=== PATIENT | female | born 1980 | race Caucasian/White ===

== ENCOUNTER 2023-06-10 08:11 | Outpatient (OUT) | payer BC, OTHER, SELFPAY ==
--- NOTE | 2023-06-10 08:36 | ECG_ITS ---
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
[2023-06-10 09:46] LABS: Partial Thromboplastin Time 28.8 sec (22.3-36.2); Prothrombin Time 9.8 sec (9.0-11.6)
[2023-06-10 10:11] LABS: INR <0.93
[2023-06-10 10:14] LABS: Basophils Absolute Auto 0.1 10^3/uL (0.0-0.1); Basophils Percent Auto 1.5 % (0.2-2.0); Eosinophils Absolute Auto 0.4 10^3/uL (0.0-0.7); Eosinophils Percent Auto 8.2 % (0.9-7.0); Hemoglobin 14.5 g/dL (12.0-16.0); Immature Granulocytes Abs Auto 0.01 10^3/uL (0.00-0.03); Immature Granulocytes Pct Auto 0.2 % (0.0-0.5); Lymphocytes Absolute Auto 1.3 10^3/uL (1.2-3.8); Mean Corpuscular Hemoglobin 29.9 pg (26.7-34.0); Mean Corpuscular Volume 90.7 fL (81.0-99.0); Monocytes Absolute Auto 0.3 10^3/uL (0.3-0.8); Monocytes Percent Auto 5.6 % (1.7-12.0); Neutrophils Absolute Auto 2.7 10^3/uL (1.4-6.5); Neutrophils Percent Auto 56.5 % (43.0-75.0); Platelet Count 289 10^3/uL (150-450); Red Blood Count 4.85 10^6/uL (4.20-5.40); Red Cell Distribution Width 12.9 % (11.0-15.0); White Blood Count 4.8 10^3/uL (4.0-11.0)
[2023-06-10 13:10] LABS: Alanine Aminotransferase 22 U/L (14-59); Albumin Level 3.8 g/dL (3.4-5.0); Alkaline Phosphatase 100 U/L (46-116); Anion Gap 9.3; Aspartate Amino Transferase 11 U/L (15-37); BUN Creatinine Ratio 14.4; Bilirubin Direct 0.1 mg/dL (0.0-0.2); Bilirubin Total 0.3 mg/dL (0.2-1.0); Calcium 10.4 mg/dL (8.5-10.1); Carbon Dioxide 30.5 mmol/L (21.0-32.0); Chloride 103 mmol/L (98-107); Estimated GFR (African America >60 (>=60); Estimated GFR (Non-African Ame >60 (>=60); Globulin 3.9 g/dL; Glucose 79 mg/dL (74-106); Potassium 3.8 mmol/L (3.5-5.1); Sodium 139 mmol/L (136-145); Total Protein 7.7 g/dL (6.4-8.2)
== END 2023-06-10 08:12 | disposition home or self-care (01) ==
LOC: PST 08:15
PROVIDERS: Visit Provider Obstetrics & Gynecology
DX: Z01.810 Encounter for preprocedural cardiovascular examination (principal); Z01.812 Encounter for preprocedural laboratory examination; N92.0 Excessive and frequent menstruation with regular cycle; R10.2 Pelvic and perineal pain; N94.10 Unspecified dyspareunia
CPT/HCPCS: 80048; 80076; 85025; 85610; 85730; 86850; 86900; 86901; 93005

== ENCOUNTER 2023-06-19 11:00 | Day surgery (SDC) | payer BC, OTHER, SELFPAY ==
[2023-06-10 08:43] VITALS: BP 137/89; PULSE 89; RESP 18; TEMP 36.4; O2SAT 98; BMI 37.5
[2023-06-19] VITALS (14 sets, daily range): BP systolic 92–147; BP diastolic 61–97; PULSE 78–120; RESP 10–18; TEMP 36.2–37.1; O2SAT 88–98; BMI 37.5; BMI 39.5
[2023-06-19] MEDS: LACTATED RINGER'S SOLUTION 1,000 ML 50 ML IV ×2 (11:41→13:49)
[2023-06-19] MEDS: CIPROFLOXACIN IN 5 % DEXTROSE 400 MG/200 ML PIGGYBACK 200 MG IV (11:41)
[2023-06-19 12:02] LABS: Basophils Absolute Auto 0.1 10^3/uL (0.0-0.1); Eosinophils Absolute Auto 0.4 10^3/uL (0.0-0.7); Eosinophils Percent Auto 5.4 % (0.9-7.0); Hematocrit 41.1 % (36.0-48.0); Hemoglobin 13.6 g/dL (12.0-16.0); Immature Granulocytes Abs Auto 0.01 10^3/uL (0.00-0.03); Immature Granulocytes Pct Auto 0.1 % (0.0-0.5); Lymphocytes Absolute Auto 1.7 10^3/uL (1.2-3.8); Lymphocytes Percent Auto 23.9 % (20.5-60.0); Mean Corpuscular HGB Conc 33.1 g/dL (29.9-35.2); Mean Corpuscular Hemoglobin 29.9 pg (26.7-34.0); Mean Corpuscular Volume 90.3 fL (81.0-99.0); Mean Platelet Volume 10.3 fL (9.5-13.5); Monocytes Absolute Auto 0.4 10^3/uL (0.3-0.8); Monocytes Percent Auto 5.8 % (1.7-12.0); Neutrophils Absolute Auto 4.5 10^3/uL (1.4-6.5); Neutrophils Percent Auto 63.8 % (43.0-75.0); Platelet Count 261 10^3/uL (150-450); Red Blood Count 4.55 10^6/uL (4.20-5.40); Red Cell Distribution Width 12.8 % (11.0-15.0); White Blood Count 7.1 10^3/uL (4.0-11.0)
[2023-06-19 12:05] LABS: HCG Quantitative <1 mIU/mL
[2023-06-19] MEDS: SCOPOLAMINE 1 MG/3 DAYS TRANSDERM PATCH 1 PATCH TD (12:44)
[2023-06-19] MEDS: METRONIDAZOLE/SODIUM CHLORIDE 500 MG/100 ML PREMIX 100 MG IV ×3 (13:00→23:09)
[2023-06-19] MEDS: 0.9 % SODIUM CHLORIDE 10 ML 30 ML INJ (13:24)
[2023-06-19] MEDS: LIDOCAINE HCL 1%-EPINEPHRINE 1:100,000 20 ML MDV INJ (13:25)
--- NOTE | 2023-06-19 16:01 | P.ON_ITS ---
Brief Operative Note Date of procedure: 06/19/23 Pre-op diagnosis: pelvic pain, dyspareunia, menorrhagia, dysmenorrhea Post-op diagnosis: same as pre-op Procedure: NAME OF PROCEDURE: ? vNOTES hysterectomy with bilateral salpingectomy with cystoscopy. removal of essure coils and lt ovarian cystotomy using a needle. PROCEDURE:? Patient was brought back to the operating room where she was given general anesthesia.? She was placed in the dorsolithotomy position, after being prepped and draped in a sterile fashion.? A Wright catheter was placed.? A weighted speculum was placed posterior in the vagina.? The cervix was grasped anteriorly and posteriorly with two single tooth tenaculums and placed on traction.? A solution of Marcaine, lidocaine and epinephrine and saline was liberally infiltrated into the cervical vaginal junction.? The knife was then used to circumscribe the cervical vaginal junction and the posterior cul-de-sac was sharply entered without difficulty.? A long weighted duck tail speculum was placed and the peritoneum was tacked to the vaginal epithelium.? We then turned our attention to the uterosacral ligaments which were bilaterally cross clamped, transected and suture ligated and then were held with hemostats.? Attention was then turned to the anterior compartment, where the cervical vaginal junction was similarly divided, and the bladder was then sharply and bluntly dissected off the cervix and the lower uterine segment, and the anterior cul-de-sac was sharply entered.? The vaginal epithelium was tacked to the peritoneum.? Lateral attachments of the uterus were secured with Ever clamps and suture ligated.? The retractors were then removed and were placed by the path inner ring anteriorly followed by posteriorly.? Once the ring was seated, the gel cap was placed and the laparoscopic ports were placed through this cap and the gas was allowed to insufflate the pelvis.? A GynLap was placed posteriorly to facilitate mobilization of the bowel, control bleeding.? This was later retrieved.? The LigaSure device was used to secure the lateral attachments of the uterus on the left side, including the cardinal ligaments and the uterine vasculature.? Once the utero-ovarian ligament was reached, we turned our attention to the right side where the LigaSure device was used to fully detach the uterus from the pelvic side wall.? Please note the ligasure was used to perform bilateral salpingectomy, excellent hemostasis was noted. The ureters were seen visually; before, during and after the pedicles were created.? The ureters were bilaterally in normal locations, peristalsing.? ?? Please note that the LigaSure was used on the patient?s left side to fully detach the uterus from the pelvic side wall.? The uterus was removed from the field.? The GynLap was also removed from the field.? The inner ring and gel port caps were removed and the vaginal retractors were replaced.? Lateral figure of eight sutures were placed bilaterally, where bleeding occurred, behind the ring, and no further sutures were needed.? The colpopexy was then carried out, passing a stitch posteriorly to the vaginal wall, capturing the left uterosacral ligament, going across the peritoneum posteriorly to the right and exiting out the vaginal wall posteriorly.? The vaginal cuff was closed in a single running locked stitch using 0 Monocryl, and the uterosacral ligaments were cut.? Once the vaginal cuff was fully closed, the uterosacral colpopexy stitch was then tied down tightly, elevating the vaginal cuff to the uterosacral ligaments in a satisfactory manner.? The Wright catheter was removed and the patient was awakened and taken to recovery in excellent condition.? Sponge, lap and instruments counts correct x2.? lt ovarian cystotomy using a needle, essure coils removed with tubes. Anesthesia: DAVID Surgeon: Nahun Argueta Disease Education Specialist: Mariya Wan Estimated blood loss (mL): 499 Pathology: other (uterus and tubes) Condition: stable Disposition: PACU
[2023-06-19] MEDS: ONDANSETRON PF 4 MG/2 ML VIAL IV (16:31)
[2023-06-19] MEDS: OXYCODONE HCL/ACETAMINOPHEN 5MG/325MG 1 TAB PO (23:11)
[2023-06-20] MEDS: CIPROFLOXACIN IN 5 % DEXTROSE 400 MG/200 ML PIGGYBACK 200 MG IV (00:13)
[2023-06-20 05:08] LABS: Basophils Percent Auto 0.1 % (0.2-2.0); Hematocrit 33.4 % (36.0-48.0); Immature Granulocytes Abs Auto 0.02 10^3/uL (0.00-0.03); Immature Granulocytes Pct Auto 0.2 % (0.0-0.5); Lymphocytes Absolute Auto 0.8 10^3/uL (1.2-3.8); Lymphocytes Percent Auto 7.4 % (20.5-60.0); Mean Corpuscular HGB Conc 32.9 g/dL (29.9-35.2); Mean Corpuscular Hemoglobin 30.1 pg (26.7-34.0); Mean Corpuscular Volume 91.3 fL (81.0-99.0); Mean Platelet Volume 10.6 fL (9.5-13.5); Monocytes Absolute Auto 0.5 10^3/uL (0.3-0.8); Monocytes Percent Auto 4.4 % (1.7-12.0); Neutrophils Absolute Auto 9.9 10^3/uL (1.4-6.5); Neutrophils Percent Auto 87.9 % (43.0-75.0); Platelet Count 238 10^3/uL (150-450); Red Blood Count 3.66 10^6/uL (4.20-5.40); Red Cell Distribution Width 12.7 % (11.0-15.0); White Blood Count 11.3 10^3/uL (4.0-11.0)
[2023-06-20 05:56] VITALS: BP 127/67; PULSE 115; RESP 18; TEMP 36.8; O2SAT 91
[2023-06-20] MEDS: OXYCODONE HCL/ACETAMINOPHEN 5MG/325MG 1 TAB PO (07:48)
[2023-06-20] MEDS: MAGNESIUM HYDROXIDE 2,400 MG/10 ML ORAL.SUSP 2400 MG PO (07:48)
== END 2023-06-20 08:18 | disposition home or self-care (01) ==
LOC: SURGOUT 15:16 → MS 16:44
PROVIDERS: Visit Provider Obstetrics & Gynecology
PROC: (CPT 49322; principal; 2023-06-19 12:30)
DX: N92.0 Excessive and frequent menstruation with regular cycle (principal); R10.2 Pelvic and perineal pain; N94.10 Unspecified dyspareunia; I10 Essential (primary) hypertension; N72 Inflammatory disease of cervix uteri
CPT/HCPCS: 49322; 58552; 36415; 51702; 84702; 85025; 85027; 88307; 94667; J1170; J2704

== ENCOUNTER 2024-07-09 06:59 | Outpatient (OUT) | payer BC, OTHER, SELFPAY ==
--- NOTE | 2024-07-09 07:03 | MM_ITS ---
Patient Name: CHRIS CRAWFORD MR#: [id number] : 1980 Exam Date: 07/09/2024 Ordering Doctor: DR Nahun Argueta . RADIOLOGY REPORT PROCEDURE: MM TOMOSYNTHESIS SCREENING BI COMPARISON: MG MAMM SCREEN 3D JOE CAD, 12/18/2022. INDICATIONS: Screening Calculator Name NCI Breast Cancer Risk Assessment Tool 5 Year Breast Cancer Risk 0.60% Lifetime Breast Cancer Risk 8.80% Personal Breast Cancer No Personal Ovarian Cancer No Treatments None Family Cancers None LOCATION: [facility] BREAST COMPOSITION: The breasts are heterogeneously dense,which may obscure small masses. FINDINGS: DIAGNOSTIC CATEGORY 2--BENIGN FINDING. NO CHANGE FROM COMPARISON. Scattered benign-appearing calcifications are present. Scattered benign-appearing lymph nodes are present. RIGHT BREAST: No significant suspicious finding. LEFT BREAST: No significant suspicious finding. RECOMMENDATIONS: ROUTINE MAMMOGRAM AND CLINICAL EVALUATION IN 12 MONTHS. PLEASE NOTE: A NORMAL MAMMOGRAM DOES NOT EXCLUDE THE POSSIBILITY OF BREAST CANCER. A CLINICALLY SUSPICIOUS PALPABLE LUMP SHOULD BE BIOPSIED. Dictated by: Glen Brown MD on 07/09/2024 at 07:51 Approved by: Glen Brown MD on 07/09/2024 at 07:52
== END 2024-07-09 07:00 | disposition home or self-care (01) ==
LOC: MAMMO 07:00
PROVIDERS: PCP Family Medicine; Visit Provider Obstetrics & Gynecology
DX: Z12.31 Encounter for screening mammogram for malignant neoplasm of breast (principal)
CPT/HCPCS: 77063; 77067

== ENCOUNTER 2024-08-09 20:24 | Outpatient (REF) | payer BC, OTHER, SELFPAY ==
--- OUTSIDE RECORDS SUMMARY | 2024-08-09 20:28 | XMS_ITS | CCD ---
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 Role Phone Nicho Mayen Unavailable SAIRA ., ZAINAB Admitting Unavailable SAIRA ., ZAINAB Attending Unavailable SAIRA ., ZAINAB Consulting Unavailable SAIRA ., ZAINAB Admitting Unavailable SAIRA Johnson, ZAINAB Attending Unavailable DR BRYON EUGENE Consulting Unavailable SAIRA ., ZAINAB Consulting Unavailable Anay Peacock Consulting Unavailable ZAINAB CHÁVEZ Attending Unavailable Nicho Mayen MD Primary Care Provider [phone] Allergies Allergy Classification Reported Allergen(s) Allergy Type Date of Onset Reaction(s) Facility (9 sources) Azithromycin Drug Allergy 3 Hives, Unknown [facility] Work Phone: (7 sources) Cefaclor; Translations: [Ceclor] Drug Allergy 3 Unknown [facility] (1 source) Azithromycin Drug Allergy 3 [facility] (3 sources) Cefaclor Drug Allergy 3 Hives [facility] Medications Current Medications Medication Drug Class(es) Dates Sig (Normalized) Sig (Original) fluticasone propionate 0.05 mg/actuat metered dose nasal spray (3 sources) Corticosteroid fluticasone (Flonase Allergy Relief) 50 MCG/ACT nasal spray 1 (one) time each day at the same time. Active hydroCHLOROthiazide 12.5 mg / lisinopril 10 mg oral tablet (9 sources) Thiazide Diuretic, Angiotensin Converting Enzyme Inhibitor lisinopril-hydr oCHLOROthiazide 10-12.5 MG tablet Indications: Menorrhagia with irregular cycle 1 (one) time each day at the same time. Active ibuprofen 800 mg oral tablet (3 sources) Nonsteroidal Anti-inflammatory Drug Start: 10-13-2023 take 1 tablet by mouth every eight hours ibuprofen 800 MG tablet Take 800 mg by mouth every 8 (eight) hours. 06/20/2023 Active Tobramycin-Dexamethasone 0.3-0.05 % (3 sources) take 1 drop(s) into the eye(s) twice daily Tobramycin-Dexa methasone 0.3-0.05 % 1 drop(s) Ophthalmic bid Active Completed/Discontinued Medications Medication Drug Class(es) Dates Sig (Normalized) Sig (Original) benzonatate 100 mg oral capsule (6 sources) Non-narcotic Antitussive Start: 09-12-2021 take 1 capsule by mouth three times daily as needed Tessalon Perles 100 MG 1 capsule as needed Orally Three times a day Sep, Not-Taking/PRN ciprofloxacin 500 mg oral tablet (6 sources) Quinolone Antimicrobial take 1 tablet by mouth every twelve hours Ciprofloxacin HCl 500 MG 1 tablet Orally Twice a day Not-Taking/PRN hydrOXYzine pamoate 25 mg oral capsule (6 sources) Antihistamine Start: 04-06-2019 take 1 capsule by mouth every eight hours as needed hydrOXYzine Pamoate 25 MG 1-2 capsule as needed for itching Orally every 8 hrs caution drowsiness Mar, Not-Taking/PRN Tobramycin-dexAMETH asone 0.3-0.05 % (3 sources) take 1 drop(s) into the eye(s) twice daily as needed Tobramycin-dexAMET Hasone 0.3-0.05 % 1 drop(s) Ophthalmic bid Not-Taking/PRN take 1 drop(s) into the eye(s) twice daily Tobramycin-dexAMETHasone 0.3-0.05 % 1 dr op(s) Ophthalmic bid Active Problems Active Problems Problem Classification Problem Date Documented Date Episodic/Chronic Essential hypertension (7 sources) Essential hypertension; Translations: [Essential (primary) hypertension] Chronic Menstrual disorders (7 sources) Excessive and frequent menstruation with irregular cycle; Translations: [Menometrorrhagia] Onset: 12-18-2022 Chronic Other ear and sense organ disorders (3 sources) Chronic otitis externa; Translations: [Unspecified chronic otitis externa, unspecified ear] Onset: 02-04-2023 02-04-2023 Chronic Other ear and sense organ disorders (3 sources) Left conductive hearing loss; Translations: [Conductive hearing loss, unilateral, left ear, with unrestricted hearing on the contralateral side] Onset: 02-04-2023 02-04-2023 Chronic Other screening for suspected conditions (not mental disorders or infectious disease) (3 sources) Encounter for screening mammogram for malignant neoplasm of breast; Translations: [Patient encounter status] Onset: 12-23-2022 08-09-2024 Episodic Ovarian cyst (1 source) Other ovarian cyst, right side; Translations: [OTHER OVARIAN CYST RIGHT SIDE] Onset: 12-23-2022 Episodic Residual codes; unclassified (6 sources) Insomnia; Translations: [Insomnia, unspecified] Episodic Viral infection (6 sources) Plantar wart of right foot; Translations: [Plantar wart] Episodic Past or Other Problems Problem Classification Problem Date Documented Da te Episodic/Chronic Unclassified (1 source) Cough R05.9 Onset: 09-12-2021 Resolved: 09-12-2021 Unclassified (1 source) Exposure to COVID-19 virus Z20.822 Onset: 09-17-2021 Resolved: 09-17-2021 Results Test Name Value Interpretation Reference Range Facility CBC AUTO DIFFon 12-18-2022 BASO # 0.0 103/ul Normal 0.0-0.1 [facility] Comment on above: Performed By: #### C BC #### [facility] [address] [place] [address] Dr. Christopher Arzola Basophils/100 WBC (Bld) 0.4 % Normal 0.2-2.0 [facility] Comment on above: Performed By: #### C BC #### [facility] [address] [place] [address] Dr. Christopher Arzola EO # 0.1 103/ul Normal 0.0-0.7 [facility] Comment on above: Performed By: #### C BC #### [facility] [address] [place] [address] Dr. Christopher Arzola Eosinophils/100 WBC (Bld) 2.3 % Normal 0.9-7.0 [facility] Comment on above: Performed By: #### C BC #### [facility] [address] [place] [address] Dr. Christopher Arzola Erythrocyte distribution width (RBC) [Ratio] 12.8 % Normal 11.0-15.0 [facility] Comment on above: Performed By: #### C BC #### [facility] [address] [place] [address] Dr. Christopher Arzola Hematocrit (Bld) [Volume fraction] 40.8 % Normal 36.0-48.0 [facility] Comment on above: Performed By: #### C BC #### [facility] [address] [place] [address] Dr. Christopher Arzola Hemoglobin (Bld) [Mass/Vol] 13.8 g/dL Normal 12.0-16.0 [facility] Comment on above: Performed By: #### C BC #### [facility] [address] [place] [address] Dr. Christopher Arzola IG # 0.02 10e3/ul Normal 0.00-0.03 [facility] Comment on above: Performed By: #### C BC #### [facility] [address] [place] [address] Dr. Christopher Arzola IG % 0.4 % Normal 0.0-0.5 [facility] Comment on above: Performed By: #### C BC #### [facility] [address] [place] [address] Dr. Christopher Arzola LYMPH # 1.1 103/ul Critically low 1.2-3.8 [facility] Comment on above: Performed By: #### C BC #### [facility] [address] [place] [address] Dr. Christopher Arzola Lymphocytes/100 WBC (Bld) 20.9 % Normal 20.5-60.0 [facility] Comment on above: Performed By: #### C BC #### [facility] [address] [place] [address] Dr. Christopher Arzola MANUAL DIFF REQ NO Normal [facility] Comment on above: Performed By: #### C BC #### [facility] [address] [place] [address] Dr. Christopher Arzola MCH (RBC) [Entitic mass] 29.6 pg Normal 26.7-34.0 [facility] Comment on above: Performed By: #### C BC #### [facility] [address] [address] [address] Christopher Arzola MCHC (RBC) [Mass/Vol] 33.8 g/dL Normal 29.9-35.2 [facility] Comment on above: Performed By: #### C BC #### [facility] [address] [address] [address] Christopher Arzola MCV (RBC) [Entitic vol] 87.6 fL Normal 81.0-99.0 [facility] Comment on above: Performed By: #### C BC #### [facility] [address] [place] [address] Dr. Christopher Arzola MONO # 0.4 103/ul Normal 0.3-0.8 [facility] Comment on above: Performed By: #### C BC #### [facility] [address] [place] [address] Dr. Christopher Arzola Monocytes/100 WBC (Bld) 6.9 % Normal 1.7-12.0 [facility] Comment on above: Performed By: #### C BC #### [facility] [address] [place] [address] Dr. Christopher Arzola NEUT # 3.6 103/ul Normal 1.4-6.5 [facility] Comment on above: Performed By: #### C BC #### [facility] [address] [place] [address] Dr. Christopher Arzola Neutrophils/100 WBC (Bld) 69.1 % Normal 43.0-75.0 [facility] Comment on above: Performed By: #### C BC #### [facility] [address] [place] [address] Dr. Christopher Arzloa Platelet mean volume (Bld) [Entitic vol] 9.5 fL Normal 9.5-13.5 [facility] Comment on above: Performed By: #### C BC #### [facility] [address] [place] [address] Dr. Christopher Arzola PLT 230 103/ul Normal 150-450 [facility] Comment on above: Performed By: #### C BC #### [facility] [address] [place] [address] Dr. Christopher Arzola RBC 4.66 106/ul Normal 4.20-5.40 [facility] Comment on above: Performed By: #### C BC #### [facility] [address] [place] [address] Dr. Christopher Arzola WBC 5.2 103/ul Normal 4.0-11.0 [facility] Comment on above: Performed By: #### C BC #### [facility] [address] [place] [address] Dr. Christopher Arzola FREE T4on 12-18-2022 Free T4 [Mass/Vol] 1.06 ng/dL Normal 0.76-1.46 [facility] Comment on above: Performed By: #### F T4 #### [facility] [address] [place] [address] Dr. Christopher Arzola GLYCOHEMOGLOBIN A1Con 2022 ADA RECOMMENDATION SEE BELOW Normal [facility] Comment on above: Result Comment: ADA RECOMMENDED LIMIT 4.0 - 6.0 ADA THERAPEUTIC TARGET < 7.0 ACTION SUGGESTED > 7.0 Performed By: #### A 1C #### [facility] [address] [place] [address] Dr. Christopher Arzola Glucose [Mass/Vol] 97 mg/dL Normal [facility] Comment on above: Performed By: #### A 1C #### [facility] [address] [place] [address] Dr. Christopher Arzola HbA1c (Bld) [Mass fraction] 5.0 % Normal 4.5-6.2 [facility] Comment on above: Performed By: #### A 1C #### [facility] [address] [place] [address] Dr. Christopher Arzola MG MAMM SCREEN 3D JOE CADon 12-18-2022 MG MAMM SCREEN 3D JOE CAD Patient: DARA CONCEPCION Exam Date: 12/18/2022 : 1980 Gender:F Ordering : REINA CHÁVEZ . Admission #: [id number] Family : Order #: [id number] CLICK HERE TO VIEW EXAM RADIOLOGY REPORT PROCEDURE: MAMMOGRAM SCREENING 3D BILATERAL CAD COMPARISON: None. INDICATIONS: Screening mammography Calculator Name NCI Breast Cancer Risk Assessment Tool 5 Year Breast Cancer Risk 0.60% Lifetime Breast Cancer Risk 8.90% Personal Breast Cancer No Personal Ovarian Cancer No Treatments None Family Cancers None LOCATION: [facility] BREAST COMPOSITION: Heterogeneously dense,which may obscure small masses. FINDINGS: DIAGNOSTIC CATEGORY 1--NEGATIVE. RIGHT BREAST: No significant suspicious finding. LEFT BREAST: No significant suspicious finding. RECOMMENDATIONS: ROUTINE MAMMOGRAM AND CLINICAL EVALUATION IN 12 MONTHS. PLEASE NOTE: A NORMAL MAMMOGRAM DOES NOT EXCLUDE THE POSSIBILITY OF BREAST CANCER. A CLINICALLY SUSPICIOUS PALPABLE LUMP SHOULD BE BIOPSIED. Dictated by: Bryon Eugene M.D. on 12/18/2022 at 13:13 Approved by: Bryon Eugene M.D. on 12/18/2022 at 13:15 Normal [facility] PREG QUANT HCGon 12-18-2022 HCG QUANT <1 Normal [facility] Comment on above: Performed By: #### T SH, PREGQNT #### [facility] [address] [place] [address] Dr. Christopher Arzola HCG RANGE SEE BELOW [facility] Comment on above: Result Comment: 5-50 0.2-1 WEEK 50-500 1-2 WEEKS 100-5,000 2-3 WEEKS 500-10,000 3-4 WEEKS 1,000-50,000 4-5 WEEKS 10,000-100,000 5-6 WEEKS 15,000-200,000 6-8 WEEKS 10,000-100,000 2-3 MONTHS Performed By: #### T SH, PREGQNT #### [facility] [address] [address] [address] Christopher Arzola PROTIMEon 12-18-2022 INR Coag (PPP) [Relative time] {INR} [facility] Comment on above: Performed By: #### P T, PTT #### [facility] [address] [place] [address] Dr. Christopher Arzola INR GUIDELINES SEE BELOW Normal [facility] Comment on above: Result Comment: ERIC RED INR: 2.0 - 3.0 CONDITIONS NOT LISTED BELOW 2.5 - 3.5 FOR PROSTHETIC HEART VALVE REPLACEMENT 2.5 - 3.5 RECURRENT THROMBOSIS Performed By: #### P T, PTT #### [facility] [address] [place] [address] Dr. Christopher Arzola PT Coag (PPP) [Time] 9.6 s Normal 9.0-11.6 [facility] Comment on above: Performed By: #### P T, PTT #### [facility] [address] [place] [address] Dr. Christopher Arzola PTTon 12-18-2022 aPTT Coag (Bld) [Time] 30.1 s Normal 22.3-36.2 [facility] Comment on above: Performed By: #### P T, PTT #### [facility] [address] [place] [address] Dr. Christopher Arzola TSHon 12-18-2022 TSH 1.159 uIU/mL Normal 0.358-3.740 [facility] Comment on above: Performed By: #### T SH, PREGQNT #### [facility] [address] [place] [address] Dr. Christopher Arzola US PELVIS AND TRANSVAGon US PELVIS AND TRANSVAG EXAM: Pelvic ultrasound HISTORY: . Excessive menstruation with irregular cycle . COMPARISON: None. TECHNIQUE: Transabdominal and transvaginal scanning was performed FINDINGS: Scanning of the pelvis demonstrates uterus to be anteverted and measures 9.6 x 3.7 x 4.4 cm. Within the myometrium of the fundus of uterus there is a 2.2 x 2 cm slightly hypoechoic solid area consistent with uterine fibroid. Endometrial complex measures 5 mm. Right ovary measures 4.3 x 3.4 x 3.2 cm. Color-flow is noted. Resistive indexes 0.5. There is a 3.6 x 2.9 cm cyst within the right ovary. Left ovary measures 2.9 x 1.7 x 1.3 cm. Color-flow is noted. No masses are noted. Nabothian cyst are noted within the cervix. No fluid is noted in the cul-de-sac. IMPRESSION: 1. Anteverted uterus. There is a 2.2 cm) within the myometrium of the fundus of uterus posteriorly. 2. Normal-appearing endometrial complex. 3. 3.6 x 2.9 cm simple cyst involving the right ovary. 4. Left ovary is unremarkable. Electronically authenticated by: ANAY PEACOCK Date: 2022-12-18 08:14 Normal [facility] PAP ACOG PANEL 2: 30 to 65on 12-13-2022 . . Normal [facility] Comment on above: Result Comment: Perf ormed at: WB Performed By: #### [id number] #### [facility] [address] [address] [address] Christopher Arzola Age Gdln ACOG Testing - Normal [facility] Comment on above: Performed By: #### 4 [id number] #### [facility] [address] [address] [address] Christopher Arzola DIAGNOSIS: Comment Normal [facility] Comment on above: Result Comment: NEGA TIVE FOR INTRAEPITHELIAL LESION OR MALIGNANCY. Performed at: WB Performed By: #### [id number] #### [facility] [address] [address] [address] Christopher Arzola HPV Aptima Negative Normal Negative [facility] Comment on above: Result Comment: This nucleic acid amplification test detects fourteen high-risk HPV types (16,18,31,33,35,39,45,51,52,56,58,59,66,68) without differentiation. Performed at: =G Performed By: #### 4 [id number] #### [facility] [address] [address] [address] Christopher Arzola HPV Genotype Reflex Comment Normal [facility] Comment on above: Result Comment: Crit eria not met, HPV Genotype not performed. Performed at: WB Performed By: #### [id number] #### [facility] [address] [address] [address] Christopher Arzola Methodology: CTIM Normal [facility] Comment on above: Result Comment: The [employer](R) Director Of Social Media Marketing was unable to read this specimen. Therefore a manual review was performed. Performed at: WB Performed By: #### [id number] #### [facility] [address] [address] [address] Christopher Arzola Note: Comment Normal [facility] Comment on above: Result Comment: The Pap smear is a screening test designed to aid in the detection of premalignant and malignant conditions of the uterine cervix. It is not a diagnostic procedure and should not be used as the sole means of detecting cervical cancer. Both false-positive and false-negative reports do occur. . Performed at: WB Performed By: #### [id number] #### [facility] [address] [address] [address] Christopher Arzola Performed by: Comment Normal [facility] Comment on above: Result Comment: Allan Lozano, [employer] (ASCP) Performed at: WB Performed By: #### [id number] #### [facility] [address] [place] [address] Dr. Christopher Arzola Specimen adequacy: Comment Normal [facility] Comment on above: Result Comment: Sati sfactory for evaluation. Endocervical and/or squamous metaplastic cells (endocervical component) are present. Performed at: WB Performed By: #### [id number] #### [facility] [address] [place] [address] Dr. Christopher Arzola COVID-19 Lab Corpon 10-08-19 22 SARS-CoV-2 (COVID-19) RNA BREANNA+probe Ql (Unsp spec) Detected Critically abnormal Not Detected [facility] Comment on above: Order Comment: Healt hcare Worker?: N Result Comment: Cassidy ents who have a positive COVID-19 test result may now have treatment options. Treatment options are available for patients with mild to moderate symptoms and for hospitalized patients. Visit our website at [email or web address] for resources and information. This nucleic acid amplification test was developed and its performance characteristics determined by [employer]. Nucleic acid amplification tests include RT- PCR and TMA. This test has not been FDA cleared or approved. This test has been authorized by FDA under an Emergency Use Authorization (EUA). This test is only authorized for the duration of time the declaration that circumstances exist justifying the authorization of the emergency use of in vitro diagnostic tests for detection of SARS-CoV-2 virus and/or diagnosis of COVID-19 infection under section 564(b)(1) of the Act, 21 U.S.C. 360bbb-3(b) (1), unless the authorization is terminated or revoked sooner. When diagnostic testing is negative, the possibility of a false negative result should be considered in the context of a patient's recent exposures and the presence of clinical signs and symptoms consistent with COVID-19. An individual without symptoms of COVID-19 and who is not shedding SARS-CoV-2 virus would expect to have a negative (not detected) result in this assay. PERFORMED BY: [address] [place] [address] PATHOLOGIST IDENTIFICATION TECHNICIAN AN ALBA M.D. Performed By: #### C ORONAVIRUS #### [facility] , COVID + FLU Quick Testingon 09-17-2021 SARS-CoV-2 (COVID-19) RNA BREANNA+probe Ql (Unsp spec) Negative [facility] Other COVID + FLU Quick Testing Negative [facility] Other Ear Cultureon 06-29-2021 Ear Culture Reason for Exam Otorrhea Ear, Right ORGANISM: Pseudomonas aeruginosa (O:PSEAER) Quantity of Growth Heavy Growth ORGANISM: Staphylococcus aureus (O:STAAUR) Quantity of Growth Moderate Growth Aerobic LOR[facility]ZA Charge (NUC86) ----- SUSCEPTIBILITY ---- ORGANISM: O:PSEAER ANTIBIOTIC INTERPRETATION [facility] Amikacin S <16 Aztreonam IB <4 Cefepime S <2 Ceftazidime IB <1 Ceftazidime/Avibacta m S <8 Ciprofloxacin S <1 Gentamicin S <4 Levofloxacin S <2 Meropenem S <1 Piperacillin/Tazobac dubose IB <16 Tobramycin S <4 Aerobic LOR[facility]ZA Charge (PC45) ----- SUSCEPTIBILITY ---- ORGANISM: O:STAAUR ANTIBIOTIC INTERPRETATION [facility]OR[facility]ZA Amoxacillin/K Clavulanate S <4/2 Ampicillin/Sulbactam S <8/4 Azithromycin S <2 Cefazolin S <8 Ceftaroline S <0.5 Ceftriaxone S <8 Ciprofloxacin S <1 Clindamycin S <0.5 Daptomycin S <1 Erythromycin S <0.25 Levofloxacin S <1 Linezolid S <2 Meropenem S <4 Oxacillin S <0.25 Penicillin S <0.03 Piperacillin/Tazobac dubose S <4 Rifampin S <1 Tetracycline S <4 Trimethoprim/Sulfame thoxazole S <0.5/9.5 Vancomycin S 1 S = SUSCEPTIBLE I = INTERMEDIATE R = RESISTANT BLANK = DATA NOT AVAILABLE, OR DRUG NOT ADVISABLE OR TESTED R* = RESISTANCE DUE TO EXTENDED SPECTRUM BETA-LACTAMASES ESBL = EXTENDED SPECTRUM BETA-LACTAMASE TFG = THYMIDINE-DEPENDENT STRAIN ADIA = BETA-LACTAMASE POSITIVE IB = INDUCIBLE BETA-LACTAMASE. APPEARS IN PLACE OF 'S' WITH SPECIES KNOWN TO POSSESS INDUCIBLE BETA-LACTAMASES. POTENTIALLY THEY MAY BECOME RESISTANT TO ALL B-LACTAM DRUGS. PERFORMED BY: [place] [address] PATHOLOGIST IDENTIFICATION TECHNICIAN AN ALBA M.D. [facility] Comment on above: Performed By: #### JOHN TAPIA #### [place] [id number] [facility] Fungus Cultureon 06-29-2021 Fungus Culture Reason for Exam Otorrhea Ear, Right Fungus Culture Results No Growth 4 Weeks PERFORMED BY: [place] [address] PATHOLOGIST IDENTIFICATION TECHNICIAN AN ALBA M.D. [facility] Comment on above: Performed By: #### JOHN TAPIA #### [address] [place] [id number] [facility] Vital Signs Date Time Vital Sign Value Performing Clinician Facility 08-09-2024 09:29-0500 Body height 165.1 cm Zainab HUANG Work Phone: [facility] 08-09-2024 09:29-0500 Body mass index (BMI) [Ratio] 37.44 kg/m2 Zainab Chávez PA Work Phone: [facility] 08-09-2024 09:29-0500 Body weight 102.06 kg Zainab Chávez PA Work Phone: [facility] 08-09-2024 09:29-0500 Diastolic blood pressure 70 mm[Hg] Zainab Chávez PA Work Phone: [facility] 08-09-2024 09:29-0500 Systolic blood pressure 108 mm[Hg] Zainab Chávez PA Work Phone: [facility] 10-06-2023 08:00-0500 Body height 166.37 cm Nicho Mast Other [facility] Other 10-06-2023 08:00-0500 Body mass index (BMI) [Ratio] 36.29 kg/m2 Nicho Mast Other [facility] Other 10-06-2023 08:00-0500 Body temperature 97.5 [degF] Nicho Mast Other [facility] Other 10-06-2023 08:00-0500 Body weight 100.47 kg Nicho Mast Other [facility] Other 10-06-2023 08:00-0500 Diastolic blood pressure 82 mm[Hg] Nicho Mast Other [facility] Other 10-06-2023 08:00-0500 Respiratory rate 18 /min Nicho Mast Other [facility] Other 10-06-2023 08:00-0500 SaO2% (BldA) [Mass fraction] 98 % Nicho Mast Other [facility] Other 10-06-2023 08:00-0500 Systolic blood pressure 130 mm[Hg] Nicho Mast Other [facility] Other 09-12-2021 16:30-0500 Body height 166.37 cm Nicho Mast Other [facility] Other 09-12-2021 16:30-0500 Body mass index (BMI) [Ratio] 37.46 kg/m2 Nicho Mast Other [facility] Other 09-12-2021 16:30-0500 Body temperature 98 [degF] Nicho Mast Other [facility] Other 09-12-2021 16:30-0500 Body weight 103.69 kg Nicho Mast Other [facility] Other 09-12-2021 16:30-0500 Diastolic blood pressure 80 mm[Hg] Nicho Mast Other [facility] Other 09-12-2021 16:30-0500 Respiratory rate 18 /min Nicho Mast Other [facility] Other 09-12-2021 16:30-0500 SaO2% (BldA) [Mass fraction] 99 % Nicho Mast Other [facility] Other 09-12-2021 16:30-0500 Systolic blood pressure 120 mm[Hg] Nicho Mast Other [facility] Other Encounters Encounter Date Encounter Type Care Provider Facility Start: 08-09-2024 End: 08-09-2024 Vincent HUANG Work Phone: [facility] Start: 08-09-2024 End: 08-09-2024 Bamboo flowsheet Zainab HUANG Work Phone: [facility] Start: 08-09-2024 End: 08-09-2024 Patient encounter procedure Zainab HUANG Work Phone: [facility] Work Phone: Start: 08-09-2024 End: 08-09-2024 Periodic preventive med est patient 40-64yrs Zainab HUANG Work Phone: [facility] Comment on above: Well woman exam with routine gynecological exam; Breast cancer screening by mammogram Start: 10-06-2023 End: 10-06-2023 ambulatory Nicho Mast Other [employer] Other Start: 10-06-2023 Office outpatient vi sit 15 minutes Nicho Mast [facility] Start: 09-11-2023 End: 09-11-2023 ambulatory Nicho Mast Other [employer] Other Start: 09-11-2023 Telephone encounter Nicho Mast [facility] Start: 08-25-2023 End: 08-25-2023 ambulatory Nicho Mast Other [employer] Other Start: 08-25-2023 Telephone encounter Nicho Mast [facility] Start: 08-04-2023 End: 08-04-2023 ambulatory ZAINAB CHÁVEZ Not Available Start: 12-18-2022 End: 12-19-2022 ambulatory ZAINAB CHÁVEZ . Facility:[facility] Start: 12-09-2022 End: 12-09-2022 ambulatory ZAINAB CHÁVEZ . Facility:[facility] Start: 08-19-2022 End: 08-19-2022 ambulatory Nicho Mast Other [employer] Other Start: 08-19-2022 Telephone encounter Nicho Mast [facility] Start: 09-17-2021 End: 09-17-2021 ambulatory Nicho Mast Other [employer] Other Start: 09-17-2021 Office outpatient vi sit 10 minutes Nicho Mast [facility] Start: 09-12-2021 End: 09-12-2021 ambulatory Nicho Mast Other [facility] [employer] Other Start: 09-12-2021 Office outpatient vi sit 15 minutes Nicho Mast [facility] Procedures Date Procedure Procedure Detail Performing Clinician Start: 07-09-2024 Mammography Zainab HUANG Work Phone: Start: 12-09-2022 Microscopic observat ion [Identifier] in Cervix by Cyto stain Zainab HUANG Work Phone: Plan of Treatment Date Care Activity Detail Author Start: 12-10-2027 Screening for malignant neoplasm of cervix [facility] Start: 08-15-2025 End: 08-15-2025 Patient encounter procedure 08/15/2025 9:00 AM EST Office Visit [facility] [address] [place] [address] Zainab Chávez PA [address] [place] [address] [address] [place], [place] [address] [facility] Start: 07-09-2025 Screening for malignant neoplasm of breast Mammogram [facility] Start: 08-09-2024 End: 10-10-2025 MG Breast - bilateral Screening Bilateral screening mammogram Imaging Routine Breast cancer screening by mammogram Expected: 08/09/2024 (Approximate), Expires: 10/10/2025 [facility] Work Phone: Comment on above: Expected: 08/09/2024 (Approximate), Expires: 10/10/2025 Start: 08-09-2024 End: 08-09-2024 Patient encounter procedure 08/09/2024 9:00 AM EST Office Visit [facility] [address] [place] [address] Zainab Chávez PA [address] [place] [address] Ar[address] [facility] Comment on above: Arrived Start: 05-09-2024 Influenza vaccination Influenza Vacc ine (#1) [facility] THIN PREP TIS PAP AN D HR HPV DNA THIN PREP TIS PAP AND HR HPV DNA Pathology and Cytology Routine Well woman exam with routine gynecological exam Ordered: 08/09/2024 [facility] Comment on above: Ordered: 08/09/2024 Immunizations Immunization Date Immunization Notes Care Provider Fa cility 01-12-2021 COVID-19 Vaccine Pfi zer - Documentation Purposes Only Nicho Mast Other [employer] Other 12-22-2020 COVID-19 Vaccine Pfi zer - Documentation Purposes Only Nicho Mast Other [employer] Other 06-08-2020 influenza, injectabl e, quadrivalent, preservative free Nicho Mast Other [employer] Other 06-08-2020 influenza virus vaccine, unspecified formulation Zainab HUANG Work Phone: [facility] 07-10-2018 influenza, seasonal, injectable Nicho Mast Other [employer] Other Payers Date Payer Category Payer Private Health Insurance GENERIC [employer]ERCIAL [id number] 2021 [facility] [id number] 1980 Unknown [id number] 1980 Unknown [id number] 1980 Unknown [id number] 1959 [facility] [id number] 1959 Unknown [id number] Unknown [id number] Social History Date Type Detail Facility Unknown if ever smoked [facility] Other Start: 07-30-2023 End: 08-09-2024 Sex Assigned At [facility] Start: 05-10-2023 Tobacco smoking stat [facility] Never smoked tobacco [facility] Start: 05-10-2023 Tobacco use and exposure Smokeless tobacco non-user [facility] Start: 08-04-2023 End: 08-09-2024 Alcoholic beverage intake Current drinker of alcohol (finding) [facility] Start: 07-30-2023 End: 08-09-2024 History of Social function [facility] How often to you hav e a drink containing alcohol? 2-4 times a month [facility] How many standard drinks containing alcohol do you have on a typical day? 1 or 2 [facility] How often do you hav e 6 or more drinks on 1 occasion? Never [facility] Start: 05-10-2023 Alcohol Comment Alcohol: 1 or 2 drinks on a typical day / 2 to 4 times a month. Caffeine: more than 4 cups per day [facility] Start: 1980 Sex assigned at Not on file [facility] History of Present illness Narrative 08-09-2024 REINA Mcclendon - 08/09/2024 9:00 AM EST Note Date & Type Note Facility 08-09-2024 History of Presen t illness Narrative Reason for Appointment: Patient ID: Dara Concepcion is a 43 y.o. female who presents for Well Women Visit Patient presents today for Annual Exam. MEDICATIONS Current Outpatient Medications Medication Instructions fluticasone (Flonase Allergy Relief) 50 MCG/ACT nasal spray Every 24 hours ibuprofen 800 mg, Oral, Every 8 hours lisinopril-hydroCHLOROthiazide 10-12.5 MG tablet Every 24 hours ALLERGIES Allergies Allergen Reactions Azithromycin Hives and Unknown Cefaclor Hives PROBLEMS Active Ambulatory Problems Diagnosis Date Noted Chronic otitis externa 02/04/2023 Conductive hearing loss of left ear 02/04/2023 Menorrhagia with irregular cycle 02/04/2023 Resolved Ambulatory Problems Diagnosis Date Noted No Resolved Ambulatory Problems Past Medical History: Diagnosis Date History of medical problems 2006 [address]pert[address] ([facility] HISTORY PAST MEDICAL HISTORY SOCIAL HISTORY Past Medical History: Diagnosis Date History of medical problems 2006 Toxemia Hypertension ([facility]) Social History Tobacco Use Smoking status: Never Smokeless tobacco: Never Substance Use Topics Alcohol use: Yes Comment: Alcohol: 1 or 2 drinks on a typical day / 2 to 4 times a month. Caffeine: more than 4 cups per day Drug use: Never FAMILY HISTORY Family History Problem Relation Name Age of Onset Hypertension Mother Asthma Mother Hypertension Father SURGICAL HISTORY Past Surgical History: Procedure Laterality Date ENDOMETRIAL ABLATION 2013 PAP SMEAR 12/09/2022 negative TOTAL VAGINAL HYSTERECTOMY 06/19/2023 WISDOM TOOTH EXTRACTION REVIEW OF SYSTEMS Review of Systems: Review of Systems Constitutional: Negative. HENT: Negative. Eyes: Negative. Respiratory: Negative. Cardiovascular: Negative. Gastrointestinal: Negative. Genitourinary: Negative. Musculoskeletal: Negative. Skin: Negative. Neurological: Negative. All other systems reviewed and are negative. Hematological: Negative. Endocrine: Negative. Allergic/Immunologic: Negative. OBJECTIVE Objective: Physical Exam Constitutional: Appearance: Normal appearance. Genitourinary: Right Adnexa: not tender and no mass present. Left Adnexa: not tender and no mass present. No cervical discharge. Breasts: Breasts are soft. Right: Normal. Left: Normal. HENT: Head: Normocephalic. Nose: Nose normal. Mouth/Throat: Mouth: Mucous membranes are moist. Cardiovascular: Rate and Rhythm: Normal rate. Pulmonary: Effort: Pulmonary effort is normal. Abdominal: General: Bowel sounds are normal. Palpations: Abdomen is soft. Musculoskeletal: General: Normal range of motion. Cervical back: Normal range of motion. Neurological: General: No focal deficit present. Mental Status: She is alert. Skin: General: Skin is warm and dry. Psychiatric: Mood and Affect: Mood normal. Vitals and nursing note reviewed. Exam conducted with a inspector general present. Vitals: Estimated body mass index is 37.44 kg/m as calculated from the following: Height as of this encounter: 5' 5 . Weight as of this encounter: 225 lb. BP: 108/70 No LMP recorded (lmp unknown). Patient has had a hysterectomy. ASSESSMENT & PLAN ICD-10-CM 1. Well woman exam with routine gynecological exam Z01.419 THIN PREP TIS PAP AND HR HPV DNA 2. Breast cancer screening by mammogram Z12.31 Bilateral screening mammogram Bilateral screening mammogram Annual Exam: Patient presents today for an annual exam. Patient states she is doing well and has no complaints. Pap was obtained without difficulty. Orders Placed This Encounter Procedures Bilateral screening mammogram Follow Up: Patient is to return in one year for annual unless needed otherwise. Documented by REINA Mcclendon on behalf of: REINA Mcclendon documented in this encounter [facility] Evaluation note 10-06-2023 Note Date & Type Note Facility 10-06-2023 Evaluation note Encounter Date Diagnosis Assessment Notes Sep, Hypertension, essential (ICD-10 - I10) BP controlled, continue Rx. We will review her preoperative labs from [facility]. Work on weight loss. Recheck in a year, sooner if problems [facility] [employer] Other History general Narrative - Reported 06-19-2023 Note Date & Type Note Facility 06-19-2023 History general N arrative - Reported Type Medical History Hypertension Surgical History essure sterilization procedure 12/19 Surgical History Hysterectomy 06/19/23 Hospitalization History No Hospitalizati on history information [facility] Other Evaluation note 09-17-2021 Note Date & Type Note Facility 09-17-2021 Evaluation note Encounter Date Diagnosis Assessment Notes Sep, Exposure to COVID-19 virus (ICD-10 - Z20.822) COVID test is negative. Continue supportive care, warning signs reviewed. She is fully vaccinated so she was advised that she may return to work as long as she wears a mask. Call if problems arise. [facility] Other Evaluation note 09-12-2021 Note Date & Type Note Facility 09-12-2021 Evaluation note Encounter Date Diagnosis Assessment Notes Sep, Cough (ICD-10 - R05.9) Her exam is unremarkable, lungs are completely clear. I do not hear any forced expiratory wheezing. She admits some generalized malaise with the cough, discussed possible viral etiology. I offered to test her again for Covid and also influenza, but she declined and I think that is reasonable since she tested negative chest yesterday. I will send an Rx for Edgar Patel. Discussed possibility of lisinopril induced cough, but that seems much less likely given her fatigue and malaise. Try Mucinex as well. Supportive care, warning signs reviewed. Contact me if not improved in the next few days, call with problems. [employer] Other Evaluation note Note Date & Type Note Facility Evaluation note No Information [employer] Other Evaluation note Note Date & Type Note Facility Evaluation note Diagnosis Well woman exam with routine gynecological exam Routine gynecological examination Breast cancer screening by mammogram documented in this encounter [facility] History general Narrative - Reported Note Date & Type Note Facility History general Narrative - Reported Type Medical History Hypertension Surgical History essure sterilization procedure 12/19 Hospitalization History No Hospitalization histo ry information [facility] Other Summary Purpose Family History No Family History Records FoundNo Family History Records FoundNo Family History Records Found Advance Directives No Advanced Directives Records FoundNo Advanced Directives Records FoundNo Advanced Directives Records Found Additional Source Comments INFORMATION SOURCE (unrecogn ized section and content) DATE CREATED AUTHOR 10/13/2021 [facility] DATE CREATED AUTHOR AUTHOR'S ORGANIZ ATION 12/23/2022 [facility] DATE CREATED AUTHOR AUTHOR'S ORGANIZ ATION 08/04/2023 [facility] EPIC REASON FOR VISIT (unrecogniz ed section and content) Reason Comments Well Women Visit Care Teams (unrecognized sec tion and content) 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 [place] [address] PCP - General 02/05/23 FOR RECORDS PERTAINING TO PATIENTS WHO ARE OR HAVE BEEN ENROLLED IN A CHEMICAL DEPENDENCY/SUBSTANCEABUSE PROGRAM, SOME INFORMATION MAY BE OMITTED. This clinical summary was aggregated from multiple sources. Caution should be exercised in using it in the provision of clinical care. This summary normalizes information from multiple sources, and as a consequence, information in this document may materially change the coding, format and clinical context of patient data. In addition, data may be omitted in some cases. CLINICAL DECISIONS SHOULD BE BASED ON THE PRIMARY CLINICAL RECORDS. [facility]. provides no warranty or guarantee of the accuracy or completeness of information in this document.
== END 2024-08-09 20:25 | disposition home or self-care (01) ==
LOC: LAB 20:24
PROVIDERS: PCP Family Medicine; Visit Provider Physician Assistant
DX: Z01.419 Encounter for gynecological examination (general) (routine) without abnormal findings (principal)
CPT/HCPCS: 87624; 88175

== ENCOUNTER 2025-08-01 13:08 | Outpatient (OUT) | payer BC, OTHER, SELFPAY ==
--- OUTSIDE RECORDS SUMMARY | 2025-07-26 08:40 | XMS_ITS | Continuity of Care Document ---
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 Role Phone Miranda Jordon Singh DO Primary Care Provider Jordon Jean DO Attending Provider Luke Stone APRN Attending Provider Care Teams Patient Care Team Team Status: Active Member Role/Relationship Status Dates Jordon Jean DO Primary Care Provider Active Visit Care Team Team Status: Inactive Member Role/Relationship Status Dates Jordon Jean DO Primary Care Provider Active Start: June 23, 2025 End: June 23, 2025Jordon Jean DOAttending ProviderActiveStart: June 23, 2025 End: June 23, 2025 Visit Care Team Team Status: Inactive Member Role/Relationship Status Dates Jordon Jean DO Primary Care Provider Active Start: July 08, 2025 End: July 08, 2025Jordon Jean DOAttending ProviderActiveStart: July 08, 2025 End: July 08, 2025 Patient Care Team Team Status: Inactive Member Role/Relationship Status Dates Jordon Jean DO Primary Care Provider Active Start: July 26, 2025 End: July 26, 2025Jamil Vogel ProviderActiveStart: July 26, 2025 End: July 26, 2025 Chief Complaint and Reason for Visit Chief Complaint Admit Date AWV June 23, 2025 8 :29am I10 Z00.00 Z13.6 July 08, 2025 9 :09am BP check July 26, 2025 12:56pm Reason for Visit Admit Date Primary hypertension June 23, 2025 8:29am Impaired concentration June 23 8:29am Encounter for routine histor y and physical examination of adult June 23, 2025 8:29am Primary hypertension July 26, 2025 12:56pm Vertigo July 26, 2025 12:56pm Allergies, Adverse Reactions, Alerts Allergen Type Severity Reaction Last Updated Verified Status azithromycin Allergy Unknown Hives June 23, 2025 7:32am Y es Active cefaclor Allergy Unknown Hives June 23, 2025 7:32am Yes Active Social History Smoking Status Status Start Date End Date Date of Observa tion Never smoked tobacco (finding) June 23, 2025 7:19am Observation Status Observation Response Date of Response Legal Sex Female (finding) [facility] 1980Gender IdentityCisgender/Not transgender (finding)June 23isgender/Not transgender (finding) June 23isgender/Not transgender (finding)June 23, 2025Sexual OrientationUnknownUnknownUnknown Family History Relationship Condition Age at Onset Recorded Date/T payal father Hypertension Unknown grandparentDeceasedUnknowngrandparentDeceasedUnknownDiabetes mellitusUnknown grandparentDeceasedUnknowngrandparentDeceasedUnknownmotherHypertensionUnknown Problems Active Problems Problem Diagnosis/Recorded Date Onset Date Status C omments Primary hypertension June 10, 2024 2:18pm Unknown A ctive Inactive/Resolved Problems Problem Diagnosis/Recorded Date Onset Date Status C omments Otitis externa September 06, 2021 8:57am Unknown Resol marti Problem List clean-up per request of Phys. EHR Cmte Medications Medication Status Dose Units Route Directions Qty Days Refills S tart Date Stop Date End Date Reason(s) Instructions Adherence Lisinopril-Hydrochlorothiazide 10-12.5 mg tablet Discontinued 1 TAB PO Daily 90 3March 2023 6:04amJune 2023 11:04amAtorvastatin 20 mg tablet Wsbzztisfdbp59JVQHTdkpm445Lprhp 2023 11:00pmOctober 2023 2:03pm Lisinopril-Hydrochlorothiazide 10-12.5 mg gafexxUlzsdqzpsemj2UIHRFScpns007Istz 2023 11:04amMarch 2024 10:27amFluocinolone Acetonide Oil 0.01 % vswllRvjobn5GUBDZIVC-ZOZKPxpvl qnnet003Kwpohui 4th, 2024 12:03pmComplies with drug therapyLisinopril-Hydrochlorothiazide 10-12.5 mg klidckKleirquyjzsf6OHVXM Yoiwk517Dpoag 2024 10:27amAugust 2024 3:30pmLisinopril- Hydrochlorothiazide 10-12.5 mg lhmrliBrpixl9SHWCYRhsjt776Piuagl 2024 3:30pmComplies with drug therapyLisinopril-Hydrochlorothiazide 10-12.5 mg tablet Huzgqujtulcv5EJNMQXcvzzYqjhaqci 2020 12:00amMarch 2023 6:04am Ciprofloxacin Hcl 500 mg euloynEcnobftdrlrk431ZBJLDrosp cqbyc97726Mdwsjedy 2020 12:00amOctober 2023 2:04pmMay increase tendon rupture. Avoid strenuous activity. Not safe in .Prednisone 20 mg hfrtjbSmfuogmdzhus54WDDLNdoat31 0December 2020 12:00amOctober 2023 2:04pmIbuprofen 800 mg tablet Sjzphdkxmhzu111BJKMNwujv times daily as needed for fever or gygv829Rynwpwqi 2020 12:00amOctober 2023 2:04pmPolymyxin B Sulf-Trimethoprim 10,000 unit- 1 mg/mL zkkfrJiyijvtohvyb7LEBUMUTU-PHVZBuqj times ziqrt258Ayzzkxo 2024 12:00amMarch 2024 2:29pmPrednisolone Acetate 1 % drops,suspension ActiveDROPSOPHTHALMICMarch 2024 11:00pmComplies with drug therapyMeclizine 12.5 mg gapnypQpxzrw65.5MGPOTwice daily as needed for vkjayet952Qydujdxl 2024 12:00amVertigo Dizziness and giddinessComplies with drug therapyFluocinolone Acetonide Oil 0.01 % xmrdoPazeqhrtablb1BHRIWYVH-KODNOqylw dailyOctober 2023 11:00pmOctober 2023 12:03pmTriamcinolone Acetonide 0.025 % bhejrbauVdxdcl2TUUAPTYFJLKEV Twice ddkfi94282Pvdo 2024 11:00pmUrticaria Rash of neck Urticaria, unspecified Rash and other nonspecific skin eruptionComplies with drug therapyBupropion Hcl (Wellbutrin Xl) 150 mg tablet extended release 24 aiXocxuh725ELDOSvwxq ulygetr12 2October 2024 11:00pmImpaired concentration Attention and concentration deficitComplies with drug therapy Immunizations Immunization Event Date Not Given Reason Dose Number Tank [employer] Hel[employer] Lot Number Reason(s) Given Vaccine Information Statement (VIS) Detail Administration Location COVID-19 mRNA, Comirnat (Sapheneia) December 22 [facility]January 12, 2021Quadrivalent InfluenzaOctober 2019Trivalent Influenza VaccineNovember 2017 Relevant Diagnostic Tests and/or Laboratory Data Laboratory Results Test Collection Date/Time Result Date/Time Result Interpretation Reference Range Result Comment Performing Site Corrected White Blood Count July 08, 2025 8:49am July 08, 2025 12:57pm 5.5 10*3/uL 3.8[facility]11.6[facility] [id number] [address] [place] [address] 32223Vcnyfchfszb WBC CountOctober 2024 8:49amOctober 2024 12:57pm5.5 10*3/uL3.8-11.6FF[facility] [id number] [address] [facility] [address]Svb Blood CountOctober 2024 8:49amOctober 2024 12:57pm4.83 10*6/uL3.60-5.00[facility] [id number] [address] [facility] 50804QcjljwpxxpSlfqbfb 2024 8:49amOctober 2024 12:57pm 14.7 g/dL11.8-15.4FF[facility] [id number] [address] [facility] 21152RfeprqxgyrZhctfli 2024 8:49amOctober 2024 12:57pm 42.8 %34.0-46.4FF[facility] [id number] [address] [facility] 91362Gfnh Corpuscular VolumeOctober 2024 8:49amOctober 2024 12:57pm88.7 dQ56-496CjdecrrkzZanesville City Hospital [facility]tr [id number] [address] [facility] 70724Lyil Corpuscular HemoglobinOctober 2024 8:49amOctober 2024 12:57pm30.4 pg24.7-34.3FFostoria [facility] [id number] [address] [facility] 80387Ddxn Corpuscular Hemoglobin ConcentOctober 2024 8:49am July 08, 2025 12:57pm34.3 g/dL32.0-35.0[facility] [id number] [address] [place] [address] 40462Qyu Cell Distribution WidthOctober 2024 8:49amOctober 2024 12:57pm13.2 %11.9-15.3FF[facility] [id number] [address] [place] [address] 58771Amapzqtu CountOctober 2024 8:49amOctober 2024 12:99wa770 10*3/uE473-989VduqwyjfpZanesville City Hospital Ctr [id number] [address] [place] [address] 27610Favk Platelet VolumeOctober 2024 8:49amOctober 2024 12:57pm8.3 fL6.3-10.7FFost[facility] [id number] [address] [facility] 06884Jmrkuvzdjov (%) (Auto)July 08, 2025 8:49amOctober 2024 12:57pm67.6 %.[facility] [id number] [address] [facility] 15336Yuuljgcfiol (%) (Auto)July 08, 2025 8:49amOctober 2024 12:57pm25.3 %.[facility] [id number] [address] [facility] 72326Rdsuppjmp (%) (Auto)July 08, 2025 8:49amOctober 2024 12:57pm4.0 %.[facility] [id number] [address] [facility] 00525Tndvasumrnu (%) (Auto)July 08, 2025 8:49amOctober 2024 12:57pm2.5 %.[facility] [id number] [address] [facility] 06384Zzifdfobb (%) (Auto)July 08, 2025 8:49amOctober 2024 12:57pm0.6 %.[facility] [id number] [address] [facility] 27567Huiixlicz RBC Relative Count (auto)July 08, 2025 8:49am July 08, 2025 12:57pm0.1 /100{WBC}0-0.5FF[facility] [id number] [address] [place] [address] 16978Djxgspnoyol # (Auto)July 08, 2025 8:49amOctober 2024 12:57pm3.7 10*3/uL1.8-7.7FF[facility] [id number] [address] [place] [address] 33238Jqxwywyqexb # (Auto)July 08, 2025 8:49amOctober 2024 12:57pm1.4 10*3/uL1.00-4.8[facility] [id number] [address] [facility] 35858Novtjuxoc # (Auto)July 08, 2025 8:49amOctober 2024 12:57pm0.2 10*3/uL0.0-0.8[facility] [id number] [address] [place] [address] 29205Kvoxiwljvct # (Auto)July 08, 2025 8:49amOctober 2024 12:57pm0.1 10*3/uL0.0-0.45[facility] [id number] [address] [place], [place] [address]33870Basophils # (Auto)July 08, 2025 8:49amOctober 2024 12:57pm0.0 10*3/uL0.0-0.2FF[facility] [id number] [address] [place], [place] [address]338[address]Glucose LevelOctober 2024 8:49amOctober 2024 1:46pm 87 mg/uD50-187LmkpkgmkjZanesville City Hospital Ctr [id number] [address] [place], [place] [address]Blood Urea NitrogenOctober 2024 8:49amOctober 2024 1:46pm9 mg/dL7-25[facility] [id number] [address] [place], [place] [address]CreatinineOctober 2024 8:49amOctober 2024 1:46pm 0.82 mg/dL0.60-1.20[facility] [id number] [address] [place], [place] [address]Estimated GFR (CKD-EPI)July 08, 2025 8:49amOctober 2024 1:46pm> 60.0 mL/MinZanesville City Hospital Ctr [id number] [address] [place], [place] [address]Sodium LevelOctober 2024 8:49amOctober 2024 1:46pm 137 mmol/S623-346CejfexaszZanesville City Hospital Ctr [id number] [address] [place], [place] [address]Potassium LevelOctober 2024 8:49amOctober 2024 1:46pm4.5 mmol/L3.5-5.1Hemolysis is present at a level that could interfere with the result.Contact lab if redraw is requiredZanesville City Hospital Ctr [id number] [address] [place] [address] 84421Hnxjvjbk LevelOctober 2024 8:49amOctober 2024 1:78hg150 mmol/S94-704HnpomtdarZanesville City Hospital Ctr [id number] [address] [place], [place] [address]Carbon Dioxide LevelOctober 2024 8:49amOctober 2024 1:46pm28.3 mmol/L21.0-31.0[facility] [id number] [address] [place] [address] 52699Rhlbr GapOctober 2024 8:49amOctober 2024 1:46pm9.2 mEq/L6.0-15.0[facility] [id number] [address] [place] [address] 16854Cyuosjo LevelOctober 2024 8:49amOctober 2024 1:46pm 10.3 mg/dL8.6-10.3FFostoria City Hospital [facility] [id number] [address] [place] [address] 73237Oaxte ProteinOctober 2024 8:49amOctober 2024 1:46pm 6.9 g/dL6.4-8.9[facility] [id number] [address] [place] [address] 22852NrwukjfHssinks 2024 8:49amOctober 2024 1:46pm4.2 g/dL3.5-5.7FFost[facility] [id number] [address] [place] [address] 60170DdxgbhazWtakyqs 2024 8:49amOctober 2024 1:46pm2.7 g/dLZanesville City Hospital Ctr [id number] [address] [place] [address] 68190Zhykoew/Globulin RatioOctober 2024 8:49amOctober 2024 1:46pm1.6FFost[facility] [id number] [address] [place] [address] 35101Jtpry BilirubinOctober 2024 8:49amOctober 2024 1:46pm0.6 mg/dL0.3-1.0[facility] [id number] [address] [place] [address] 28301Oqkahxdqt Amino Transf (AST/SGOT)July 08, 2025 8:49am July 08, 2025 1:46pm16 U/J92-71DslqkgvyqZanesville City Hospital Ctr [id number] [address] [place] [address] 29993Hvpvkjl Aminotransferase (ALT/SGPT)July 08, 2025 8:49am July 08, 2025 1:46pm17 U/L7-52[facility] [id number] [address] [facility] 38673Yvmmjcol PhosphataseOctober 2024 8:49amOctober 2024 1:46pm94 U/H38-044KwyxwetnlZanesville City Hospital Ctr [id number] [address] [facility] 640[address]Buowtdzlomi LevelOctober 2024 8:49amOctober 2024 1:96wp557 mg/mU406-331Vxsh less than 200 mg/dl low riskChol 201-239 mg/dl borderline riskChol 240 mg/dl and greater high riskZanesville City Hospital Ctr [id number] [address] [facility] 54165YMA CholesterolOctober 2024 8:49amOctober 2024 1:46pm53 mg/zQ73-49PAF CHOL ATP-III CLASSIFICATION Cardiovascular RiskHDL > or equal to 60 mg/dL LOWHDL < 40 mg/dL HIGHZanesville City Hospital Ctr [id number] [address] [facility] 66680Kmsgohyysanlo LevelOctober 2024 8:49amOctober 2024 1:85cf388 mg/dLAbove high normal0-149TRIG ATP III CLASSIFICATIONTRIG less than 150 mg/dL NormalTRIG 150-199 mg/dL Borderline highTRIG 200-500 mg/dL High TRIG greater than 500 mg/dL Very highStandard traceable to the Center for Disease Co nrtrol and Prevention (CDC) test method.[facility] [id number] [address] [facility] 66071VXQ Cholesterol, CalculatedOctober 2024 8:49amOctober 2024 1:04jq849 mg/dL0-100LDL ATP III CLASSIFICATIONLDL less than 100 mg/dL OptimalLDL 100-129 mg/dL Near or above auhjoumTXE527-840 mg/dL Borderline highLDL 160-189 mg/dL HighLDL greater than 189 mg/dL Very highZanesville City Hospital Ctr [id number] [address] [facility] 99084KJLX CholesterolOctober 2024 8:49amOctober 2024 1:46pm34 mg/dLZanesville City Hospital Ctr [id number] [address] [facility] 71840Saglrjfsagr/HDL RatioAscension Borgess-[facility]ipp [facility] 2024 8:49amOctkindred hospital [facility] 2024 1:46pm3.5<5.0[facility] [id number] [address] [facility] 18123Yxmfccet Creatinine Clearance (ChemOctkindred hospital [facility] 2024 8:49am July 08, 2025 1:46pmN/AFFostoria City Hospital Ctr [id number] [address] [facility] [address] Vital Signs Vital Reading Result Reference Range Collection Date/Time Height 65 [in_i] June 23, 2025 7:69kaXugolz019.96 kgAscension Borgess-[facility]ipp Hospital 2024 7:41amHeart Rate91 /goi37-519Ncclamy 2024 7:41amOxygen saturation by Pulse utziwvlq81 %95-100 June 23, 2025 7:41amBP Kvobuzgb282 mm[Hg]100-140[facility] 2024 7:41amBP Ovggdvgcz83 mm[Hg]60-100[facility] 2024 7:41amBMI (Body Mass Index)37.8 kg/s4Wkhfnjq 2024 7:16vsPbphso10 [in_i]July 26, 2025 1:04pmWeight 100.24 kgWilliamson Arh Hospital 2024 1:04pmBody Ivhwqsbejyu04.8 [degF]97.6-99.0[facility] 2024 1:04pmHeart Gwtk221 /oax31-179Qbetzcal 2024 1:04pmRespiratory rate18 /ofg84-13Lbfzskyx 2024 1:04pmOxygen saturation by Pulse fagqosom36 %95-100[facility] 2024 1:04pmBP Wkjughcz368 mm[Hg]100-140[facility] 2024 1:25pmBP Lixojqctr86 mm[Hg]60-100[facility] 2024 1:25pmBMI (Body Mass Index)36.8 kg/x2Bqrvyatt 2024 1:04pm Advance Directives Advance Directive Response Recorded Date/ Time Advance Directives No July 10, 2021 12:41pm Insurance Providers Guarantor Dara A Jamey Address [address] [place] [address]Czuzcvl Info.Home Phone: Coverage Status Update:2025 Payer Group Member ID Coverage Type Subscriber Relationship to Subscriber Effective Date Expiration Date Jose Cruz FU/JOSE LUIS [employer] Id: [id number] A Jamey Id: [id number] [address] [place] [address] Home Phone: Email: [email or web address] Insurance [address] [facility] [address] Work Phone: Id: [id number] A Jamey Id: [id number] [address] [place] [address] Home Phone: Email: [email or web address] Insurance Co Id: [id number] J Krawczyk , Jr Id: [id number] [address] [facility] [address] Home Phone: Email: [email or web address] Encounters Encounter Location(s) Arrival/Admit Date Discharge/Departure Date Discharge/Departure Disposition Provider(s) Departed Physician/ Provider Office Visit -[facility] June 23, 2025 8:29am June 23, 2025 9:06am Discharged to home care or self care (routine discharge) Jordon Jean DO Departed Clinical -Lab [facility] July 08, 2025 9:09am July 08, 2025 9:10am Discharged to home care or self care (routine discharge) Jordon Jean DO Departed Physician/ Provider Office Visit -[facility] July 26, 2025 12:56pm July 26, 2025 1:38pm Discharged to home care or self care (routine discharge) Luke Kahlil Binks , COURT REPORTER Recent Diagnosis Onset Date Admit Date Primary hypertension Unknown June 8:29am Impaired concentration Unknown June 082024 8:29am Encounter for routine histor y and physical examination of adult Unknown June 23, 2025 8:29am Primary hypertension Unknown July 262024 12:56pm Vertigo Unknown July 26, 2 025 12:56pm Assessments Diagnosis Onset Date Resolution Status Admit Date Primary hypertension chronicOctober 2024 8:29amImpaired concentrationnoneactiveOctkindred hospital [facility] 2024 8:29amEncounter for routine history and physical examination of adult noneactiveOctober 2024 8:29amPrimary hypertensionchronicNovbanner desert medical center 2024 12:56pmVertigononeactiveWilliamson Arh Hospital 2024 12:56pm Plan of Treatment Author Luke Stone [facility] 2024 1:39pm44 y.o. female presents to the office with concerns for an episode of vertigo for elevated blood pressure readings at home. She is currently on Lisinopril HCTZ 10-12.5mg orally daily for hypertension. She reports compliance with this medication and denies any side effects. Today in the office her blood pressure is Author Jordon Jean [facility] 2024 8:33nq35-snrs-scq female who has a chronic medical condition of high blood pressure that is well-controlled on her current medication regimen. She is also dealing with a lot of difficulty concentrating and has been for a long time but now in the last couple years has really started to struggle at work and at home. Because of this and her sleeping difficulty due to not being able to turn her mind off I would recommend Wellbutrin XL 150 mg daily. I recommended taking in the evening time. Potential side effects was discussed with her. She will follow-up in 6 to 8 weeks for reassessment. She is to call right away if she has any problems with the medicine. She is otherwise doing well and is up-to-date on screening testing except for screening blood work which was ordered for today. Future Tests Future scheduled test information is unavailable Pending Tests Pending diagnostic test information is unavailable Future Visits Future appointment information is unavailable Future Procedures Future procedure information is unavailable Future Medications Future medication information is unavailable Patient Instructions Patient instructions are unavailable
--- NOTE | 2025-08-01 13:11 | MM_ITS ---
Patient Name: CHRIS CRAWFORD MR#: [id number] : 1980 Exam Date: 08/01/2025 Ordering Doctor: REINA CHÁVEZ . RADIOLOGY REPORT PROCEDURE: MM TOMOSYNTHESIS SCREENING BI COMPARISON: MM TOMOSYNTHESIS SCREENING BI, 07/09/2024. MG MAMM SCREEN 3D JOE CAD, 12/18/2022. INDICATIONS: Screening Calculator Name NCI Breast Cancer Risk Assessment Tool 5 Year Breast Cancer Risk 0.70% Lifetime Breast Cancer Risk 8.70% Personal Breast Cancer No Personal Ovarian Cancer No Treatments None Family Cancers None LOCATION: [facility] BREAST COMPOSITION: There are scattered areas of fibroglandular density. FINDINGS: DIAGNOSTIC CATEGORY 1--NEGATIVE. RIGHT BREAST: No significant suspicious finding. LEFT BREAST: No significant suspicious finding. RECOMMENDATIONS: ROUTINE MAMMOGRAM AND CLINICAL EVALUATION IN 12 MONTHS. Dictated by: Juan J Chávez DO on 08/01/2025 at 15:10 Approved by: Juan J Chávez DO on 08/01/2025 at 15:21
--- OUTSIDE RECORDS SUMMARY | 2025-08-01 13:13 | XMS_ITS | CCD ---
Author Organization [facility] CliniSynm Care Team Providers Care Induction Heat Treater Name Role Phone Mast, Nicho Unavailable SAIRA ., ZAINAB Admitting Unavailable SAIRA ., ZAINAB Attending Unavailable SAIRA ., ZAINAB Consulting Unavailable SAIRA ., ZAINAB Admitting Unavailable SAIRA ., ZAINAB Attending Unavailable DR BRYON EUGENE Consulting Unavailable SAIRA ., ZAINAB Consulting Unavailable Anay Peacock Consulting Unavailable Mast , Nicho E Primary Care Provider [phone] ZAINAB CHÁVEZ Attending Unavailable Mast DO, Nicho Primary Care Provider [phone] Mast DO, Nicho Attending Provider Mast DO, Nicho Primary Care Provider Luke Stone APRN Attending Provider Jordon Jean DO Primary Care Provider Miranda DOJordon Attending Provider [phone] Mast DO, Nicho E Primary Care Provider Mast, Nicho Primary Care Unavailable Mast, Nicho Attending Unavailable Mast, Nicho Admitting Unavailable Mast, Nicho Primary Care Unavailable Luke Stone Admitting Unavailable Luke Stone Attending Unavailable Jordon Jean Admitting Unavailable Jordon Jean Primary Care Unavailable Jordon Jean Attending Unavailable Allergies Allergy ClassificationReported Allergen(s)Allergy TypeDate of OnsetReaction(s) Facility (16 sources)AzithromycinDrug Qvcdmmq80-32-0868Zjuft, UnknownNOMS Healthcare Work Phone: (7 sources)Cefaclor; Translations: [Ceclor]Drug Cxvbzro17-62-2612AzlvqquLfx [facility] Repository (1 source)AzithromycinDrug Rpwhipw54-50-3174[facility] (10 sources)CefaclorDrug Ohhhhdn29-79-7958UmoseVYLL Healthcare (1 source)AzithromycinDrug Oheebfy64-86-3175EerfzhvjwD[facility] Repository (1 source)CefaclorDrug Ywzjgly65-28-4138AtrbmxsmsDiley Ridge Medical Center Repository Medications Current Medications MedicationDrug Class(es)DatesSig (Normalized)Sig (Original)24 hr buPROPion hydrochloride 150 mg extended release oral tablet (2 sources)AminoketoneStart: 31-19-0638ftna 1 tablet by mouth once daily in the morningfluocinolone acetonide 0.1 mg/ml otic solution (10 sources)CorticosteroidStart: 06-10-2024 End: 77-58-6425nijopiixxbh propionate 0.05 mg/actuat metered dose nasal spray (5 sources)Corticosteroidfluticasone (Flonase Allergy Relief) 50 MCG/ACT nasal spray 1 (one) time each day at the same time.Activeibuprofen 800 mg oral tablet (10 sources)Nonsteroidal Anti-inflammatory DrugStart: 92-94-2557nczz 1 tablet by mouth every eight hoursibuprofen 800 MG tablet Take 800 mg by mouth every 8 (eight) hours. 06/20/2023 ActiveStart: 09-06-2021 End: 05-54-1458vbee 1 tablet by mouth three times daily as needed for pain Ibuprofen 800 mg tablet Discontinued 800 MG PO Three times daily as needed for fever or pain 30 September 06, 2021 1:00am June 10, 2024 3:04pm prednisoLONE acetate 10 mg/ml ophthalmic suspension (5 sources)CorticosteroidStart: 74-60-4906Kckmxvpllf-Dexamethasone 0.3-0.05 % (3 sources)take 1 drop(s) into the eye(s) twice dailyTobramycin-Dexamethasone 0.3-0.05 % 1 drop(s) Ophthalmic bid Activetriamcinolone acetonide 0.86064 mg/mg topical ointment (4 sources)CorticosteroidStart: 03-09-2025 Completed/Discontinued Medications MedicationDrug Class(es)DatesSig (Normalized)Sig (Original)atorvastatin 20 mg oral tablet (5 sources)HMG-CoA Reductase InhibitorStart: 11-24-2023 End: 76-67-6743ihgv 1 tablet by mouth once dailyAtorvastatin 20 mg tablet Discontinued 20 MG PO Daily November 24, 2023 12:00am June 10, 2024 3:03pmbenzonatate 100 mg oral capsule (6 sources)Non-narcotic AntitussiveStart: 49-58-2184jhjl 1 capsule by mouth three times daily as neededTessalon Perles 100 MG 1 capsule as needed Orally Three times a day Sep, Not-Taking/PRNciprofloxacin 500 mg oral tablet (11 sources)Quinolone AntimicrobialStart: 09-06-2021 End: 79-58-3177dhcn 1 tablet by mouth twice dailyCiprofloxacin Hcl 500 mg tablet Discontinued 500 MG PO Twice daily September 06, 2021 1:00am June 10, 2024 3:04pm May increase tendon rupture. Avoid strenuous activity. Not safe in .hydroCHLOROthiazide 12.5 mg / lisinopril 10 mg oral tablet (20 sources)Thiazide Diuretic, Angiotensin Converting Enzyme InhibitorStart: 09-06-2021 End: 04-30-5608cbnb 1 tablet by mouth once dailyLisinopril-Hydrochlorothiazide 10-12.5 mg tablet Discontinued 1 TAB PO Daily December 06, 2024 11:27am April 19, 2025 4:30pmhydrOXYzine pamoate 25 mg oral capsule (6 sources)AntihistamineStart: 28-61-6281yoia 1 capsule by mouth every eight hours as neededhydrOXYzine Pamoate 25 MG 1-2 capsule as needed for itching Orally every 8 hrs caution drowsiness Mar, Not-Taking/PRNpolymyxin b 77526 unt/ml / trimethoprim 1 mg/ml ophthalmic solution (5 sources)Dihydrofolate Reductase Inhibitor Antibacterial, Polymyxin-class AntibacterialStart: 10-04-2024 End: 27-00-6550hnpl 1 drop(s) into the eye(s) four times dailyPolymyxin B Sulf- Trimethoprim 10,000 unit- 1 mg/mL drops Discontinued 1 DROPS EYE-BOTH Four times daily October 04, 2024 1:00am November 18, 2024 3:29pmpredniSONE 20 mg oral tablet (5 sources)Start: 09-06-2021 End: 24-07-4757bpuo 1 tablet by mouth once dailyPrednisone 20 mg tablet Discontinued 20 MG PO Daily 4 4 0 September 06, 2021 1:00am June 10, 2024 3:04pmTobramycin-dexAMETHasone 0.3-0.05 % (3 sources)take 1 drop(s) into the eye(s) twice daily as neededTobramycin- dexAMETHasone 0.3-0.05 % 1 drop(s) Ophthalmic bid Not-Taking/PRNtake 1 drop(s) into the eye(s) twice dailyTobramycin-dexAMETHasone 0.3-0.05 % 1 drop(s) Ophthalmic bid Active Problems Active Problems Problem ClassificationProblemDateDocumented DateEpisodic/ChronicEssential hypertension (16 sources)Essential hypertension; Translations: [Essential (primary) hypertension]Onset: 60-37-3746KwqhqwjOswshenrp disorders (9 sources)Excessive and frequent menstruation with irregular cycle; Translations: [Menometrorrhagia]Onset: 91-35-1754HjmmqshZgxxn ear and sense organ disorders (5 sources)Chronic otitis externa; Translations: [Unspecified chronic otitis externa, unspecified ear]Onset: 295125-34-3801FsbupryDobid ear and sense organ disorders (5 sources)Left conductive hearing loss; Translations: [Conductive hearing loss, unilateral, left ear, with unrestricted hearing on the contralateral side] Onset: 296243-39-0332FcbshqiVheei ear and sense organ disorders (5 sources)Otitis externa; Translations: [Unspecified otitis externa, unspecified ear]18-94-1799SncxortGdfsyzd on above:Problem List clean-up per request of Phys. EHR CmteOther ear and sense organ disorders (3 sources)Ear canal finding; Translations: [Other specified disorders of external ear, unspecified ear]73-98-5945UtccmnclAmmlb eye disorders (3 sources)Inflammatory disorder of the eye; Translations: [Other specified disorders of eye and adnexa]06-61-5091JqqdrwcrRibpg eye disorders (1 source)Other specified disorders of eye and adnexa; Translations: [Other ill- defined disorders of eye]49-64-9950PzwktgxxKcgzb nervous system disorders (2 sources)Attention and concentration deficit; Translations: [Impaired concentration]23-75-8245FosavahLrisv skin disorders (1 source)Disorder of skin of neck; Translations: [Rash and other nonspecific skin eruption]89-46-3253YswuhierTnevzho cyst (1 source)Other ovarian cyst, right side; Translations: [OTHER OVARIAN CYST RIGHT SIDE]Onset: 30-51-0443KlfzhemoDduvnjhi codes; unclassified (6 sources)Insomnia; Translations: [Insomnia, unspecified]EpisodicViral infection (6 sources)Plantar wart of right foot; Translations: [Plantar wart]Episodic Past or Other Problems Problem ClassificationProblemDateDocumented DateEpisodic/ChronicAllergic reactions (7 sources)Urticaria; Translations: [Urticaria, unspecified]Onset: 03-09-2025 25-15-2910LrwivlkeTumycmhaexwq; infection of eye (except that caused by tuberculosis or sexually transmitteddisease) (5 sources)Episcleritis; Translations: [Unspecified episcleritis, unspecified eye]Onset: 342937-69-0568FliogfdlReqoj non-traumatic joint disorders (1 source)Pain in unspecified joint; Translations: [Pain in unspecified joint] Onset: 44-11-9710CamktewzHssat screening for suspected conditions (not mental disorders or infectious disease) (5 sources)Encounter for screening mammogram for malignant neoplasm of breast; Translations: [Patient encounter status]Onset: 569977-55-2028OywkhtmlUdgzq skin disorders (1 source)Rash and other nonspecific skin eruption; Translations: [Rash and other nonspecific skin eruption]Onset: 14-19-7648PxayvbutEtlqwwthgsue (1 source)Cough R05.9Onset: 09-12-2021 Resolved: 43-74-5011Maqorblrkiee (1 source)Exposure to COVID-19 virus Z20.822Onset: 09-17-2021 Resolved: 09-17-2021 Results Test NameValueInterpretationReference RangeFacilityAlanine aminotransferase [Enzymatic activity/volume] in Serum or PlasmaOrdered By: Jordon Jean on 15-90-2131SYK [Catalytic activity/Vol]17 U/LNormal7-52[facility] CenterComment on above:Order Comment: FASTING.JKWPerformed By: #### CBC, CMP wRFX A1C, LIPID #### [facility] [address] [id number] USAAlbumin [Mass/volume] in Serum or Plasma by Bromocresol green (BCG) dye binding methoOrdered By: Jordon Jean on 73-80-8970Kiiztmj BCG dye [Mass/Vol]4.2 g/dL3.5-5.7FKettering Health PrebleAlkaline phosphatase [Enzymatic activity/volume] in Serum or PlasmaOrdered By: Jordon Jean on 72-80-5725DXJ [Catalytic activity/Vol]94 U/SPbkufl67-386TfikjmirdDiley Ridge Medical CenterComment on above:Order Comment: FASTING.JKWPerformed By: #### CBC, CMP wRFX A1C, LIPID #### [place] [id number] USAAspartate aminotransferase [Enzymatic activity/volume] in Serum or PlasmaOrdered By: Jordon Jean on 07-31-3229KME [Catalytic activity/Vol]16 U/VFmbifx40-67FtnjewoxrDiley Ridge Medical CenterComment on above: Order Comment: FASTING.JKWPerformed By: #### CBC, CMP wRFX A1C, LIPID #### [place] [id number] USABasophils [#/volume] in Blood by Automated countOrdered By: Jordon Jean on 32-82-5161Ugxlyhrhz (Bld) [#/Vol]0.0 10*3/uLNormal0.0-0.2 [facility] CenterComment on above:Result Comment: PERFORMED BY: [place] [address] PATHOLOGIST CLINICAL RESEARCH NURSE COORDINATOR VIC PRADHAN M.D.Performed By: #### CBC, CMP wRFX A1C, LIPID #### [place] [id number] USABasophils/100 leukocytes in Blood by Automated count Ordered By: Jordon Jean on 52-53-4290Smzcdhpye/100 WBC (Bld)0.6 %Normal. [facility] CenterComment on above:Performed By: #### CBC, CMP wRFX A1C, LIPID #### [facility] [address] [place] [address] USABilirubin.total [Mass/volume] in Serum or PlasmaOrdered By: Jordon Dentonmer on 88-77-3943Cgcetkmwj [Mass/Vol]0.6 mg/dLNormal0.3-1.0 [facility] CenterComment on above:Order Comment: FASTING.JKW Performed By: #### CBC, CMP wRFX A1C, LIPID #### [facility] [address] [place] [address] USACMP with reflex to A1Con 52-65-5399Pucfgge [Mass/Vol]4.2 g/dLNormal3.5-5.7The [facility] Baptist Physician GroupComment on above:Order Comment: FASTING.JKWPerformed By: #### CBC, CMP wRFX A1C, LIPID #### [facility] [address] [place] [address] USAGFR/1.73 sq M.predicted MDRD (S/P/Bld) [Vol rate/Area] mL/min/{1.73_m2}NormalThe [facility] Forest Baptist Physician GroupComment on above:Order Comment: FASTING.JKWPerformed By: #### CBC, CMP wRFX A1C, LIPID #### [facility] [address] [place] [address] USACalcium [Mass/volume] in Serum or PlasmaOrdered By: Jordonirving Jean on 89-96-3430Paklefl [Mass/Vol]10.3 mg/dLNormal8.6-10.3FKettering Health PrebleComment on above:Order Comment: FASTING.JKWPerformed By: #### CBC, CMP wRFX A1C, LIPID #### [facility] [address] [id number] USACarbon dioxide, total [Moles/volume] in Serum or Plasma Ordered By: Jordon Jean on 85-78-9240LC5 [Moles/Vol]28.3 mmol/LNormal 21.0-31.0[facility] CenterComment on above:Order Comment: FASTING.JKWPerformed By: #### CBC, CMP wRFX A1C, LIPID #### [facility] [address] [place] [address] USAChloride [Moles/volume] in Serum or PlasmaOrdered By: Jordon Jean on 69-01-6457Cmigmoxk [Moles/Vol]104 mmol/NGhfsye84-051WdbqgoczuDiley Ridge Medical CenterComment on above:Order Comment: FASTING.JKWPerformed By: #### CBC, CMP wRFX A1C, LIPID #### [facility] [address] [place] [address] USACholesterol [Mass/volume] in Serum or PlasmaOrdered By: Jordon Dentonmer on 11-34-5179Ilirzuwsxtg [Mass/Vol]188 mg/pIWdpsoy484-975 [facility] CenterComment on above:Chol less than 200 mg/dl low riskChol 201-239 mg/dl borderline riskChol 240 mg/dl and greater high riskOrder Comment: FASTING.JKWResult Comment: Chol less than 200 mg/dl low risk Chol 201-239 mg/dl borderline risk Chol 240 mg/dl and greater high riskPerformed By: #### CBC, CMP wRFX A1C, LIPID #### [facility] [address] [place] [address] USACholesterol in HDL [Mass/volume] in Serum or PlasmaOrdered By: Jordon Dentonmer on 64-44-9016Ouklqtpeygr in HDL [Mass/Vol]53 mg/dLNormal 23-92[facility] CenterComment on above:HDL CHOL ATP-III CLASSIFICATION Cardiovascular RiskHDL > or equal to 60 mg/dL LOWHDL < 40 mg/dL HIGHOrder Comment: FASTING.JKWResult Comment: HDL CHOL ATP-III CLASSIFICATION Cardiovascular Risk HDL > or equal to 60 mg/dL LOW HDL < 40 mg/dL HIGHPerformed By: #### CBC, CMP wRFX A1C, LIPID #### [facility] [address] [place] [address] USACholesterol in LDL Calc [Mass/Vol]Ordered By: Jordon Jean on 45-20-2869Hbxymixithb in LDL [Mass/Vol]100 mg/dL0-100[facility] CenterComment on above:LDL ATP III CLASSIFICATIONLDL less than 100 mg/dL OptimalLDL 100-129 mg/dL Near or above atzjmobLZN212-968 mg/dL Borderline highLDL 160-189 mg/dL HighLDL greater than 189 mg/dL Very high Cholesterol in VLDL Calc [Mass/Vol]Ordered By: Jordon Jean on 07-08-2025 Cholesterol in VLDL [Mass/Vol]34 mg/dLDiley Ridge Medical CenterComplete Blood Count Auto Diffon 61-55-7630Ldrp Corpuscular HGB Conc34.3 g/dLNormal 32.0-35.0The [facility] Physician GroupComment on above:Performed By: #### CBC, CMP wRFX A1C, LIPID #### [facility] [address] [place] [address] USANRBC%0.1 /100{WBC}Normal0-0.5[facility] Comment on above:Performed By: #### CBC, CMP wRFX A1C, LIPID #### [facility] [address] [place] [address] USAWhite Blood Count5.5 [CFU]/mLNormal3.8-11.6The [facility] Physician [facility] HospitalComment on above:Performed By: #### CBC, CMP wRFX A1C, LIPID #### [facility] [address] [place] [address] USACreatinine [Mass/volume] in Serum or PlasmaOrdered By: Jordon Miranda on 76-64-4741Abmczszjft [Mass/Vol]0.82 mg/dLNormal0.60-1.20 [facility] CenterComment on above:Order Comment: FASTING.JKW Performed By: #### CBC, CMP wRFX A1C, LIPID #### [facility] [address] [place] [address] USAEosinophils [#/volume] in Blood by Automated countOrdered By: Jordon Miranda on 18-46-0671Kjcaoudjppm (Bld) [#/Vol]0.1 10*3/uLNormal 0.0-0.45[facility] CenterComment on above:Performed By: #### CBC, CMP wRFX A1C, LIPID #### [facility] [address] [place] [id number] USAEosinophils/100 leukocytes in Blood by Automated count Ordered By: Jordon Jean on 47-66-9098Erurljkzzny/100 WBC (Bld)2.5 %Normal. [facility] CenterComment on above:Performed By: #### CBC, CMP wRFX A1C, LIPID #### [facility] [address] [place] [address] USAErythrocyte distribution width [Ratio] by Automated count Ordered By: Jordon Jean on 14-32-2939Xrqlbsulyvd distribution width (RBC) [Ratio]13.2 %Axfvor21.9-15.3FKettering Health PrebleComment on above: Performed By: #### CBC, CMP wRFX A1C, LIPID #### [place] [address] USAErythrocytes [#/volume] in Blood by Automated countOrdered By: Jordon Jean on 00-21-6213LLF (Bld) [#/Vol]4.83 10*6/uLNormal3.60-5.00 [facility] CenterComment on above:Performed By: #### CBC, CMP wRFX A1C, LIPID #### [place] [address] USAGlomerular filtration rate [Volume Rate/Area] in Serum, Plasma or Blood by CreatinineOrdered By: Jordon Jean on 59-50-0984Veugrbtszm filtration rate [Volume Rate/Area] in Serum, Plasma or Blood by Creatinine> 60.0 mL/MinDiley Ridge Medical CenterGlucose [Mass/volume] in Serum or Plasma Ordered By: Jordon Jean on 06-91-0407Ciarjdf [Mass/Vol]87 mg/uMNauiug42-882 [facility] CenterComment on above:Order Comment: FASTING.JKW Performed By: #### CBC, CMP wRFX A1C, LIPID #### [place] [address] USAHematocrit [Volume Fraction] of Blood by Automated count Ordered By: Jordon Jean on 87-95-9249Tcinvdiwlu (Bld) [Volume fraction]42.8 % Ldwbgh26.0-46.4FKettering Health PrebleComment on above:Performed By: #### CBC, CMP wRFX A1C, LIPID #### [facility] [address] [place] [address] USAHemoglobin [Mass/volume] in BloodOrdered By: Jordon Dentonmer on 74-82-7045Jggvkrcyvr (Bld) [Mass/Vol]14.7 g/uZRoolzi76.8-15.4FKettering Health PrebleComment on above:Performed By: #### CBC, CMP wRFX A1C, LIPID #### [facility] [address] [place] [address] USALeukocytes [#/volume] corrected for nucleated erythrocytes in Blood by Automated counOrdered By: Jordon Dentonmer on 04-06-3592KMH corrected for nucl RBC Auto (Bld) [#/Vol]5.5 10*3/uL3.8-11.6FKettering Health PrebleLeukocytes [#/volume] in Blood by Automated countOrdered By: Jordon Dentonmer on 37-27-3863SSD (Bld) [#/Vol]5.5 10*3/uLNormal3.8-11.6FKettering Health PrebleComment on above:Performed By: #### CBC, CMP wRFX A1C, LIPID #### [facility] [address] [place] [address] USALipid Panelon 41-73-0222LXO Cholesterol,Wyiaiujxqq290 mg/dLNormal0-100The [facility] Physician GroupComment on above:Order Comment: FASTING.AndieKJose Comment: LDL ATP III CLASSIFICATION LDL less than 100 mg/dL Optimal LDL 100-129 mg/dL Near or above optimal LDL 130-159 mg/dL Borderline high LDL 160-189 mg/dL High LDL greater than 189 mg/dL Very highPerformed By: #### CBC, CMP wRFX A1C, LIPID #### [facility] [address] [place] [address] USATriglyceride w/Osanyx646 mg/dLHigh0-149The [facility] Physician GroupComment on above:Order Comment: FASTING.AndieKJose Comment: TRIG ATP III CLASSIFICATION TRIG less than 150 mg/dL Normal TRIG 150-199 mg/dL Borderline high TRIG 200-500 mg/dL High TRIG greater than 500 mg/dL Very high Standard traceable to the Center for Disease Conrtrol and Prevention (CDC) test method.Performed By: #### CBC, CMP wRFX A1C, LIPID #### [facility] [address] [place] [id number] USAVLDL VZAAXCZPJSH99 mg/dLNormalThe [facility] Physician GroupComment on above:Order Comment: FASTING.AndieKWPerformed By: #### CBC, CMP wRFX A1C, LIPID #### [place] [address] USALymphocytes [#/volume] in Blood by Automated countOrdered By: Jordon Jean on 45-08-8045Koyqixhzqrr (Bld) [#/Vol]1.4 10*3/uLNormal 1.00-4.8[facility] CenterComment on above:Performed By: #### CBC, CMP wRFX A1C, LIPID #### [place] [id number] USALymphocytes/100 leukocytes in Blood by Automated count Ordered By: Jordon Jean on 55-82-2964Xcwmtlxnnqb/100 WBC (Bld)25.3 %Normal. [facility] CenterComment on above:Performed By: #### CBC, CMP wRFX A1C, LIPID #### [place] [id number] [facility] [Entitic mass] by Automated countOrdered By: Jordon Jean on 06-54-5008ESQ (RBC) [Entitic mass]30.4 olFlialn70.7-34.3FKettering Health PrebleComment on above:Performed By: #### CBC, CMP wRFX A1C, LIPID #### [place] [id number] [facility] Auto (RBC) [Mass/Vol]Ordered By: Jordon Jean on 32-09-5228UDKN (RBC) [Mass/Vol]34.3 g/dL32.0-35.0[facility] CenterMCV [Entitic volume] by Automated countOrdered By: Jordon Jean on 61-85-0186UTO (RBC) [Entitic vol]88.7 oCBifasz75-697YvmalwptyDiley Ridge Medical CenterComment on above:Performed By: #### CBC, CMP wRFX A1C, LIPID #### [facility] [address] [place], [place] [id number] USAMonocytes [#/volume] in Blood by Automated countOrdered By: Jordon Jean on 68-30-4279Mhsadqgqy (Bld) [#/Vol]0.2 10*3/uLNormal0.0-0.8 [facility] CenterComment on above:Performed By: #### CBC, CMP wRFX A1C, LIPID #### [facility] [address] [place] [address] USAMonocytes/100 leukocytes in Blood by Automated count Ordered By: Jordon Dentonmer on 48-89-3914Uzcymfpjs/100 WBC (Bld)4.0 %Normal. [facility] CenterComment on above:Performed By: #### CBC, CMP wRFX A1C, LIPID #### [facility] [address] [place] [address] USANeutrophils [#/volume] in Blood by Automated countOrdered By: Jordon Dentonmer on 70-48-4886Ydpojjtrbho (Bld) [#/Vol]3.7 10*3/uLNormal 1.8-7.7FKettering Health PrebleComment on above:Performed By: #### CBC, CMP wRFX A1C, LIPID #### [facility] [address] [place] [address] USANeutrophils/100 leukocytes in Blood by Automated count Ordered By: Jordon Dentonmer on 21-44-7000Vbjctoklfzt/100 WBC (Bld)67.6 %Normal. [facility] CenterComment on above:Performed By: #### CBC, CMP wRFX A1C, LIPID #### [facility] [address] [place] [id number] USANo Panel InformationOrdered By: Jordon Dentonmer on 10-26-6789Lhnbtdsl Creatinine Clearance (ChemN/AFKettering Health PrebleNucleated erythrocytes [Presence] in Blood by Automated countOrdered By: Jordon Dentonmer on 89-08-7314Kcagrksit RBC Auto Ql (Bld)0.1 /100{WBC}0-0.5 [facility] CenterPlatelet mean volume [Entitic volume] in Blood by Automated countOrdered By: Jordon Dentonmer on 19-29-8139Jielicqw mean volume (Bld) [Entitic vol]8.3 fLNormal6.3-10.7FKettering Health PrebleComment on above:Performed By: #### CBC, CMP wRFX A1C, LIPID #### [facility] [address] [place] [address] USAPlatelets [#/volume] in Blood by Automated countOrdered By: Jordon Jean on 59-26-3208Knqgffclg (Bld) [#/Vol]240 10*3/hEBbtbik165-376 [facility] CenterComment on above:Performed By: #### CBC, CMP wRFX A1C, LIPID #### [facility] [address] [place] [id number] USAPotassium [Moles/volume] in Serum or PlasmaOrdered By: Jordon Jean on 71-38-2316Dakdjrrwy [Moles/Vol]4.5 mmol/LNormal3.5-5.1 [facility] CenterComment on above:Hemolysis is present at a level that could interfere with the result.Contact lab if redraw is required Order Comment: FASTING.AndieKWRambrose Comment: Hemolysis is present at a level that could interfere with the result. Contact lab if redraw is requiredPerformed By: #### CBC, CMP wRFX A1C, LIPID #### [facility] [address] [place] [id number] USAProtein [Mass/volume] in Serum or PlasmaOrdered By: Jordon Jean on 94-07-4490Nrqqyey [Mass/Vol]6.9 g/dLNormal6.4-8.9[facility] CenterComment on above:Order Comment: FASTING.JKWPerformed By: #### CBC, CMP wRFX A1C, LIPID #### [facility] [address] [place] [id number] USASerum globulin measurement by calculation (mass/volume) Ordered By: Jordon Jean on 96-38-8212Wenkgyqf (S) [Mass/Vol]2.7 g/dLNormal [facility] CenterComment on above:Order Comment: FASTING.JKW Performed By: #### CBC, CMP wRFX A1C, LIPID #### [facility] [address] [place] [address] USASerum or plasma albumin/globulin mass ratioOrdered By: Jordon Jean on 10-20-1758Uomnmhs/Globulin [Mass ratio]1.6 {ratio}Normal [facility] CenterComment on above:Order Comment: FASTING.JKW Performed By: #### CBC, CMP wRFX A1C, LIPID #### [place] [address] USASerum or plasma anion gap determinationOrdered By: Jordon Jean on 01-28-1003Syzvk gap [Moles/Vol]9.2 mmol/LNormal6.0-15.0[facility] CenterComment on above:Order Comment: FASTING.JKWPerformed By: #### CBC, CMP wRFX A1C, LIPID #### [facility] [address] [place] [address] USASerum or plasma total cholesterol/high density lipoprotein (HDL) cholesterol mass ratOrdered By: Jordon Jean on 07-08-2025 Cholesterol.total/Cholesterol in HDL [Mass ratio]3.5 {ratio}Normal<5.0D[facility] Medical CenterComment on above:Order Comment: FASTING.JKWResult Comment: PERFORMED BY: [place] [address] PATHOLOGIST CLINICAL RESEARCH NURSE COORDINATOR VIC PRADHAN M.D.Performed By: #### CBC, CMP wRFX A1C, LIPID #### [facility] [address] [place] [address] USASodium [Moles/volume] in Serum or PlasmaOrdered By: Jordon Jean on 40-02-2993Nhpnsc [Moles/Vol]137 mmol/XXooimw572-897DdzuhcjukDiley Ridge Medical CenterComment on above:Order Comment: FASTING.JKWPerformed By: #### CBC, CMP wRFX A1C, LIPID #### [facility] [address] [place] [address] USATriglyceride [Mass/volume] in Serum or PlasmaOrdered By: Jordon Jean on 42-39-0048Xehrxtdkvzhe [Mass/Vol]174 mg/dLHigh0-149D[facility] Medical CenterComment on above:TRIG ATP III CLASSIFICATIONTRIG less than 150 mg/dL NormalTRIG 150-199 mg/dL Borderline highTRIG 200-500 mg/dL High TRIG greater than 500 mg/dL Very highStandard traceable to the Center for Disease Conrtrol and Prevention (CDC) test method.Urea nitrogen [Mass/volume] in Serum or PlasmaOrdered By: Jordon Jean on 70-14-6896Hzxl nitrogen [Mass/Vol] 9 mg/dLNormal7-25D[facility] Medical CenterComment on above:Order Comment: FASTING.JKWPerformed By: #### CBC, CMP wRFX A1C, LIPID #### [facility] [address] [place] [address] USABasophils [#/volume] in Blood by Automated countOrdered By: Luke Stone on 75-60-2570Cakcxhsve (Bld) [#/Vol]0.1 10*3/uLNormal0.0-0.2 [facility] Medical CenterComment on above:Performed By: #### CBC, CMP wRFX A1C, LIPID #### [facility] [address] [place] [address] USABasophils/100 leukocytes in Blood by Automated count Ordered By: Luke Stone on 21-52-8939Oiguavway/100 WBC (Bld)1.2 %Normal. [facility] Ridge Medical CenterComment on above:Performed By: #### CBC, CMP wRFX A1C, LIPID #### [facility] [address] [place] [address] USAC reactive protein [Mass/volume] in Serum or PlasmaOrdered By: Luke Stone on 68-57-6796OAL [Mass/Vol]0.5 mg/dL0.0-0.5FKettering Health PrebleC-Reactive Proteinon 52-48-8761K-Reactive Protein0.5 mg/dLNormal 0.0-0.5The [facility] Baptist Physician GroupComment on above:Performed By: #### CBC, CMP wRFX A1C, LIPID #### [facility] [address] [place] [address] USAComplete Blood Count Auto Diffon 89-53-5989Peft Corpuscular HGB Conc34.0 g/wVCfudnc76.0-35.0The [facility]ician [facility] HospitalComment on above:Performed By: #### CBC, CMP wRFX A1C, LIPID #### [facility] [address] [place] [address] USANRBC%0.1 /100{WBC}Normal0-0.5The [facility] Comment on above:Performed By: #### CBC, CMP wRFX A1C, LIPID #### [place] [address] USAWhite Blood Count6.1 [CFU]/mLNormal3.8-11.6The [facility] HospitalComment on above:Performed By: #### CBC, CMP wRFX A1C, LIPID #### [facility] [address] [place] [address] USAEosinophils [#/volume] in Blood by Automated countOrdered By: Luke Stone on 01-66-0259Twkaxtregne (Bld) [#/Vol]0.2 10*3/uLNormal 0.0-0.45D[facility] Medical CenterComment on above:Performed By: #### CBC, CMP wRFX A1C, LIPID #### [place] [address] USAEosinophils/100 leukocytes in Blood by Automated count Ordered By: Luke Stoen on 41-50-7343Inflwlfkxma/100 WBC (Bld)3.8 %Normal. [facility] CenterComment on above:Performed By: #### CBC, CMP wRFX A1C, LIPID #### [facility] [address] [place] [address] USAErythrocyte Sedimentation Rateon 82-65-3988IFM (Bld) [Velocity]18 mm/hNormal0-19The [facility] Baptist Physician GroupComment on above:Result Comment: PERFORMED BY: [place] [address] PATHOLOGIST CLINICAL RESEARCH NURSE COORDINATOR VIC PRADHAN M.D.Performed By: #### CBC, CMP wRFX A1C, LIPID #### [place] [address] USAErythrocyte distribution width [Ratio] by Automated count Ordered By: Luke Stone on 86-44-6894Gvfhrfqacgw distribution width (RBC) [Ratio]14.0 %Pzpsxh41.9-15.3FKettering Health PrebleComment on above: Performed By: #### CBC, CMP wRFX A1C, LIPID #### [place] [address] USAErythrocyte sedimentation rate by Photometric method Ordered By: Luke Stone on 21-42-6585OGV Photometric method (Bld) [Velocity]18 mm/hr0-19D[facility] Ridge Medical CenterErythrocytes [#/volume] in Blood by Automated countOrdered By: Luke Stone on 83-60-2292OXC (Bld) [#/Vol]5.23 10*6/uLHigh3.60-5.00D[facility] Medical CenterComment on above:Performed By: #### CBC, CMP wRFX A1C, LIPID #### [facility] [address] [place] [address] USAHematocrit [Volume Fraction] of Blood by Automated count Ordered By: Luke Stone on 80-17-2039Tggwzzwnvr (Bld) [Volume fraction]46.1 % Qgegsf01.0-46.4FKettering Health PrebleComment on above:Performed By: #### CBC, CMP wRFX A1C, LIPID #### [facility] [address] [place] [address] USAHemoglobin [Mass/volume] in BloodOrdered By: Luke Stone on 70-26-4881Akzreotsvj (Bld) [Mass/Vol]15.7 g/uLUsih69.8-15.4FKettering Health PrebleComment on above:Performed By: #### CBC, CMP wRFX A1C, LIPID #### [facility] [address] [place] [id number] USALeukocytes [#/volume] corrected for nucleated erythrocytes in Blood by Automated counOrdered By: Luke Stone on 21-07-7997UTL corrected for nucl RBC Auto (Bld) [#/Vol]6.1 10*3/uL3.8-11.6FKettering Health PrebleLeukocytes [#/volume] in Blood by Automated countOrdered By: Luke Stone on 86-30-4067RUG (Bld) [#/Vol]6.1 10*3/uLNormal3.8-11.6FKettering Health PrebleComment on above:Performed By: #### CBC, CMP wRFX A1C, LIPID #### [facility] [address] [place] [id number] USALymphocytes [#/volume] in Blood by Automated countOrdered By: Luke Stone on 61-82-9095Lvcdxnlzcdu (Bld) [#/Vol]1.3 10*3/uLNormal 1.00-4.8D[facility] Medical CenterComment on above:Performed By: #### CBC, CMP wRFX A1C, LIPID #### [facility] [address] [place] [id number] USALymphocytes/100 leukocytes in Blood by Automated count Ordered By: Luke Stone on 20-52-5997Wnypspxwuyv/100 WBC (Bld)21.9 %Normal. [facility] Medical CenterComment on above:Performed By: #### CBC, CMP wRFX A1C, LIPID #### [facility] [address] [place] [address] USAMCH [Entitic mass] by Automated countOrdered By: Luke Stone on 63-62-8852VAG (RBC) [Entitic mass]30.0 tcYhhlcf28.7-34.3FKettering Health PrebleComment on above:Performed By: #### CBC, CMP wRFX A1C, LIPID #### [facility] [address] [place] [id number] USAHC Auto (RBC) [Mass/Vol]Ordered By: Luke Bertha on 43-77-9010QAXS (RBC) [Mass/Vol]34.0 g/dL32.0-35.0D[facility] Medical CenterMCV [Entitic volume] by Automated countOrdered By: Luke Bertha on 66-27-1017QCI (RBC) [Entitic vol]88.3 pGMpjqpa18-497OnvszhmacDiley Ridge Medical CenterComment on above:Performed By: #### CBC, CMP wRFX A1C, LIPID #### [facility] [address] [place] [address] USAMonocytes [#/volume] in Blood by Automated countOrdered By: Luke Stone on 62-85-7304Xiumircbx (Bld) [#/Vol]0.4 10*3/uLNormal0.0-0.8 [facility] CenterComment on above:Performed By: #### CBC, CMP wRFX A1C, LIPID #### [facility] [address] [place] [id number] USAMonocytes/100 leukocytes in Blood by Automated count Ordered By: Luke Stone on 33-87-4005Trpvonjva/100 WBC (Bld)5.8 %Normal. [facility] Medical CenterComment on above:Performed By: #### CBC, CMP wRFX A1C, LIPID #### [facility] [address] [place] [id number] USANeutrophils [#/volume] in Blood by Automated countOrdered By: Luke Stone on 75-66-3724Fdubfeeqbmw (Bld) [#/Vol]4.1 10*3/uLNormal1.8-7.7 [facility] CenterComment on above:Performed By: #### CBC, CMP wRFX A1C, LIPID #### [facility] [address] [place] [id number] USANeutrophils/100 leukocytes in Blood by Automated count Ordered By: Luke Stone on 43-42-1753Dqvdyakkqzv/100 WBC (Bld)67.3 %Normal. [facility] CenterComment on above:Performed By: #### CBC, CMP wRFX A1C, LIPID #### [facility] [address] [place] [address] USANucleated erythrocytes [Presence] in Blood by Automated countOrdered By: Luke Stone on 69-96-2046Houseiwbk RBC Auto Ql (Bld)0.1 /100{WBC}0-0.5FKettering Health PreblePlatelet mean volume [Entitic volume] in Blood by Automated countOrdered By: Luke Stone on 03-09-2025 Platelet mean volume (Bld) [Entitic vol]8.5 fLNormal6.3-10.7FKettering Health PrebleComment on above:Performed By: #### CBC, CMP wRFX A1C, LIPID #### [facility] [address] [place] [address] USAPlatelets [#/volume] in Blood by Automated countOrdered By: Luke Stone on 22-31-6820Lfrsfpdjk (Bld) [#/Vol]282 10*3/sSRsmndc568-402 [facility] CenterComment on above:Performed By: #### CBC, CMP wRFX A1C, LIPID #### [facility] [address] [place] [address] USAThyroid Stim Hormone w/Rflxon 43-95-8733Rdvqpby Stim Hormone w/Rflx1.37 u[iU]/mLNormal0.45-5.33The [facility] Baptist Physician GroupComment on above:Result Comment: PERFORMED BY: [place] [address] PATHOLOGIST CLINICAL RESEARCH NURSE COORDINATOR VIC PRADHAN M.D.Performed By: #### CBC, CMP wRFX A1C, LIPID #### [place] [address] USAThyrotropin [Units/volume] in Serum or PlasmaOrdered By: Luke Stone on 91-66-6014CEE Qn1.37 m[IU]/L0.45-5.33D[facility] Medical CenterANA Antinuclear Antibodieson 68-57-9212Pwcejcxswzx Abs, IFANegativeNormal .The [facility] Baptist Physician GroupComment on above:Result Comment: Negative <1:80 Borderline 1:80 Positive >1:80 ICAP nomenclature: AC-0 For more information about Hep-2 cell patterns use ANApatterns.org, the official website for the International Consensus on Antinuclear Antibody (JEANNETTE) Patterns (ICAP). Performed at: - [facility] [address] [id number] Ship Laborer: Doron Redding PhD, Phone: [phone] By: #### RA, LEAD,ADULT, JEANNETTE #### [facility] , #### ADDONUAPLUS, CRP, ESR, CBC, CMP wRFX A1C #### [facility] [address]Alanine aminotransferase [Enzymatic activity/volume] in Serum or PlasmaOrdered By: Nicho Mayen on 74-73-0541WCP [Catalytic activity/Vol] Alanine aminotransferase [Enzymatic activity/volume] in Serum or Plasma7-52 [facility] CenterAlbumin [Mass/volume] in Serum or Plasma by Bromocresol green (BCG) dye binding methoOrdered By: Nicho Mayen on 11-19-2024 Albumin BCG dye [Mass/Vol]Albumin [Mass/volume] in Serum or Plasma by Bromocresol green (BCG) dye binding metho3.5-5.7FKettering Health PrebleAlkaline phosphatase [Enzymatic activity/volume] in Serum or PlasmaOrdered By: Nicho Mayen on 15-19-8544WBH [Catalytic activity/Vol]Alkaline phosphatase [Enzymatic activity/volume] in Serum or Lkahkm47-027UdmvorifkDiley Ridge Medical CenterAppearance of UrineOrdered By: Nicho Mayen on 12-97-3703Pncsudfpbl (U)Urine appearanceClearFKettering Health PrebleAspartate aminotransferase [Enzymatic activity/volume] in Serum or PlasmaOrdered By: Nicho Mayen on 89-32-7993IPE [Catalytic activity/Vol]Aspartate aminotransferase [Enzymatic activity/volume] in Serum or QjgqxuQjq52-15BduezyrpyDiley Ridge Medical Center Bacteria [Presence] in Urine by AutomatedOrdered By: [facility] on 11-19-2024 Bacteria Auto Ql (U)Bacteria [Presence] in Urine by AutomatedNone SeenDiley Ridge Medical CenterBasophils Auto (Bld) [#/Vol]Ordered By: [facility] on 82-73-0853Gsygzbmmt (Bld) [#/Vol]Automated basophil count0.0-0.2FKettering Health PrebleBasophils/100 WBC Auto (Bld)Ordered By: [facility] on 92-15-2644Lipwskxvb/100 WBC (Bld)Automated basophil %.D[facility] Medical CenterBilirubin Test strip Ql (U)Ordered By: [facility] on 93-68-1144Aqyihhhem Ql (U)Bilirubin.total [Presence] in Urine by Test stripNegativeDiley Ridge Medical CenterBilirubin.total [Mass/volume] in Serum or PlasmaOrdered By: [facility] on 47-05-5047Sfdnjuxsb [Mass/Vol]Bilirubin.total [Mass/volume] in Serum or Plasma0.3-1.0D[facility] Medical CenterC reactive protein [Mass/volume] in Serum or PlasmaOrdered By: [facility] on 84-28-3795OOE [Mass/Vol]C reactive protein [Mass/volume] in Serum or PlasmaHigh0.0-0.5 [facility] CenterC-Reactive Proteinon 15-67-5255S-Reactive Protein0.7 mg/dLHigh0.0-0.5The [facility] Baptist Physician GroupComment on above:Order Comment: FASTING.JKWResult Comment: PERFORMED BY: [facility] [address] [place] [address] PATHOLOGIST CLINICAL RESEARCH NURSE COORDINATOR ENEDELIA LAGUNAS M.D.Performed By: #### RA, LEAD,ADULT, JEANNETTE #### [facility] , #### ADDONUAPLUS, CRP, ESR, CBC, CMP wRFX A1C #### [facility] [address] [place] [address] USACMP with reflex to A1Con 71-58-6852Nxxabkl [Mass/Vol]4.4 g/dLNormal3.5-5.7The [facility] Physician GroupComment on above:Order Comment: FASTING.JKWPerformed By: #### RA, LEAD,ADULT, JEANNETTE #### [facility] , #### ADDONUAPLUS, CRP, ESR, CBC, CMP wRFX A1C #### [facility] [address] [place] [address] USAAlbumin/Globulin [Mass ratio]1.8 {ratio}NormalThe [facility] Baptist Physician GroupComment on above:Order Comment: FASTING.JKWPerformed By: #### RA, LEAD,ADULT, JEANNETTE #### [facility] , #### ADDONUAPLUS, CRP, ESR, CBC, CMP wRFX A1C #### [facility] [address] [place] [address] USAALP [Catalytic activity/Vol]70 U/HYwgpsd33-620Edz [facility] Physician GroupComment on above:Order Comment: FASTING.JKWPerformed By: #### RA, LEAD,ADULT, JEANNETTE #### [facility] , #### ADDONUAPLUS, CRP, ESR, CBC, CMP wRFX A1C #### [facility] [address] [place] [address] USAALT [Catalytic activity/Vol]17 U/LNormal7-52The [facility] Physician [facility] HospitalComment on above:Order Comment: FASTING.JKWPerformed By: #### RA, LEAD,ADULT, JEANNETTE #### [facility] , #### ADDONUAPLUS, CRP, ESR, CBC, CMP wRFX A1C #### [facility] [address] [place] [address] USAAnion gap [Moles/Vol]8.4 mmol/LNormal6.0-15.0The [facility] HospitalComment on above:Order Comment: FASTING.JKWPerformed By: #### RA, LEAD,ADULT, JEANNETTE #### [facility] , #### ADDONUAPLUS, CRP, ESR, CBC, CMP wRFX A1C #### [place] [address] USAAST [Catalytic activity/Vol]12 U/LOgd21-34Ruv [facility] Physician GroupComment on above:Order Comment: FASTING.JKWPerformed By: #### RA, LEAD,ADULT, JEANNETTE #### [facility] , #### ADDONUAPLUS, CRP, ESR, CBC, CMP wRFX A1C #### [place] [address] USABilirubin [Mass/Vol]0.5 mg/dLNormal0.3-1.0The [facility] Physician GroupComment on above:Order Comment: FASTING.JKWPerformed By: #### RA, LEAD,ADULT, JEANNETTE #### [facility] , #### ADDONUAPLUS, CRP, ESR, CBC, CMP wRFX A1C #### [place] [address] USACalcium [Mass/Vol]10.7 mg/dLHigh8.6-10.3The [facility] Physician GroupComment on above:Order Comment: FASTING.JKWPerformed By: #### RA, LEAD,ADULT, JEANNETTE #### [facility] , #### ADDONUAPLUS, CRP, ESR, CBC, CMP wRFX A1C #### [place] [address] USAChloride [Moles/Vol]106 mmol/APajjvx54-076Eml [facility] Physician GroupComment on above:Order Comment: FASTING.JKWPerformed By: #### RA, LEAD,ADULT, JEANNETTE #### [facility] , #### ADDONUAPLUS, CRP, ESR, CBC, CMP wRFX A1C #### [place] [address] USACO2 [Moles/Vol]28.8 mmol/BFxhhjd41.0-31.0The [facility] Physician GroupComment on above:Order Comment: FASTING.JKWPerformed By: #### RA, LEAD,ADULT, JEANNETTE #### [facility] , #### ADDONUAPLUS, CRP, ESR, CBC, CMP wRFX A1C #### [place] [address] USACreatinine [Mass/Vol]0.80 mg/dLNormal0.60-1.20The [facility] Physician GroupComment on above:Order Comment: FASTING.JKWPerformed By: #### RA, LEAD,ADULT, JEANNETTE #### [facility] , #### ADDONUAPLUS, CRP, ESR, CBC, CMP wRFX A1C #### [place] [address] USAGFR/1.73 sq M.predicted MDRD (S/P/Bld) [Vol rate/Area] mL/min/{1.73_m2}NormalThe [facility] Baptist Physician GroupComment on above:Order Comment: FASTING.JKWPerformed By: #### RA, LEAD,ADULT, JEANNETTE #### [facility] , #### ADDONUAPLUS, CRP, ESR, CBC, CMP wRFX A1C #### [place] [address] USAGlobulin (S) [Mass/Vol]2.4 g/dLNormalThe [facility] Physician GroupComment on above:Order Comment: FASTING.JKWPerformed By: #### RA, LEAD,ADULT, JEANNETTE #### [facility] , #### ADDONUAPLUS, CRP, ESR, CBC, CMP wRFX A1C #### [place] [address] USAGlucose [Mass/Vol]92 mg/kMSloqju51-821Nft [facility] Physician GroupComment on above:Order Comment: FASTING.JKWPerformed By: #### RA, LEAD,ADULT, JEANNETTE #### [facility] , #### ADDONUAPLUS, CRP, ESR, CBC, CMP wRFX A1C #### [address] [place] [address] USAPotassium [Moles/Vol]4.2 mmol/LNormal3.5-5.1The [facility] Physician GroupComment on above:Order Comment: FASTING.JKWPerformed By: #### RA, LEAD,ADULT, JEANNETTE #### [facility] , #### ADDONUAPLUS, CRP, ESR, CBC, CMP wRFX A1C #### [place] [address] USAProtein [Mass/Vol]6.8 g/dLNormal6.4-8.9The [facility] Physician GroupComment on above:Order Comment: FASTING.JKWPerformed By: #### RA, LEAD,ADULT, JEANNETTE #### [facility] , #### ADDONUAPLUS, CRP, ESR, CBC, CMP wRFX A1C #### [place] [address] USASodium [Moles/Vol]139 mmol/OXyhhdn014-227Pna [facility] Physician GroupComment on above:Order Comment: FASTING.JKWPerformed By: #### RA, LEAD,ADULT, JEANNETTE #### [facility] , #### ADDONUAPLUS, CRP, ESR, CBC, CMP wRFX A1C #### [place] [id number] USAUrea nitrogen [Mass/Vol]15 mg/dLNormal7-25The [facility] Physician GroupComment on above:Order Comment: FASTING.JKWPerformed By: #### RA, LEAD,ADULT, JEANNETTE #### [facility] , #### ADDONUAPLUS, CRP, ESR, CBC, CMP wRFX A1C #### [place] [address] USACalcium [Mass/volume] in Serum or PlasmaOrdered By: Nicho Mayen on 00-86-9668Rkvpnrs [Mass/Vol]Calcium [Mass/volume] in Serum or PlasmaHigh 8.6-10.3FKettering Health PrebleCarbon dioxide, total [Moles/volume] in Serum or PlasmaOrdered By: Nicho Mast on 60-46-1227YE5 [Moles/Vol]Carbon dioxide, total [Moles/volume] in Serum or Avnvhf95.0-31.0[facility] Medical CenterChloride [Moles/volume] in Serum or PlasmaOrdered By: Nicho Mast on 37-44-9078Btotdred [Moles/Vol]Chloride [Moles/volume] in Serum or Tpjdsk16-639 [facility] CenterColor Auto (U)Ordered By: Nicho Mast on 77-99-6164Bagxg (U)Color of Urine by AutoYellowDiley Ridge Medical Center Complete Blood Count Auto Diffon 34-88-9856Bsidqewue (Bld) [#/Vol]0.0 10*3/uL Normal0.0-0.2The [facility] Physician GroupComment on above:Performed By: #### RA, LEAD,ADULT, JEANNETTE #### [facility] , #### ADDONUAPLUS, CRP, ESR, CBC, CMP wRFX A1C #### [facility] [address] [place] [id number] USABasophils/100 WBC (Bld)0.3 %Normal.The [facility] Baptist Physician GroupComment on above:Performed By: #### RA, LEAD,ADULT, JEANNETTE #### [facility] , #### ADDONUAPLUS, CRP, ESR, CBC, CMP wRFX A1C #### [facility] [address] [place] [id number] USAEosinophils (Bld) [#/Vol]0.2 10*3/uLNormal0.0-0.45The [facility] Physician GroupComment on above:Performed By: #### RA, LEAD,ADULT, JEANNETTE #### [facility] , #### ADDONUAPLUS, CRP, ESR, CBC, CMP wRFX A1C #### [facility] [address] [place] [address] USAEosinophils/100 WBC (Bld)2.9 %Normal.The [facility] Physician GroupComment on above:Performed By: #### RA, LEAD,ADULT, JEANNETTE #### [facility] , #### ADDONUAPLUS, CRP, ESR, CBC, CMP wRFX A1C #### [facility] [address] [place] [address] USAErythrocyte distribution width (RBC) [Ratio]12.8 %Normal 11.9-15.3The [facility] Physician GroupComment on above:Performed By: #### RA, LEAD,ADULT, JEANNETTE #### [facility] , #### ADDONUAPLUS, CRP, ESR, CBC, CMP wRFX A1C #### [facility] [address] [place] [address] USAHematocrit (Bld) [Volume fraction]46.5 %High34.0-46.4The [facility] Baptist Physician GroupComment on above:Performed By: #### RA, LEAD,ADULT, JEANNETTE #### [facility] , #### ADDONUAPLUS, CRP, ESR, CBC, CMP wRFX A1C #### [facility] [address] [place] [address] USAHemoglobin (Bld) [Mass/Vol]15.5 g/aBSjvd51.8-15.4The [facility] Physician GroupComment on above:Performed By: #### RA, LEAD,ADULT, JEANNETTE #### [facility] , #### ADDONUAPLUS, CRP, ESR, CBC, CMP wRFX A1C #### [facility] [address] [place] [address] USALymphocytes (Bld) [#/Vol]1.2 10*3/uLNormal1.00-4.8The [facility] Physician GroupComment on above:Performed By: #### RA, LEAD,ADULT, JEANNETTE #### [facility] , #### ADDONUAPLUS, CRP, ESR, CBC, CMP wRFX A1C #### [facility] [address] [place] [address] USALymphocytes/100 WBC (Bld)20.4 %Normal.The [facility] Physician GroupComment on above:Performed By: #### RA, LEAD,ADULT, JEANNETTE #### [facility] , #### ADDONUAPLUS, CRP, ESR, CBC, CMP wRFX A1C #### [facility] [address] (RBC) [Entitic mass]29.4 bjCvexgm83.7-34.3The [facility] Baptist Physician GroupComment on above:Performed By: #### RA, LEAD,ADULT, JEANNETTE #### [facility] , #### ADDONUAPLUS, CRP, ESR, CBC, CMP wRFX A1C #### [address] (RBC) [Entitic vol]88.4 lNPtzpbv03-542Zmc [facility] Physician GroupComment on above:Performed By: #### RA, LEAD,ADULT, JEANNETTE #### [facility] , #### ADDONUAPLUS, CRP, ESR, CBC, CMP wRFX A1C #### [place] [address] USAMean Corpuscular HGB Conc33.3 g/cZXgvetx37.0-35.0The [facility] Physician GroupComment on above:Performed By: #### RA, LEAD,ADULT, JEANNETTE #### [facility] , #### ADDONUAPLUS, CRP, ESR, CBC, CMP wRFX A1C #### [place] [address] USAMonocytes (Bld) [#/Vol]0.3 10*3/uLNormal0.0-0.8The [facility] Physician GroupComment on above:Performed By: #### RA, LEAD,ADULT, JEANNETTE #### [facility] , #### ADDONUAPLUS, CRP, ESR, CBC, CMP wRFX A1C #### [place] [address] USAMonocytes/100 WBC (Bld)5.0 %Normal.The [facility] Baptist Physician GroupComment on above:Performed By: #### RA, LEAD,ADULT, EJANNETTE #### [facility] , #### ADDONUAPLUS, CRP, ESR, CBC, CMP wRFX A1C #### [place] [address] USANeutrophils (Bld) [#/Vol]4.0 10*3/uLNormal1.8-7.7The [facility] Physician GroupComment on above:Performed By: #### RA, LEAD,ADULT, JEANNETTE #### [facility] , #### ADDONUAPLUS, CRP, ESR, CBC, CMP wRFX A1C #### [place] [address] USANeutrophils/100 WBC (Bld)71.4 %Normal.The [facility] Baptist Physician GroupComment on above:Performed By: #### RA, LEAD,ADULT, JEANNETTE #### [facility] , #### ADDONUAPLUS, CRP, ESR, CBC, CMP wRFX A1C #### [place] [address] USANRBC%0.2 /100{WBC}Normal0-0.5The [facility] Comment on above:Performed By: #### RA, LEAD,ADULT, JEANNETTE #### [facility] , #### ADDONUAPLUS, CRP, ESR, CBC, CMP wRFX A1C #### [place] [address] USAPlatelet mean volume (Bld) [Entitic vol]8.9 fLNormal 6.3-10.7The [facility] Baptist Physician GroupComment on above:Performed By: #### RA, LEAD,ADULT, JEANNETTE #### [facility] , #### ADDONUAPLUS, CRP, ESR, CBC, CMP wRFX A1C #### [place] [address] USAPlatelets (Bld) [#/Vol]245 10*3/zZGcvufx320-315Uqa [facility] Physician GroupComment on above:Performed By: #### RA, LEAD,ADULT, JEANNETTE #### [facility] , #### ADDONUAPLUS, CRP, ESR, CBC, CMP wRFX A1C #### [facility] [address] [place] [address] USARBC (Bld) [#/Vol]5.26 10*6/uLHigh3.60-5.00[facility] Physician GroupComment on above:Performed By: #### RA, LEAD,ADULT, JEANNETTE #### [facility] , #### ADDONUAPLUS, CRP, ESR, CBC, CMP wRFX A1C #### [place] [address] USAWBC (Bld) [#/Vol]5.6 10*3/uLNormal3.8-11.6The [facility] Physician GroupComment on above:Performed By: #### RA, LEAD,ADULT, JEANNETTE #### [facility] , #### ADDONUAPLUS, CRP, ESR, CBC, CMP wRFX A1C #### [place] [address] USACreatinine [Mass/volume] in Serum or PlasmaOrdered By: Nicho Mayen on 16-88-9894Jxynlwkwhw [Mass/Vol]Creatinine [Mass/volume] in Serum or Plasma0.60-1.20[facility] Medical CenterDipstick and Microscopicon 11-90-7732Uhprzbjuao (U)ClearNormalClearThe [facility] Baptist Physician GroupComment on above:Order Comment: Name Collection Type:: Clean-Voided MidstreamPerformed By: #### RA, LEAD,ADULT, JEANNETTE #### [facility] , #### ADDONUAPLUS, CRP, ESR, CBC, CMP wRFX A1C #### [place] [address] USABacteria,UrineRareNormalNone SeenThe [facility] Baptist Physician GroupComment on above:Order Comment: Name Collection Type:: Clean-Voided MidstreamPerformed By: #### RA, LEAD,ADULT, JEANNETTE #### [facility] , #### ADDONUAPLUS, CRP, ESR, CBC, CMP wRFX A1C #### [facility] [address] [place] [address] USABilirubin,UrineNegativeNormalNegativeAdventhealth Tampa Physician GroupComment on above:Order Comment: Name Collection Type:: Clean- Voided MidstreamPerformed By: #### RA, LEAD,ADULT, JEANNETTE #### [facility] , #### ADDONUAPLUS, CRP, ESR, CBC, CMP wRFX A1C #### [place] [address] USAColor (U)YellowNormalYellowAdventhealth Tampa Physician Group Comment on above:Order Comment: Name Collection Type:: Clean-Voided Midstream Performed By: #### RA, LEAD,ADULT, JEANNETTE #### [facility] , #### ADDONUAPLUS, CRP, ESR, CBC, CMP wRFX A1C #### [facility] [address] [place] [address] USAGlucose Ql (U)NormalNormalNormalThBear Lake Memorial Hospital Physician GroupComment on above:Order Comment: Name Collection Type:: Clean-Voided MidstreamPerformed By: #### RA, LEAD,ADULT, JEANNETTE #### [facility] , #### ADDONUAPLUS, CRP, ESR, CBC, CMP wRFX A1C #### [place] [address] USAHyaline Casts,UrineNoneNormal0-8The [facility] Physician GroupComment on above:Order Comment: Name Collection Type:: Clean-Voided MidstreamPerformed By: #### RA, LEAD,ADULT, JEANNETTE #### [facility] , #### ADDONUAPLUS, CRP, ESR, CBC, CMP wRFX A1C #### [place] [address] USAKetones Ql (U)1+HighNegativeThe [facility] Comment on above:Order Comment: Name Collection Type:: Clean-Voided Midstream Performed By: #### RA, LEAD,ADULT, JEANNETTE #### [facility] , #### ADDONUAPLUS, CRP, ESR, CBC, CMP wRFX A1C #### [place] [address] USALeukocyte esterase Test strip Ql (U)NegativeNormalNegative The [facility] Physician GroupComment on above:Order Comment: Name Collection Type:: Clean-Voided MidstreamPerformed By: #### RA, LEAD,ADULT, JEANNETTE #### [facility] , #### ADDONUAPLUS, CRP, ESR, CBC, CMP wRFX A1C #### [place] [address] USAMucus,Urine1+Critically abnormalThe [facility] Baptist Physician GroupComment on above:Order Comment: Name Collection Type:: Clean-Voided MidstreamResult Comment: PERFORMED BY: [place] [address] PATHOLOGIST CLINICAL RESEARCH NURSE COORDINATOR ENEDELIA LAGUNAS M.D.Performed By: #### RA, LEAD,ADULT, JEANNETTE #### [facility] , #### ADDONUAPLUS, CRP, ESR, CBC, CMP wRFX A1C #### [place] [address] USANitrite,UrineNegativeNormalNegativeThe [facility] Physician GroupComment on above:Order Comment: Name Collection Type:: Clean-Voided MidstreamPerformed By: #### RA, LEAD,ADULT, JEANNETTE #### [facility] , #### ADDONUAPLUS, CRP, ESR, CBC, CMP wRFX A1C #### [place] [address] USAOccult Blood,UrineNegativeNormalNegativeThe [facility] Physician GroupComment on above:Order Comment: Name Collection Type:: Clean- Voided MidstreamResult Comment: PERFORMED BY: [place] [address] PATHOLOGIST CLINICAL RESEARCH NURSE COORDINATOR ENEDELIA LAGUNAS M.D.Performed By: #### RA, LEAD,ADULT, JEANNETTE #### [facility] , #### ADDONUAPLUS, CRP, ESR, CBC, CMP wRFX A1C #### [place] [address] USApH (U)8.0 [pH]Normal5.0-9.0[facility] Comment on above:Order Comment: Name Collection Type:: Clean-Voided Midstream Performed By: #### RA, LEAD,ADULT, JEANNETTE #### [facility] , #### ADDONUAPLUS, CRP, ESR, CBC, CMP wRFX A1C #### [place] [address] USAProtein (U) [Mass/Vol]30 mg/dLHighNegativeThe [facility] Baptist Physician GroupComment on above:Order Comment: Name Collection Type:: Clean- Voided MidstreamPerformed By: #### RA, LEAD,ADULT, JEANNETTE #### [facility] , #### ADDONUAPLUS, CRP, ESR, CBC, CMP wRFX A1C #### [place] [address] USARBC,Nvodq3-4Bsphiu7-2Abw [facility] Physician GroupComment on above:Order Comment: Name Collection Type:: Clean-Voided MidstreamPerformed By: #### RA, LEAD,ADULT, JEANNETTE #### [facility] , #### ADDONUAPLUS, CRP, ESR, CBC, CMP wRFX A1C #### [place] [address] USASpecificy [place],Urine1.470Mazvbl0.001-1.030The [facility] Physician GroupComment on above:Order Comment: Name Collection Type:: Clean- Voided MidstreamPerformed By: #### RA, LEAD,ADULT, JEANNETTE #### [facility] , #### ADDONUAPLUS, CRP, ESR, CBC, CMP wRFX A1C #### [facility] [address] [place] [address] USASquamous Epithelial Cell,Ukcbd43-38Xgik6-4Tja [facility] Physician GroupComment on above:Order Comment: Name Collection Type:: Clean- Voided MidstreamPerformed By: #### RA, LEAD,ADULT, JEANNETTE #### [facility] , #### ADDONUAPLUS, CRP, ESR, CBC, CMP wRFX A1C #### [facility] [address] [place] [address] USAUrobilinogen,Urine2 mg/dLSt. Joseph'S HospitalNoAtrium Health Union Physician GroupComment on above:Order Comment: Name Collection Type:: Clean-Voided MidstreamPerformed By: #### RA, LEAD,ADULT, JEANNETTE #### [facility] , #### ADDONUAPLUS, CRP, ESR, CBC, CMP wRFX A1C #### [facility] [address] [place] [address] USAWBC,Nngdu4-9Ezwl2-2Tiq [facility] Physician GroupComment on above:Order Comment: Name Collection Type:: Clean-Voided MidstreamPerformed By: #### RA, LEAD,ADULT, JEANNETTE #### [facility] , #### ADDONUAPLUS, CRP, ESR, CBC, CMP wRFX A1C #### [facility] [address] [place] [address] USAEosinophils Auto (Bld) [#/Vol]Ordered By: Nicho Mast on 21-73-7099Quofceqqbjz (Bld) [#/Vol]Automated eosinophil count0.0-0.45[facility] Medical CenterEosinophils/100 WBC Auto (Bld)Ordered By: Nicho Mast on 87-11-8496Ydixdlltbrx/100 WBC (Bld)Automated eosinophil %.[facility] Medical CenterEpithelial cells.squamous [#/area] in Urine sediment by Automated countOrdered By: Nicho Mayen on 68-76-3145Hnsqweqwau cells.squamous Auto (Urine sed) [#/Area]Epithelial cells.squamous [#/area] in Urine sediment by Automated countHigh0-2FKettering Health PrebleErythrocyte Sedimentation Rateon 67-28-6456CYI (Bld) [Velocity]14 mm/hNormal0-19The [facility] Comment on above:Result Comment: PERFORMED BY: [place] [address] PATHOLOGIST CLINICAL RESEARCH NURSE COORDINATOR ENEDELIA LAGUNAS M.D.Performed By: #### RA, LEAD,ADULT, JEANNETTE #### [facility] , #### ADDONUAPLUS, CRP, ESR, CBC, CMP wRFX A1C #### [address] StreetErythrocyte distribution width Auto (RBC) [Ratio]Ordered By: Nicho Mayen on 70-56-2405Phbzpdrxtmg distribution width (RBC) [Ratio] Erythrocyte distribution width [Ratio] by Automated count11.9-15.3FKettering Health PrebleErythrocyte sedimentation rate by Photometric method Ordered By: Nicho Mayen on 04-41-5808EYW Photometric method (Bld) [Velocity] Erythrocyte sedimentation rate by Photometric method0D[facility] Medical CenterErythrocytes [#/area] in Urine sediment by Automated countOrdered By: Nicho Mayen on 02-10-4892ZEZ Auto (Urine sed) [#/Area]Erythrocytes [#/area] in Urine sediment by Automated count0-[facility] Health PrebleGlobulin Calc (S) [Mass/Vol]Ordered By: Nicho Mayen on 26-93-7088Dxsweetq (S) [Mass/Vol] Serum globulin measurement by calculation (mass/volume)[facility] Medical CenterGlucose [Mass/volume] in Serum or PlasmaOrdered By: Nicho Faheem on 03-72-1740Eajdjvi [Mass/Vol]Glucose [Mass/volume] in Serum or Ifvbkh87-742 [facility] CenterGlucose [Mass/volume] in Urine by Test strip Ordered By: Nicho Mayen on 92-09-5090Rgvyxet Test strip (U) [Mass/Vol]Glucose [Mass/volume] in Urine by Test stripNormKettering Health [facility]burg Hematocrit Auto (Bld) [Volume fraction]Ordered By: [facility] on 11-19-2024 Hematocrit (Bld) [Volume fraction]Hematocrit [Volume Fraction] of Blood by Automated rtyzlSpfy73.0-46.4FKettering Health PrebleHemoglobin Test strip Ql (U)Ordered By: [facility] on 58-52-3395Zmjytojnyz Ql (U)Hemoglobin [Presence] in Urine by Test stripNegGrant Hospital Hemoglobin [Mass/volume] in BloodOrdered By: [facility] on 35-60-8669Sfslwxupna (Bld) [Mass/Vol]Hemoglobin [Mass/volume] in MyyaaRcnq31.8-15.4FKettering Health PrebleHyaline casts [#/area] in Urine sediment by Automated count Ordered By: [facility] on 46-34-5950Cfbvvau casts Auto (Urine sed) [#/Area] Hyaline casts [#/area] in Urine sediment by Automated count0-8[facility] Medical CenterKetones Test strip Ql (U)Ordered By: [facility] on 11-19-2024 Ketones Ql (U)Ketones [Presence] in Urine by Test stripSt. Joseph'S HospitalNegGrant HospitalLead, Adulton 95-38-2040Gubb-Adult Blood<1.0Ufrxtp1.0-3.4 The [facility] Baptist Physician GroupComment on above:Result Comment: Testing performed by Inductively coupled plasma/Mass Spectrometry. Analysis by inductively coupled plasma/mass spectrometry (ICP/MS) This test was developed and its performance characteristics determined by [employer]. It has not been cleared or approved by the Food and Drug Administration. Environmental Exposure: WHO Recommendation <5.0 Occupational Exposure: OSHA Lead Std 40.0 GI 30.0 Detection Limit = 1.0 Performed at: [address] [id number] Ship Laborer: Doron Redding PhD, Phone: [phone] PERFORMED BY: [address] [place] [address] PATHOLOGIST CLINICAL RESEARCH NURSE COORDINATOR ENEDELIA LAGUNAS M.D.Performed By: #### CBC, CMP wRFX A1C, LIPID #### [facility] [address] [place] [address] USALeukocyte esterase [Presence] in Urine by Test strip Ordered By: Nichomell Mayen on 17-88-4120Qoavhprzz esterase Test strip Ql (U)Leukocyte esterase [Presence] in Urine by Test stripNegativeDiley Ridge Medical CenterLeukocytes [#/area] in Urine sediment by Automated countOrdered By: Nicho Mast on 59-51-3232GND Auto (Urine sed) [#/Area]Leukocytes [#/area] in Urine sediment by Automated countHigh0-4FKettering Health PrebleLeukocytes [#/volume] corrected for nucleated erythrocytes in Blood by Automated coun Ordered By: Nicho Mast on 46-98-1248LSR corrected for nucl RBC Auto (Bld) [#/Vol] Leukocytes [#/volume] corrected for nucleated erythrocytes in Blood by Automated coun3.8-11.6FKettering Health PrebleLymphocytes Auto (Bld) [#/Vol] Ordered By: Nicho Mast on 31-49-1230Xfwuepvjhtf (Bld) [#/Vol]Lymphocytes [#/volume] in Blood by Automated count1.00-4.8[facility] Lymphocytes/100 WBC Auto (Bld)Ordered By: Nicho Mast on 48-20-9136Sahugqptgsp/100 WBC (Bld)Lymphocytes/100 leukocytes in Blood by Automated count.[facility]H Auto (RBC) [Entitic mass]Ordered By: Nicho Mast on 38-73-3401AJT (RBC) [Entitic mass]MCH [Entitic mass] by Automated count24.7-34.3 [facility] CenterMCHC Auto (RBC) [Mass/Vol]Ordered By: Nicho Mast on 27-63-5879GYBP (RBC) [Mass/Vol]MCHC [Mass/volume] by Automated count 32.0-35.0[facility] Medical CenterMCV Auto (RBC) [Entitic vol]Ordered By: Nicho Mast on 89-50-6453WQB (RBC) [Entitic vol]MCV [Entitic volume] by Automated rjiqw41-374EyudlnvrbDiley Ridge Medical CenterMonocytes Auto (Bld) [#/Vol]Ordered By: Nicho Mayen on 04-43-4161Zwlwxbwgc (Bld) [#/Vol]Automated blood monocyte count0.0-0.8[facility] CenterMonocytes/100 WBC Auto (Bld)Ordered By: Nicho Mayen on 84-26-6103Xjvnkrybu/100 WBC (Bld)Automated monocyte %.[facility] CenterMucus [Presence] in Urine by AutomatedOrdered By: Nicho Mayen on 44-73-6772Uwxis Auto Ql (U)Mucus [Presence] in Urine by AutomatedAbnormalDiley Ridge Medical CenterNeutrophils Auto (Bld) [#/Vol]Ordered By: Nicho Mayen on 04-49-7393Ckllofvlgmh (Bld) [#/Vol] Neutrophils [#/volume] in Blood by Automated count1.8-7.7FKettering Health PrebleNeutrophils/100 WBC Auto (Bld)Ordered By: Nicho Mayen on 11-19-2024 Neutrophils/100 WBC (Bld)Automated neutrophil %.[facility] Medical CenterNitrite Test strip Ql (U)Ordered By: Nicho Mayen on 58-41-1301Eisnrtj Ql (U) Nitrite [Presence] in Urine by Test stripNegativeDiley Ridge Medical CenterNo Panel InformationOrdered By: Nicho Mayen on 72-10-2719Iyxiqgjtk GFR (CKD-EPI)> 60.0 mL/MinDiley Ridge Medical CenterPharmacy Creatinine Clearance (ChemN/AFKettering Health PrebleNucleated erythrocytes [Presence] in Blood by Automated countOrdered By: Nicho Mayen on 11-19-2024 Nucleated RBC Auto Ql (Bld)Nucleated erythrocytes [Presence] in Blood by Automated count0-0.5FKettering Health PreblePlatelet mean volume Auto (Bld) [Entitic vol]Ordered By: Nicho Mast on 23-56-5765Smzemrfx mean volume (Bld) [Entitic vol]Platelet mean volume [Entitic volume] in Blood by Automated count 6.3-10.7FKettering Health PreblePlatelets Auto (Bld) [#/Vol]Ordered By: Nicho Mast on 25-98-2102Ilszrpzcb (Bld) [#/Vol]Platelets [#/volume] in Blood by Automated apvqe570-857GbsxbxkjdDiley Ridge Medical CenterPotassium [Moles/volume] in Serum or PlasmaOrdered By: Nicho Mast on 26-39-1710Rtyvlvmis [Moles/Vol] Potassium [Moles/volume] in Serum or Plasma3.5-5.1FKettering Health PrebleProtein Test strip (U) [Mass/Vol]Ordered By: Nicho Mast on 11-19-2024 Protein (U) [Mass/Vol]Protein [Mass/volume] in Urine by Test stripHighNegative [facility] CenterProtein [Mass/volume] in Serum or PlasmaOrdered By: Nicho Mast on 32-10-6871Zeypiab [Mass/Vol]Protein [Mass/volume] in Serum or Plasma6.4-8.9[facility] Medical CenterRBC Auto (Bld) [#/Vol]Ordered By: Nicho Mast on 43-01-6656KSN (Bld) [#/Vol]Erythrocytes [#/volume] in Blood by Automated countHigh3.60-5.00[facility] Medical CenterRheumatoid Factoron 33-09-2362Plctxmpfwg Factor<10.0Normal<14.0The [facility] Baptist Physician GroupComment on above:Result Comment: Performed at: - [facility] [id number] Ship Laborer: Doron Redding PhD, Phone: [phone] By: #### RA, LEAD,ADULT, JEANNETTE #### [facility] , #### ADDONUAPLUS, CRP, ESR, CBC, CMP wRFX A1C #### [facility] [address] [place] [address] USASerum or plasma albumin/globulin mass ratioOrdered By: Nicho Mast on 03-58-0106Wtxlrnx/Globulin [Mass ratio]Serum or plasma albumin/globulin mass ratioMercy Health Defiance Hospitalerum or plasma anion gap determinationOrdered By: Nicho Mast on 74-53-6231Gqrbj gap [Moles/Vol] Serum or plasma anion gap determination6.0-15.0[facility] Sodium [Moles/volume] in Serum or PlasmaOrdered By: Nicho Mast on 11-19-2024 Sodium [Moles/Vol]Sodium [Moles/volume] in Serum or Sonzda386-136OjuayxczcMercy Health Defiance Hospitalpecific gravity Test strip (U) [Rel density]Ordered By: Nicho Mast on 53-33-3068Ybmpbbhx gravity (U) [Rel density]Specific gravity of Urine by Test strip1.001-1.030[facility] Medical CenterUrea nitrogen [Mass/volume] in Serum or PlasmaOrdered By: Nicho Mast on 53-02-4110Rxqv nitrogen [Mass/Vol]Urea nitrogen [Mass/volume] in Serum or Plasma7-25D[facility] Medical CenterUrobilinogen Test strip (U) [Mass/Vol]Ordered By: Nicho Mast on 25-15-0701Agfhphqsrdgf (U) [Mass/Vol]Urobilinogen [Mass/volume] in Urine by Test stripHighNormalDiley Ridge Medical CenterWBC Auto (Bld) [#/Vol]Ordered By: Nicho Faheem on 01-55-1693FQY (Bld) [#/Vol]Leukocytes [#/volume] in Blood by Automated count3.8-11.6FKettering Health PreblepH Test strip (U)Ordered By: Nicho Mayen on 34-63-9643xF (U)pH of Urine by Test strip5.0-9.0[facility] Medical CenterIGP,APTIMA HPV,AGE GDLNon 67-65-5221DHD GDLN ACOG TESTING Note.NOMS HealthcareComment on above:TESTS RESULT FLAG UNITS REF RANGE LAB Clinician Provided Cytology Information Source.............Vagina No. of containers..01 ThinPrep Vial Age Algo ACOG Keiko... FLAG LEGEND: L-Low Normal,H-High Normal,LL-Alert Low,HH-Alert High <-Panic Low,>-Panic High,A-Abnormal,AA-Critical Abnormal Performed at: 01 =[address] [address] Renée Brothers MD, HPV APTIMANegativeNegativeNOMS HealthcareComment on above:This nucleic acid amplification test detects fourteen high- risk HPV types (16,18,31,33,35,39,45,51,52,56,58,59,66,68) without differentiation. Performed at: =[address] [id number] Ship Laborer: Renée Brothers MD, Phone: [phone] Performed at: [address] [id number] Ship Laborer: Renée Brothers MD, Phone: [phone] IGP, APTIMA HPV, RFX 16/18,45Note.NOMS HealthcareComment on above:TESTS RESULT FLAG UNITS REF RANGE LAB DIAGNOSIS: 02 NEGATIVE FOR INTRAEPITHELIAL LESION OR MALIGNANCY. Specimen adequacy: 02 Satisfactory for evaluation. Performed by: 02 June Reid, Sales Representative [employer]) . 02 Note: Note 02 The Pap smear is a screening test designed to aid in the detection of premalignant and malignant conditions of the uterine cervix. It is not a diagnostic procedure and should not be used as the sole means of detecting cervical cancer. Both false-positive and false-negative reports do occur. Test Methodology: Note 02 This liquid based ThinPrep(R) pap test was screened with the use of an image guided system. HPV Genotype Reflex Note 02 Criteria not met, HPV Genotype not performed. FLAG LEGEND: L-Low Normal,H-High Normal,LL-Alert Low,HH-Alert High <-Panic Low,>-Panic High,A-Abnormal,AA-Critical Abnormal Performed at: 02 [address] [facility] [address] [address] Renée Brothers MD, SPATULA-[facility] TOMOSYNTHESIS SCREENING BIon 19-24-[place]194[place], [place] [address] Mammography Report Signed Patient: DARA CONCEPCION MR#: [id number] : 1980 Acct:[id number] Age/Sex: 43 / F ADM Date: 07/09/24 Loc: MAMMO Attending Dr: Nahun Argueta D.O. Ordering Physician: Nahun Argueta D.O. Results: Date of Service: 07/09/24 Follow Up: Procedure(s): MM tomosynthesis screening BI Accession Number(s): [id number] cc: Nahun Argueta D.O.; Nicho Mayen D.O. Patient Name: DARA CONCEPCION MR#: [id number] : 1980 Exam Date: 07/09/2024 Ordering Doctor: DR Nahun Argueta . RADIOLOGY REPORT PROCEDURE: MM TOMOSYNTHESIS SCREENING BI COMPARISON: MG MAMM SCREEN 3D JOE CAD, 12/18/2022. INDICATIONS: Screening Calculator Name NCI Breast Cancer Risk Assessment Tool 5 Year Breast Cancer Risk 0.60% Lifetime Breast Cancer Risk 8.80% Personal Breast Cancer No Personal Ovarian Cancer No Treatments None Family Cancers None LOCATION: [facility] BREAST COMPOSITION: The breasts are heterogeneously dense,which may obscure small masses. FINDINGS: DIAGNOSTIC CATEGORY 2--BENIGN FINDING. NO CHANGE FROM COMPARISON. Scattered benign-appearing calcifications are present. Scattered benign-appearing lymph nodes are present. RIGHT BREAST: No significant suspicious finding. LEFT BREAST: No significant suspicious finding. RECOMMENDATIONS: ROUTINE MAMMOGRAM AND CLINICAL EVALUATION IN 12 MONTHS. PLEASE NOTE: A NORMAL MAMMOGRAM DOES NOT EXCLUDE THE POSSIBILITY OF BREAST CANCER. A CLINICALLY SUSPICIOUS PALPABLE LUMP SHOULD BE BIOPSIED. Dictated by: Anay Brown MD on 07/09/2024 at 07:51 Approved by: Anay Brown MD on 07/09/2024 at 07:52 Dictated By: Anay Brown M.D. Signed By: 07/09/24 0753 DD/ 075 TD/TT: Rewards Consultant:TBHRadiology, Radiologist, - 07/09/2024 [place] [address] Mammography Report Signed Patient: DARA CONCEPCION MR#: [id number] : 1980 Acct:[id number] Age/Sex: 43 / F ADM Date: 07/09/24 Loc: MAMMO Attending Dr: Nahun Argueta D.O. Ordering Physician: Nahun Argueta D.O. Results: Date of Service: 07/09/24 Follow Up: Procedure(s): MM tomosynthesis screening BI Accession Number(s): [id number] cc: Nahun Argueta D.O.; Nicho Mayen D.O. Patient Name: DARA CONCEPCION MR#: [id number] : 1980 Exam Date: 07/09/2024 Ordering Doctor: DR Nahun Argueta . RADIOLOGY REPORT PROCEDURE: MM TOMOSYNTHESIS SCREENING BI COMPARISON: MG MAMM SCREEN 3D JOE CAD, 12/18/2022. INDICATIONS: Screening Calculator Name NCI Breast Cancer Risk Assessment Tool 5 Year Breast Cancer Risk 0.60% Lifetime Breast Cancer Risk 8.80% Personal Breast Cancer No Personal Ovarian Cancer No Treatments None Family Cancers None LOCATION: [facility] BREAST COMPOSITION: The breasts are heterogeneously dense,which may obscure small masses. FINDINGS: DIAGNOSTIC CATEGORY 2--BENIGN FINDING. NO CHANGE FROM COMPARISON. Scattered benign-appearing calcifications are present. Scattered benign-appearing lymph nodes are present. RIGHT BREAST: No significant suspicious finding. LEFT BREAST: No significant suspicious finding. RECOMMENDATIONS: ROUTINE MAMMOGRAM AND CLINICAL EVALUATION IN 12 MONTHS. PLEASE NOTE: A NORMAL MAMMOGRAM DOES NOT EXCLUDE THE POSSIBILITY OF BREAST CANCER. A CLINICALLY SUSPICIOUS PALPABLE LUMP SHOULD BE BIOPSIED. Dictated by: Anay Brown MD on 07/09/2024 at 07:51 Approved by: Anay Brown MD on 07/09/2024 at 07:52 Dictated By: Anay Brown M.D. Signed By: 07/09/24 0753 DD/ 075 TD/TT: Rewards Consultant: [facility] CenterRadiology Study observation (narrative)[facility] TOMOSYNTHESIS SCREENING BIOrdered By: Radiologist Radiology on 20-50-2646CSZJ [employer] Work Phone: cbc AUTO DIFFon 10-86-2084WKXO #0.0 103/ulNormal 0.0-0.1Summa HealthComment on above:Performed By: #### CBC #### [facility] [address] [address] [address] Christopher ArzolaBasophils/100 WBC (Bld)0.4 %Normal0.2-2.0[facility] Comment on above:Performed By: #### CBC #### [facility] [address] [address] [address] Christopher Foster #0.1 103/ulNormal0.0-0.7The [facility] Medical CenterComment on above: Performed By: #### CBC #### [facility] [address] [address] [address] Christopher Cardonaosinophils/100 WBC (Bld)2.3 %Normal0.9-7.0[facility] Comment on above:Performed By: #### CBC #### [facility] [address] [address] [address] Christopher Cardonarythrocyte distribution width (RBC) [Ratio]12.8 %Tpqodc66.0-15.0 [facility] Medical CenterComment on above:Performed By: #### CBC #### [facility] [address] [place] [address] Dr. Christopher ArzolaHematocrit (Bld) [Volume fraction]40.8 %Oayxkj03.0-48.0The [facility] Medical CenterComment on above:Performed By: #### CBC #### [facility] [address] [place] [address] Dr. Christopher ArzolaHemoglobin (Bld) [Mass/Vol]13.8 g/uBDfxdmm58.0-16.0The [facility] CenterComment on above:Performed By: #### CBC #### [facility] [facility] [address] [place] [address] Dr. Christopher Taveras #0.02 10e3/ulNormal0.00-0.03The [facility] CenterComment on above:Performed By: #### CBC #### [facility] [address] [place] [address] Dr. Christopher Taveras %0.4 %Normal0.0-0.5The [facility] CenterComment on above: Performed By: #### CBC #### [facility] [address] [place] [address] Dr. Christopher RaoH #1.1 103/ulCritically low1.2-3.8The [facility] Comment on above:Performed By: #### CBC #### [facility] [address] [place] [address] Dr. Christopher Buenrostromphocytes/100 WBC (Bld)20.9 %Cesxkh62.5-60.0The [facility] CenterComment on above:Performed By: #### CBC #### [facility] [address] [place] [address] Dr. Christopher GrayUAL DIFF REQNONormalThe [facility] Medical CenterComment on above: Performed By: #### CBC #### [facility] [address] [address] [address] Christopher Au (RBC) [Entitic mass]29.6 cnPmajqi83.7-34.0The [facility] CenterComment on above:Performed By: #### CBC #### [facility] [address] [place] [address] Dr. Christopher Au (RBC) [Mass/Vol]33.8 g/bHSyltpg07.9-35.2The [facility] HospitalComment on above:Performed By: #### CBC #### [facility] [address] [place] [address] Dr. Christopher Au (RBC) [Entitic vol]87.6 gPSxljmj00.0-99.0The [facility] CenterComment on above:Performed By: #### CBC #### [facility] [address] [place] [address] Dr. Christopher Gaviria #0.4 103/ulNormal0.3-0.8The [facility] CenterComment on above:Performed By: #### CBC #### [facility] [address] [place] [address] Dr. Christopher Pepperocytes/100 WBC (Bld)6.9 %Normal1.7-12.0The [facility] Comment on above:Performed By: #### CBC #### [facility] [address] [place] [address] Dr. Christopher Keene #3.6 103/ulNormal1.4-6.5The [facility] CenterComment on above:Performed By: #### CBC #### [facility] [address] [place] [address] Dr. Christopher Raoutrophils/100 WBC (Bld)69.1 %Ezlkxv35.0-75.0The [facility] CenterComment on above:Performed By: #### CBC #### [facility] [address] [place] [address] Dr. Christopher Mccarthy mean volume (Bld) [Entitic vol]9.5 fLNormal9.5-13.5The [facility] on above:Performed By: #### CBC #### [facility] [address] [place] [address] Dr. Christopher ArzolaPLT230 103/zbLpnssa506-083Zdh [facility] on above: Performed By: #### CBC #### [facility] [address] [place] [address] Dr. Christopher ArzolaRBC4.66 106/ulNormal4.20-5.40The [facility] CenterComchildren[facility] on above:Performed By: #### CBC #### [facility] [address] [place] [address] Dr. Christopher ArzolaWBC5.2 103/ulNormal4.0-11.0The [facility] on above: Performed By: #### CBC #### [facility] [address] [place] [address] Dr. Christopher ArzolaFREE T4on 64-48-1837Srar T4 [Mass/Vol]1.06 ng/dLNormal0.76-1.46 The [facility] on above:Performed By: #### FT4 #### [facility] [address] [place] [address] Dr. Christopher ArzolaGLYCOHEMOGLOBIN A1Con 73-38-0935MRV RECOMMENDATIONSEE BELOWNormal [facility] on above:Result Comment: ADA RECOMMENDED LIMIT 4.0 - 6.0 ADA THERAPEUTIC TARGET < 7.0 ACTION SUGGESTED > 7.0Performed By: #### A1C #### [facility] [address] [place] [address] Dr. Christopher ArzolaGlucose [Mass/Vol]97 mg/dLNormalThMetroHealth Main Campus Medical Center on above:Performed By: #### A1C #### [facility] [address] [place] [address] Dr. Christopher ArzolaHbA1c (Bld) [Mass fraction]5.0 %Normal4.5-6.2[facility] on above:Performed By: #### A1C #### [facility] [address] [place] [address] Dr. Christopher ArzolaMG MAMM SCREEN 3D JOE CADon [id number] MAMM SCREEN 3D JOE CAD Patient: DARA CONCEPCION Exam Date: 12/18/2022 : 1980 Gender:F Ordering : REINA CHÁVEZ . Admission #: [id number] Family : Order #: [id number] CLICK HERE TO VIEW EXAM RADIOLOGY REPORT PROCEDURE: MAMMOGRAM SCREENING 3D BILATERAL CAD COMPARISON: None. INDICATIONS: Screening mammography Calculator Name NCI Breast Cancer Risk Assessment Tool 5 Year Breast Cancer Risk 0.60% Lifetime Breast Cancer Risk 8.90% Personal Breast Cancer No Personal Ovarian Cancer No Treatments None Family Cancers None LOCATION: [facility] BREAST COMPOSITION: Heterogeneously dense,which may obscure small [...] by: Bryon Eugene M.D. on 12/18/2022 at 13:15NormalSumma HealthPREG QUANT HCGon 49-25-5115BQJ QUANT<1NKindred Hospital LimaComment on above:Performed By: #### TSH, PREGQNT #### [facility] [address] [place] [address] Dr. Christopher ArzolaHCG Green Cross HospitalComment on above: Result Comment: 5-50 0.2-1 WEEK 50-500 1-2 WEEKS 100-5,000 2-3 WEEKS 500-10,000 3-4 WEEKS 1,000-50,000 4-5 WEEKS 10,000-100,000 5-6 WEEKS 15,000-200,000 6-8 WEEKS 10,000-100,000 2-3 MONTHSPerformed By: #### TSH, PREGQNT #### [facility] [address] [place] [address] Dr. Christopher ArzolaPROTIMEon 29-52-0701RXJ Coag (PPP) [Relative time]{INR}NormalThe [facility] Medical CenterComment on above:Performed By: #### PT, PTT #### [facility] [address] [place] [address] Dr. Christopher Sweet [facility] Washington TownshipComment on above:Result Comment: DESIRED INR: 2.0 - 3.0 CONDITIONS NOT LISTED BELOW 2.5 - 3.5 FOR PROSTHETIC HEART VALVE REPLACEMENT 2.5 - 3.5 RECURRENT THROMBOSIS Performed By: #### PT, PTT #### [facility] [address] [place] [address] Dr. Christopher Corley Coag (PPP) [Time]9.6 sNormal9.0-11.6The [facility] Comment on above:Performed By: #### PT, PTT #### [facility] [address] [place] [address] Dr. Christopher Matos 83-70-9464hTWZ Coag (Bld) [Time]30.1 zAjjzqm58.3-36.2Summa HealthComment on above:Performed By: #### PT, PTT #### [facility] [address] [place] [address] Dr. Christopher Montgomery 19-68-4821DAY8.159 uIU/mLNormal0.358-3.740The [facility] CenterComchildren's hospital of mich[facility] on above:Performed By: #### TSH, PREGQNT #### [facility] [address] [place] [address] Dr. Christopher ArzolaUS PELVIS AND TRANSVAGon 91-52-7617LB PELVIS AND TRANSVAGEXAM: Pelvic ultrasound HISTORY: . Excessive menstruation with [...] Electronically authenticated by: ANAY PEACOCK Date: 2022-12-18 08:14[facility] CenterOG PANEL 2: 30 to 65on 12-13-2022..NormalThe [facility] CenterComment on above:Result Comment: Performed at: WBPerformed By: #### [id number] #### [facility] [address] [place] [address] Dr. Christopher Montemayor Gdln ACOG Bawgaeg27-23ZnousqQeoKettering Health Washington TownshipComment on above:Performed By: #### [id number] #### [facility] [address] [address] [address] Christopher ArzolaDIAGNOSIS:CommentNoKettering Health Washington TownshipComchildren's hospital of michigan on above: Result Comment: NEGATIVE FOR INTRAEPITHELIAL LESION OR MALIGNANCY. Performed at: WBPerformed By: #### [id number] #### [facility] [address] [place] [address] Dr. Christopher Rivas AptimaNegativeNormalNegativeSumma HealthComment on above:Result Comment: This nucleic acid amplification test detects fourteen high-risk HPV types (16,18,31,33,35,39,45,51,52,56,58,59,66,68) without differentiation. Performed at: =GPerformed By: #### [id number] #### [facility] [address] [place] [address] Dr. Christopher Rivas Genotype ReflexCommentNoKettering Health Washington TownshipComment on above:Result Comment: Criteria not met, HPV Genotype not performed. Performed at: WBPerformed By: #### [id number] #### [facility] [address] [place] [address] Dr. Christopher ArzolaMethodology:CTIMClermont County Hospital on above: Result Comment: The Thin Prep(R) Seal Extrusion Operator was unable to read this specimen. Therefore a manual review was performed. Performed at: WBPerformed By: #### [id number] #### [facility] [address] [place] [address] Dr. Christopher ArzolaNote:CommentClermont County Hospital on above:Result Comment: The Pap smear is a screening test designed to aid in the detection of premalignant and malignant conditions of the uterine cervix. It is not a diagnostic procedure and should not be used as the sole means of detecting cervical cancer. Both false-positive and false-negative reports do occur. . Performed at: WBPerformed By: #### [id number] [address] [address] Dr[address] Christopher ArzolaPerformed by:CommentClermont County Hospital on above: Result Comment: [place], Sales Representative [employer] ([employer]) Performed at: Performed By: #### [id number] #### [address] [address] Dr[address] Christopher ArzolaSpecimen adequacy:CommentClermont County Hospital on above:Result Comment: Satisfactory for evaluation. Endocervical and/or squamous metaplastic cells (endocervical component) are present. Performed at: WBPerformed By: #### [id number] #### [facility] [address] [place] [address] Dr. Christopher ArzolaCOVID + FLU Quick Testingon 65-43-1788FJDQ-CoV-2 (COVID-19) RNA BREANNA+probe Ql (Unsp spec)NegativeGayville AI Patents Other COVID + FLU Quick TestingNegativeGayville AI Patents Other Vital Signs Date TimeVital SignValuePerforming JmamyjyydRealelqq95-13-9335 08:41-0400Body .1 cmMatthew Miranda DO Work Phone: [phone] [place], [place] 5706710-16-2025 08:41-0400 Body mass index (BMI) [Ratio]37.8 kg/w7Zqbkxbk Miranda DO Work Phone: 1(216)[address] [place], [place] 5706710-16-2025 08:41-0400 Body .96 kgMatthew Miranda DO Work Phone: 1(668)[address] [place], [place] 5706710-16-2025 08:41-0400 Diastolic blood ggmihlfh47 mm[Hg]Jordon Jean DO Work Phone: 1(491)[address] [place], [place] 5706710-16-2025 08:41-0400 Heart rate91 /minMatthew Miranda DO Work Phone: 1(318)[address] [place], [place] 5706710-16-2025 08:41-0400 SaO2% (BldA) [Mass fraction]97 %Jordon Jean DO Work Phone: 1(368)[address] [place], [place] 5706710-16-2025 08:41-0400 Systolic blood ldzsfitr137 mm[Hg]Jordon Jean DO Work Phone: 1(268)[address] [place], [place] 5706707-02-2025 11:25-0400 Body aboimv297.1 cmEric Mast DO Work Phone: 1(060)[address] [place], [place] 3109407-02-2025 11:25-0400 Body mass index (BMI) [Ratio]35.4 kg/m2Eric Mast DO Work Phone: 1(900)[address] [place], [place] 3109407-02-2025 11:25-0400 Body mfuhgl96.61 kgEric Mast DO Work Phone: 1(547)3-[address] [place], [place] 1407007-02-2025 11:25-0400 Diastolic blood uulozdve25 mm[Hg]Nicho Mast DO Work Phone: 1(347)2-[address] [place], [place] 1407007-02-2025 11:25-0400 Heart rate90 /minEric Mast DO Work Phone: 1(607)8-[address] [place], [place] 1407007-02-2025 11:25-0400 SaO2% (BldA) [Mass fraction]97 %Nicho Mast DO Work Phone: 1(422)[facility] [place], [place] 1407007-02-2025 11:25-0400 Systolic blood natgpitu448 mm[Hg]Nicho Mast DO Work Phone: 1(606)[address] [place], [place] 3109403-13-2025 15:30-0400 Body qfccdrgloaj72.8 [degF]Nicho Mast DO Work Phone: 1(445)[address] [place], [place] 5706703-13-2025 15:30-0400 Body wcyhkl96.51 kgEric Mast DO Work Phone: 1(438)[address] [place], [place] 5706703-13-2025 15:30-0400 Diastolic blood wsykugap95 mm[Hg]Nicho Mast DO Work Phone: 1(701)[address] [place], [place] 5706703-13-2025 15:30-0400 Systolic blood buqytqjn871 mm[Hg]Nicho Mast DO Work Phone: 1(489)[address] [place], [place] 5706701-27-2025 14:19-0500 Body odgegu408.1 cmEric Mast DO Work Phone: 1(960)[address] [place], [place] 5706701-27-2025 14:19-0500 Body mass index (BMI) [Ratio]36.1 kg/m2Eric Mast DO Work Phone: 1(452)[address] [place], [place] 5706701-27-2025 14:19-0500 Body bxuqicizpuh29.5 [degF]Nicho Mast DO Work Phone: 1(062)[address] [place], [place] 5706701-27-2025 14:19-0500 Body ijwiax31.54 kgEric Mast DO Work Phone: 1(865)[address] [place], [place] 5706701-27-2025 14:19-0500 Diastolic blood ipgwfjac12 mm[Hg]Nicho Mast DO Work Phone: 1(877)[address] [place], [place] 5706701-27-2025 14:19-0500 Heart ghwi516 /minEric Mast DO Work Phone: [facility]01-27-2025 14:19-0500 SaO2% (BldA) [Mass fraction]96 %Nicho Mast DO Work Phone: [facility]01-27-2025 14:19-0500 Systolic blood utlxflyz451 mm[Hg]Nicho Mast DO Work Phone: [facility]12-02-2024 09:29-0500 Body llaybf773.1 cmAlakhwinder Luebbering PA Work Phone: [facility] CenterIwrzbmmlsh47-16-5240 09:29-0500Body mass index (BMI) [Ratio]37.44 kg/m2Amy Saira PA Work Phone: [facility] CenterDzirpmdkhm85-59-6467 09:29-0500Body .06 kgAmy Luebbering PA Work Phone: [facility] CenterYvyshdysoo79-87-5289 09:29-0500Diastolic blood mm[Hg]Zainab Saira PA Work Phone: noDC Ofofrlkhrt75-44-9256 09:29-0500Systolic blood detngksw036 mm[Hg]Zainab Saira PA Work Phone: [facility] CenterVktvovrkcj19-61-6275 08:00-0500Body driqen092.37 cmEric Mast Other [employer] Other 01-29-2024 08:00-0500Body mass index (BMI) [Ratio] 36.29 kg/m2Eric Mast Other [employer] Other 01-29-2024 08:00-0500Body .5 [degF]Nicho Mast Other [employer] Other 01-29-2024 08:00-0500Body zhssaw840.47 kgEric Mast Other [employer] Other 01-29-2024 08:00-0500Diastolic blood ffpefief68 mm[Hg] Nicho Mast Other [employer] Other 01-29-2024 08:00-0500Respiratory rate18 /minEric Mast Other [employer] Other 01-29-2024 08:00-2838WoR6% (BldA) [Mass fraction]98 % Nicho Mast Other [employer] Other 01-29-2024 08:00-0500Systolic blood giwnyetj465 mm[Hg] Nicho Mast Other [employer] Other 01-05-2022 16:30-0500Body cdepxl314.37 cmEric Mast Other [employer] Other 01-05-2022 16:30-0500Body mass index (BMI) [Ratio] 37.46 kg/m2Eric Mast Other [employer] Other 01-05-2022 16:30-0500Body dddqvmhiser67 [degF]Nicho Mast Other [employer] Other 01-05-2022 16:30-0500Body .69 kgEric Mast Other [employer] Other 01-05-2022 16:30-0500Diastolic blood idaaniup46 mm[Hg] Nicho Mast Other [employer] Other 01-05-2022 16:30-0500Respiratory rate18 /minEric Mast Other [employer] Other 01-05-2022 16:30-8381ZmW4% (BldA) [Mass fraction]99 % Nicho Mast Other [employer] Other 01-05-2022 16:30-0500Systolic blood ecjlltlh119 mm[Hg] Nicho Mast Other [employer] Other Encounters Encounter DateEncounter TypeCare ProviderFacilityStart: 07-08-2025 End: 19-88-8114Lagbmzc encounter procedureMadevante Jean DO-[facility]art: 07-08-2025 End: 20-40-9908aswrrijsicImvnlcy N Widmer DO Work Phone: -[facility]: 07-08-2025 Encounter for general adult medical examination without abnormal findingsMadevante JeanAdventhealth Tampa Physician GroupStart: 06-23-2025 End: 03-46-1871bqqeszfmmmTqddnhb N Widmer DO Work Phone: [facility] Work Phone: Start: 06-23-2025 End: 18-75-6669Nbmnzpx encounter procedureMadevante Jean DO-[facility] Work Phone: Start: 06-23-2025 End: 01-89-7325Mjtuulyp examinationMadevante Jean [facility]tart: 03-09-2025 End: 48-14-8579kefsohfcbxUfyo Mast DO Work Phone: [facility] Work Phone: Start: 03-09-2025 End: 64-22-1847Qdftcwt encounter procedureLuke Stone TECHNICAL SUPPORT 1 SOFTWARE ENGINEER-[facility] Work Phone: Start: 11-19-2024 End: 75-25-3666Teqdikw encounter procedureEric Mast DO Work Phone: [facility]art: 11-19-2024 End: 46-94-0778gmolnrmhwnMcsl Mast DO Work Phone: [facility] Work Phone: Start: 11-18-2024 End: 80-89-6882Pkfbhsy encounter procedureEric Mast DO Work Phone: [facility] Work Phone: Start: 10-04-2024 End: 77-28-8884Fholiqn encounter procedureEric Mast DO Work Phone: [facility] Work Phone: Start: 08-09-2024 End: 57-28-2147Pnxnxl flowsheetZainab HUANG Work Phone: [facility] OBStart: 08-09-2024 End: 93-55-1267Nxbwil flowsheetZainab HUANG Work Phone: [facility] OBStart: 08-09-2024 End: 99-86-6527Wybygnfpv Result EncounterZainab HUANG Work Phone: [facility] External Department UnsolicitedStart: 08-09-2024 End: 16-19-9751Jdrzcie encounter procedureZainab HUANG Work Phone: [facility] Work Phone: Start: 08-09-2024 End: 84-96-8841Piktzjzv preventive med est patient 40-64yrsAmy Saira HUANG Work Phone: [facility] OBComment on above:Well woman exam with routine gynecological exam; Breast cancer screening by mammogramStart: 08-09-2024 End: 64-80-4120tknwdaeaukCJO RAMEYNot AvailableStart: 07-09-2024 End: 53-82-4402Akvbpuzpy Result EncounterCorey Kendall DO Work Phone: [facility] External Department UnsolicitedStart: 07-09-2024 End: 03-51-1915Hykwfiiyv Result EncounterCorey Kendall DO Work Phone: [facility] External Department UnsolicitedStart: 06-10-2024 Patient encounter statusEric Mast DO Work Phone: [facility] Hospitaltart: 10-06-2023 End: 39-20-2180bjtarubhajQnel Mast Other [employer] Other Start: 29-08-6271Rpimja outpatient visit 15 minutes Nicho MastFPG [facility]uskyStart: 09-11-2023 End: 22-42-9903vecwtcbkhgPzvg Mast Other [employer] Other Start: 60-29-9656Zkxpyzhwj encounterEric MastFPG [facility] CareStart: 08-25-2023 End: 10-99-4006hkzrudutpxJpag Mast Other [employer] Other Start: 50-10-1129Evgsiujug encounterEric MastFPG [facility] Medicine SandfaberyStart: 12-18-2022 End: 37-70-8376ianinflijtIPX SAIRA .Facility:N9Rprui: 12-09-2022 End: 66-44-5837efkykuhsyyMOD SAIRA .Facility:K0Dlnob: 08-19-2022 End: 96-80-3863jwsudqcudxJavw Mast Other [employer] Other Start: 15-19-9866Ndvfrrgtc encounterEric MastFPG [facility] SandfaberyStart: 09-17-2021 End: 07-98-0789vmbcwjobtgCdca Mast Other [employer] Other Start: 47-18-9861Edxbgf outpatient visit 10 minutes Nicho MastFPG [facility] [place]kyStart: 09-12-2021 End: 57-73-0327exawttneduGjgi Mast Other [employer] Other Start: 84-18-6471Exdlxb outpatient visit 15 minutes Nicho MastFPG [facility] Joseluis Procedures DateProcedureProcedure DetailPerforming ClinicianStart: 11-23-7625WPF,APTIMA HPV,AGE GDLNZainab HUANG Work Phone: Start: 17-53-3934MI TOMOSYNTHESIS SCREENING BICorey Kendall DO Work Phone: Start: 29-37-2853RwyrbsmptgtQjh Ramey PA Work Phone: Start: 39-24-6392Fpikhydxfwp observation [Identifier] in Cervix by Cyto Kizzy HUANG Work Phone: Plan of Treatment DateCare ActivityDetailAuthorStart: 75-19-5868Tubjzmoca for malignant neoplasm of cervixNODC HealthcareStart: 08-15-2025 End: 59-11-9711Owwryuf encounter procedureNOMS BCP OBStart: 77-09-9327Ljiuptykr for malignant neoplasm of breastMammogramNOMS HealthcareStart: 11-19-2024 Rheumatoid factor [Units/volume] in Serum or PlasmaMercy Health Defiance Hospitaltart: 11-19-2024 End: 51-96-8107IctocmfxuMercy Health Defiance Hospitaltart: 08-09-2024 End: 30-93-2086TO Breast - bilateral ScreeningBilateral screening mammogram Imaging Routine Breast cancer screening by mammogram Expected: 08/09/2024 (Approximate), Expires: 10/10/2025[facility] Work Phone: comment on above:Expected: 08/09/2024 (Approximate), Expires: 10/10/2025Start: 08-09-2024 End: 22-11-4805Sqjtcaf encounter itldacchj06/02/2024 9:00 AM EST Office Visit [facility] [address] [place] [address] Zainab Chávez PA [address] [place] [address] ArrivedMAYERS MEMORIAL H[facility]PITAL DISTRICT OBComment on above:ArrivedStart: 05-09-2024 Influenza vaccinationInfluenza Vaccine (#1)[facility] HealthcareHomogenous nuclear Ab pattern [Titer] in [facility] HospitalLead [Presence] in [facility] Memorial HospitalNuclear Ab [Titer] in [facility] HospitalTHIN PREP TIS PAP AND HR HPV DNATHIN PREP TIS PAP AND HR HPV DNA Pathology and Cytology Routine Well woman exam with routine gynecol ogical exam Ordered: 08/09/2024[facility] HealthcareComment on above:Ordered: 08/09/2024[facility] Immunizations Immunization DateImmunizationNotesCare KnjdnznlVpeoycoy70-32-9751ODFFB-40 Vaccine Pfizer - Documentation Purposes OnlyEric Mast Other [address] [place], [place] 4884904-16-2021COVID-19 Vaccine Pfizer - Documentation Purposes OnlyEric Mast Other [address] [place], [place] 4884910-01-2020influenza, injectable, quadrivalent, preservative freeEric Mast Other [address] [place], [place] 6813210-01-2020influenza virus vaccine, unspecified formulationZainab HUANG Work Phone: [facility] CenterGccuuawrez98-40-5839kbaclpmfy, seasonal, injectableEric Mast Other [address] [place] [address] Payers DatePayer CategoryPayerPolicy [id number] Health InsuranceGENERIC COMMERCIAL Member Subscriber Plan / Payer (Effective 2024-Present) Name: Jamey Dara Fiona Relation to Subscriber: Self Name: Dara Concepcion Payer ID: Not on file Group ID: [id number] Type: Not on file Address: [address] [place] [id number] County Memorial HospitalBC Member Subscriber Plan / Payer (Effective 2021-Present) Name: Dara Concepcion Relation to Subscriber: Self Name: Dara Concepcion PayerID: Not on file Type: Not on file Address: [address] [place] [id number] [id number] Good Samaritan [id number] Health Insurance [id number] Social History DateTypeDetailFacilityUnknown if ever smokedNowestern [facility] [employer] Other Start: 07-30-2023 End: 45-59-6046Vbq Assigned At [facility] HealthcareStart: 05-10-2023 End: 10-04-1690Vpygcqi smoking status NHISNever smoked tobaccoNODC Healthcare Start: 31-41-5256Nxcflgg use and exposureSmokeless tobacco non-userNODC HealthcareStart: 08-04-2023 End: 49-91-7003Gqgqfgtkj beverage intakeCurrent drinker of alcohol (finding)[facility] HealthcareStart: 07-30-2023 End: 93-05-5143Spnwqyg of Social functionNOMS HealthcareHow often to you have a drink containing alcohol?2-4 times a monthNODC HealthcareHow many standard drinks containing alcohol do you have on a typical day?1 or 2NOMS HealthcareHow often do you have 6 or more drinks on 1 occasion?NeverNODC HealthcareStart: 71-24-9237Jonclzx CommentAlcohol: 1 or 2 drinks on a typical day / 2 to 4 times a month. Caffeine: more than 4 cups per dayACADIA HEALTHCARE HealthcareStart: 49-04-6247Rsv assigned at birthNot on fileACADIA HEALTHCARE HealthcareStart: [id number] (finding) [facility]: [id number] [facility]: [id number] Healthcare Clinical Notes 09-12-2021 to 06-23-2025 Note Date & [id number] Evaluation note* Diagnosis Onset Date Resolution Status Admit Date Primary hypertension chronicOctober 2024 8:29amImpaired concentrationnoneactiveOctober 2024 8:29amEncounter for routine history and physical examination of adult noneactiveOctober 2024 8:29am [facility] Work Phone: 1(375) 992-249607-02-2025 Evaluation note* Diagnosis Onset Date Resolution Status Admit Date Urticaria acuteJuly 2nd, 2025 11:14amRash of necknoneactiveJuly 2024 11:14am [facility] Work Phone: 1(205) 162-704901-27-2025 Evaluation note* Diagnosis Onset Date Resolution Status Admit Date Irritation of both eyes acuteJanuary 2024 2:13pmEpiscleritisacuteMarch 2024 3:22pmPrimary hypertensionacuteMarch 2024 3:22pmUrticariaacuteMarch 2024 3:22pm [facility] Work Phone: 1(507) 605-225212-02-2024 History of Present illness Narrative* REINA Mcclendon - 08/09/2024 9:00 AM EST Reason for Appointment: Patient ID: Dara Concepcion [...] Date History of medical problems 2006 Hypertension ([facility] HISTORY PAST MEDICAL HISTORY SOCIAL HISTORY Past Medical History: Diagnosis Date History of medical problems 2006 Toxemia Hypertension ([facility]) Social History Tobacco Use Smoking status: Never Smokeless tobacco: Never Substance Use Topics Alcohol use: Yes Comment: Alcohol: 1 or 2 drinks on a typical day / 2 to 4 times a month. Caffeine: more than 4 cupsper day Drug use: Never FAMILY HISTORY Family [...] nursing note reviewed. Exam conducted with a bookbinding machine operator present. Vitals: Estimated body mass index is [...] behalf of: REINA Mcclendon documented in this encounterNortheast Regional Medical [id number] Evaluation note* Encounter Date Diagnosis Assessment Notes Treatment Notes Treatment Clinical Notes Sep, Hypertension, essential (ICD-10 - I10) BP controlled, continue Rx. We will review her preoperative labs from [facility]. Work on weight loss. Recheck in a year, sooner if problems [employer] Other 10-12-2023 History general Narrative - Reported* Type Description Date Medical History Hypertension Surgical Historyessure sterilization [id number] HistoryHysterectomy 06/19/23Hospitalization HistoryNo Hospitalization history information [employer] Other 01-10-2022 Evaluation note* Encounter Date Diagnosis Assessment Notes Treatment Notes Treatment Clinical Notes Sep, Exposure to COVID-19 virus (ICD- 10 - Z20.822) COVID test is negative. Continue supportive care, warning signs reviewed. She is fully vaccinated so she was advised that she may return to work as long as she wears a mask. Call if problems arise. [employer] Other 01-05-2022 Evaluation note* Encounter Date Diagnosis Assessment Notes Treatment Notes Treatment Clinical Notes Sep, Cough (ICD-10 - R05.9) Her exam is unremarkable, lungs are completely clear. I do not hear any forced expiratory wheezing.She admits some generalized malaise with the cough, discussed possible viral etiology. I offered totest her again for Covid and also influenza, but she declined and I think that is reasonable since she tested negative chest yesterday. I will send an Rx for Edgar Patel. Discussed possibility oflisinopril induced cough, but that seems much less likely given her fatigue and malaise. Try Mucinex as well. Supportive care, warning signs reviewed. Contact me if not improved in the next few days,call with problems. [employer] Other Evaluation noteNo InformationNort [employer] Patents Other Evaluation note* Diagnosis Well woman exam with routine gynecological exam Routine gynecological examination Breast cancer screening by mammogram documented in this encounter [facility]Evaluation note* Diagnosis Onset Date Resolution Status Admit Date Urticaria acuteJuly 2024 11:14am [facility] Work Phone: Evaluation note* Diagnosis Onset Date Resolution Status Admit Date Primary hypertension chronicOctober 2024 8:29amImpaired concentrationnoneactiveOctober 2024 8:29amEncounter for routine history and physical examination of adult noneactiveOctober 2024 8:29am [facility] Work Phone: History general Narrative - Reported* Type Description Date Medical History Hypertension Surgical Historyessure sterilization [id number]/13Hospitalization HistoryNo Hospitalization history information [place] [employer] Other Reason for referral (narrative)No reason for referral information availablePremier Health [facility] Work Phone: Summary Purpose Family History No Family History Records Found Relationship Condition Age at Onset Recorded Date/T payal father Hypertension Unknown grandparentDeceasedUnknownDiabetes mellitusUnknownmotherHypertensionUnknown Advance Directives No Advanced Directives Records Found Advance Directive Response Recorded Date/ Time Advance Directives No July 10, 2021 1:41pm Chief Complaint and Reason for Visit Chief Complaint Admit Date AWV June 23, 2025 8 :29am I10 Z00.00 Z13.6 July 08, 2025 9 :09am Reason for Visit Admit Date Primary hypertension June 23, 2025 8:29am Impaired concentration June 23 8:29am Encounter for routine histor y and physical examination of adult June 23, 2025 8:29am Chief Complaint Admit Date eyes are bloodshot/irritated September 2:13pm talk about eye doctor appt November 18 3:22pm M25.50, H15.109, Z13.88 November 19, 2024 8:59am Reason for Visit Admit Date Irritation of both eyes October 04 2:13pm Episcleritis November 18, 2024 3:2 2pm Primary hypertension November 18, 2024 3: 22pm Urticaria November 18, 2024 3:2 2pm Chief Complaint Admit Date rash on neck March 09, 2025 11:14 am Reason for Visit Admit Date Urticaria March 09, 2025 11:14 am Chief Complaint Admit Date rash on neck March 09, 2025 11:14 am R21, L50.9 March 09, 2025 11:56 am Reason for Visit Admit Date Urticaria March 09, 2025 11:14 am Rash of neck March 09, 2025 11:14 am Chief Complaint Admit Date AWV June 23, 2025 8 :29am Additional Source Comments REASON FOR VISIT (unrecogniz ed section and content) ReasonCommentsWell Women Visit INFORMATION SOURCE (unrecogn ized section and content) DATE CREATED AUTHOR 12/23/2022 [facility] DATE CREATED AUTHOR AUTHOR'S ORGANIZ ATION 08/09/2024 [facility] EPIC DATE CREATED AUTHOR AUTHOR'S ORGANIZ ATION 07/09/2025 [facility] Care Teams (unrecognized sec tion and content) Team MemberRelationshipSpecialtyStart DateEnd Date Nicho Mayen MD [address] [place] [address] PCP - General02/05/23Team MemberRelationshipSpecialtyStart DateEnd Date Nicho Mayen MD [address] [facility] [place] [address] PCP - General02/05/23 Team Status: Active Member Role Status Dates Nicho Mayen DO Primary Care Provider Active Team Status: Inactive Member Role Status Dates Nicho Mayen DO Primary Care Provide r, Attending Provider Active Start: October 04, 2024 End: October 04, 2024 Team Status: Inactive Member Role Status Dates Nicho Mayen DO Primary Care Provide r, Attending Provider Active Start: November 18, 2024 End: November 18, 2024 Team Status: Inactive Member Role Status Dates Nicho Mayen , DO Primary Care Provide r, Attending Provider Active Start: November 19, 2024 End: November 19, 2024 Team Status: Inactive Member Role Status Dates Nicho Mast DO Primary Care Provider Active Star t: March 09, 2025 End: March 09, 2025Luke Stone , JULIO CESARNAtele ProviderActiveStart: March 09, 2025 End: March 09, 2025 Team Status: Active Member Role Status Dates Jordon Jean DO Primary Care Provider Active Team Status: Inactive Member Role Status Dates Jordon Jean DO Primary Care Provider Active Start: June 23, 2025 End: June 23, 2025Madevante Jean DOAttending ProviderActiveStart: June 23, 2025 End: June 23, 2025Team MemberRelationshipSpecialtyStart DateEnd Date Nicho Mayen DO [facility]02/05/23 Team Status: Active Member Role/Relationship Status Dates Jordon Jena , Primary Care Provider Active Team Status: Inactive Member Role/Relationship Status Dates Jordon Jean DO Primary Care Provider Active Start: June 23, 2025 End: June 23, 2025Madevante Jean DOAttending ProviderActiveStart: June 23, 2025 End: June 23, 2025 Team Status: Inactive Member Role/Relationship Status Dates Jordon Jean DO Primary Care Provider Active Start: July 08, 2025 End: July 08, 2025Jordon Jean DOAttmarie ProviderActiveStart: July 08, 2025 End: July 08, 2025 Goals (unrecognized section and content) Goals may be documented in a n alternate section FOR RECORDS PERTAINING TO PATIENTS WHO ARE [...] BE BASED ON THE PRIMARY CLINICAL RECORDS. [employer] [facility]. provides no warranty or guarantee of the accuracy or completeness of information in this document.
== END 2025-08-01 13:09 | disposition home or self-care (01) ==
LOC: MAMMO 13:09
PROVIDERS: Visit Provider Physician Assistant
DX: Z12.31 Encounter for screening mammogram for malignant neoplasm of breast (principal)
CPT/HCPCS: 77063; 77067

== ENCOUNTER 2025-08-15 15:06 | Outpatient (REF) | payer BC, OTHER, SELFPAY ==
--- OUTSIDE RECORDS SUMMARY | 2025-08-15 15:15 | XMS_ITS | CCD ---
Author Organization [facility] CliniSyor Care Team Providers Care Valet Attendant Name Role Phone Mast, Nicho Unavailable SAIRA ., ZAINAB Admitting Unavailable SAIRA ., ZAINAB Attending Unavailable SAIRA ., ZAINAB Consulting Unavailable SAIRA ., ZAINAB Admitting Unavailable SAIRA ., ZAINAB Attending Unavailable DR BRYON EUGENE Consulting Unavailable SAIRA ., ZAINAB Consulting Unavailable Anay Peacock Consulting Unavailable Mast , Nicho E Primary Care Provider [phone] ZAINAB CHÁVEZ Attending Unavailable Mast DO, Nicho Primary Care Provider Mast DO, Nicho Attending Provider Mast DO, Nicho Primary Care Provider Luke Stone APRN Attending Provider [phone] Jordon Jean DO Primary Care Provider Miranda DOJordon Attending Provider Mast DO, Nicho E Primary Care Provider Mast, Nicho Primary Care Unavailable Mast, Nicho Attending Unavailable Mast, Nicho Admitting Unavailable Mast, Nicho Primary Care Unavailable Luke Stone Admitting Unavailable Luke Stone Attending Unavailable Jordon Jean Admitting Unavailable Jordon Jean Primary Care Unavailable Jordon Jean Attending Unavailable Allergies Allergy ClassificationReported Allergen(s)Allergy TypeDate of OnsetReaction(s) Facility (16 sources)AzithromycinDrug Xdvhnpc98-95-5420Mafnb, UnknownNOMS Healthcare Work Phone: (7 sources)Cefaclor; Translations: [Ceclor]Drug Xatsmxe96-89-9651IsbosfgUqm [facility] Repository (1 source)AzithromycinDrug Msifwqg89-40-3277[facility]Mer[facility] (10 sources)CefaclorDrug Xrrxohz89-62-5919AoybuDAWP Healthcare (1 source)AzithromycinDrug Onploqw93-30-9451ZcgfewimiGood Samaritan Hospital Repository (1 source)CefaclorDrug Djdrkps08-96-5509IliuihpgxGood Samaritan Hospital Repository Medications Current Medications MedicationDrug Class(es)DatesSig (Normalized)Sig (Original)24 hr buPROPion hydrochloride 150 mg extended release oral tablet (2 sources)AminoketoneStart: 30-13-5462vxss 1 tablet by mouth once daily in the morningfluocinolone acetonide 0.1 mg/ml otic solution (10 sources)CorticosteroidStart: 06-10-2024 End: 14-60-7000jbalduytwkf propionate 0.05 mg/actuat metered dose nasal spray (5 sources)Corticosteroidfluticasone (Flonase Allergy Relief) 50 MCG/ACT nasal spray 1 (one) time each day at the same time.Activeibuprofen 800 mg oral tablet (10 sources)Nonsteroidal Anti-inflammatory DrugStart: 78-63-0166ajvu 1 tablet by mouth every eight hoursibuprofen 800 MG tablet Take 800 mg by mouth every 8 (eight) hours. 06/20/2023 ActiveStart: 09-06-2021 End: 70-84-0616wphm 1 tablet by mouth three times daily as needed for pain Ibuprofen 800 mg tablet Discontinued 800 MG PO Three times daily as needed for fever or pain 30 September 06, 2021 1:00am June 10, 2024 3:04pm prednisoLONE acetate 10 mg/ml ophthalmic suspension (5 sources)CorticosteroidStart: 87-89-2772Htybvccnfo-Dexamethasone 0.3-0.05 % (3 sources)take 1 drop(s) into the eye(s) twice dailyTobramycin-Dexamethasone 0.3-0.05 % 1 drop(s) Ophthalmic bid Activetriamcinolone acetonide 0.11972 mg/mg topical ointment (4 sources)CorticosteroidStart: 03-09-2025 Completed/Discontinued Medications MedicationDrug Class(es)DatesSig (Normalized)Sig (Original)atorvastatin 20 mg oral tablet (5 sources)HMG-CoA Reductase InhibitorStart: 11-24-2023 End: 90-82-5195prhg 1 tablet by mouth once dailyAtorvastatin 20 mg tablet Discontinued 20 MG PO Daily November 24, 2023 12:00am June 10, 2024 3:03pmbenzonatate 100 mg oral capsule (6 sources)Non-narcotic AntitussiveStart: 79-76-9598yynn 1 capsule by mouth three times daily as neededTessalon Perles 100 MG 1 capsule as needed Orally Three times a day Sep, Not-Taking/PRNciprofloxacin 500 mg oral tablet (11 sources)Quinolone AntimicrobialStart: 09-06-2021 End: 24-28-4372ctso 1 tablet by mouth twice dailyCiprofloxacin Hcl 500 mg tablet Discontinued 500 MG PO Twice daily September 06, 2021 1:00am June 10, 2024 3:04pm May increase tendon rupture. Avoid strenuous activity. Not safe in .hydroCHLOROthiazide 12.5 mg / lisinopril 10 mg oral tablet (20 sources)Thiazide Diuretic, Angiotensin Converting Enzyme InhibitorStart: 09-06-2021 End: 15-89-2357ipmv 1 tablet by mouth once dailyLisinopril-Hydrochlorothiazide 10-12.5 mg tablet Discontinued 1 TAB PO Daily December 06, 2024 11:27am April 19, 2025 4:30pmhydrOXYzine pamoate 25 mg oral capsule (6 sources)AntihistamineStart: 94-15-9727uphh 1 capsule by mouth every eight hours as neededhydrOXYzine Pamoate 25 MG 1-2 capsule as needed for itching Orally every 8 hrs caution drowsiness Mar, Not-Taking/PRNpolymyxin b [address]266 unt/ml / trimethoprim 1 mg/ml ophthalmic solution (5 sources)Dihydrofolate Reductase Inhibitor Antibacterial, Polymyxin-class AntibacterialStart: 10-04-2024 End: 28-26-4703xnde 1 drop(s) into the eye(s) four times dailyPolymyxin B Sulf- Trimethoprim 10,000 unit- 1 mg/mL drops Discontinued 1 DROPS EYE-BOTH Four times daily October 04, 2024 1:00am November 18, 2024 3:29pmpredniSONE 20 mg oral tablet (5 sources)Start: 09-06-2021 End: 05-33-7384qxkx 1 tablet by mouth once dailyPrednisone 20 [...] (16 sources)Essential hypertension; Translations: [Essential (primary) hypertension]Onset: 01-29-0369YpafmlcWiwfkmmhb disorders (9 sources)Excessive and frequent menstruation with irregular cycle; Translations: [Menometrorrhagia]Onset: 00-22-3389VdxcdjjArvda ear and sense organ disorders (5 sources)Chronic otitis externa; Translations: [Unspecified chronic otitis externa, unspecified ear]Onset: 224831-86-3479DguzxnsYmnhe ear and sense organ disorders (5 sources)Left conductive hearing loss; Translations: [Conductive hearing loss, unilateral, left ear, with unrestricted hearing on the contralateral side] Onset: 572555-92-9375PkdtkurOuvrm ear and sense organ disorders (5 sources)Otitis externa; Translations: [Unspecified otitis externa, unspecified ear]21-95-4237EhzdvuzXmzfhho on above:Problem List clean-up per request of Phys. EHR CmteOther ear and sense organ disorders (3 sources)Ear canal finding; Translations: [Other specified disorders of external ear, unspecified ear]36-64-1615ZemlcnxuYeupi eye disorders (3 sources)Inflammatory disorder of the eye; Translations: [Other specified disorders of eye and adnexa]61-87-2686KrnxmaihHmqra eye disorders (1 source)Other specified disorders of eye and adnexa; Translations: [Other ill- defined disorders of eye]54-94-4872KacryavyYrbzy nervous system disorders (2 sources)Attention and concentration deficit; Translations: [Impaired concentration]52-39-3869CjgfmbqHxdmo skin disorders (1 source)Disorder of skin of neck; Translations: [Rash and other nonspecific skin eruption]25-47-0099QzpiokfkIysvsqb cyst (1 source)Other ovarian cyst, right side; Translations: [OTHER OVARIAN CYST RIGHT SIDE]Onset: 18-82-6208NozaejbwBnswfmzt codes; unclassified (6 sources)Insomnia; Translations: [Insomnia, unspecified]EpisodicViral infection (6 sources)Plantar wart of right foot; Translations: [Plantar wart]Episodic Past or Other Problems Problem ClassificationProblemDateDocumented DateEpisodic/ChronicAllergic reactions (7 sources)Urticaria; Translations: [Urticaria, unspecified]Onset: 03-09-2025 47-32-7832BuvusozkTtgjfnnwxmnc; infection of eye (except that caused by tuberculosis or sexually transmitteddisease) (5 sources)Episcleritis; Translations: [Unspecified episcleritis, unspecified eye]Onset: 443145-39-0440MukwjfjuOomlm non-traumatic joint disorders (1 source)Pain in unspecified joint; Translations: [Pain in unspecified joint] Onset: 73-16-2430TvocnyziIgbod screening for suspected conditions (not mental disorders or infectious disease) (5 sources)Encounter for screening mammogram for malignant neoplasm of breast; Translations: [Patient encounter status]Onset: 559729-72-3783AnojkmcmSgzzm skin disorders (1 source)Rash and other nonspecific skin eruption; Translations: [Rash and other nonspecific skin eruption]Onset: 07-50-1975KplelojmVemoixcrcpdi (1 source)Cough R05.9Onset: 09-12-2021 Resolved: 18-41-6382Lvvoetobnjfq (1 source)Exposure to COVID-19 virus Z20.822Onset: 09-17-2021 Resolved: 09-17-2021 Results Test NameValueInterpretationReference RangeFacilityAlanine aminotransferase [Enzymatic activity/volume] in Serum or PlasmaOrdered By: Jordon Jean on 90-08-6183PME [Catalytic activity/Vol]17 U/LNormal7-52Good Samaritan HospitalComment on above:Order Comment: FASTING.JKWPerformed By: #### CBC, CMP wRFX A1C, LIPID #### [facility] [address] [id number] USAAlbumin [Mass/volume] in Serum or Plasma by Bromocresol green (BCG) dye binding methoOrdered By: Jordon Jean on 47-10-0586Ojwirqh BCG dye [Mass/Vol]4.2 g/dL3.5-5.7FSelect Medical TriHealth Rehabilitation HospitalAlkaline phosphatase [Enzymatic activity/volume] in Serum or PlasmaOrdered By: Jordon Jean on 19-17-2783JVZ [Catalytic activity/Vol]94 U/UCjtule08-831EibseibjsGood Samaritan HospitalComment on above:Order Comment: FASTING.JKWPerformed By: #### CBC, CMP wRFX A1C, LIPID #### [place] [id number] USAAspartate aminotransferase [Enzymatic activity/volume] in Serum or PlasmaOrdered By: Jordon Jean on 59-67-9591TTL [Catalytic activity/Vol]16 U/GAltucs14-94RkmahdfcuGood Samaritan HospitalComment on above: Order Comment: FASTING.JKWPerformed By: #### CBC, CMP wRFX A1C, LIPID #### [place] [id number] USABasophils [#/volume] in Blood by Automated countOrdered By: Jordon Jean on 09-72-7422Ovedsjwlt (Bld) [#/Vol]0.0 10*3/uLNormal0.0-0.2 [facility] HospitalComment on above:Result Comment: PERFORMED BY: [place] [address] PATHOLOGIST CLINICAL DIETETIC TECHNICIAN VIC PRADHAN M.D.Performed By: #### CBC, CMP wRFX A1C, LIPID #### [address] [place] [id number] USABasophils/100 leukocytes in Blood by Automated count Ordered By: Jordon Jean on 10-75-8264Cjdzqcvzh/100 WBC (Bld)0.6 %Normal. [facility]itan HospitalComment on above:Performed By: #### CBC, CMP wRFX A1C, LIPID #### [facility] [address] [place] [address] USABilirubin.total [Mass/volume] in Serum or PlasmaOrdered By: Jordon Dentonmer on 54-59-9452Gfnofvmaj [Mass/Vol]0.6 mg/dLNormal0.3-1.0 [facility] HospitalComment on above:Order Comment: FASTING.JKW Performed By: #### CBC, CMP wRFX A1C, LIPID #### [facility] [address] [place] [address] USACMP with reflex to A1Con 02-51-2901Tsznzoj [Mass/Vol]4.2 g/dLNormal3.5-5.7The [facility] Physician GroupComment on above:Order Comment: FASTING.JKWPerformed By: #### CBC, CMP wRFX A1C, LIPID #### [facility] [address] [place] [address] USAGFR/1.73 sq M.predicted MDRD (S/P/Bld) [Vol rate/Area] mL/min/{1.73_m2}NormalThe Formerly M[facility]owell Hospital Physician GroupComment on above:Order Comment: FASTING.JKWPerformed By: #### CBC, CMP wRFX A1C, LIPID #### [facility] [address] [place] [address] USACalcium [Mass/volume] in Serum or PlasmaOrdered By: Jordonirving Jean on 70-84-2061Zxtsbqz [Mass/Vol]10.3 mg/dLNormal8.6-10.3FSelect Medical TriHealth Rehabilitation HospitalComment on above:Order Comment: FASTING.JKWPerformed By: #### CBC, CMP wRFX A1C, LIPID #### [facility] [address] [id number] USACarbon dioxide, total [Moles/volume] in Serum or Plasma Ordered By: Jordon Jean on 81-40-6016YV2 [Moles/Vol]28.3 mmol/LNormal 21.0-31.0[facility] HospitalComment on above:Order Comment: FASTING.JKWPerformed By: #### CBC, CMP wRFX A1C, LIPID #### [facility] [address] [place] [address] USAChloride [Moles/volume] in Serum or PlasmaOrdered By: Jordon Jean on 41-68-3224Mbxoxvra [Moles/Vol]104 mmol/PAejxfl20-388VkuiseponGood Samaritan HospitalComment on above:Order Comment: FASTING.JKWPerformed By: #### CBC, CMP wRFX A1C, LIPID #### [facility] [address] [place] [address] USACholesterol [Mass/volume] in Serum or PlasmaOrdered By: Jordon Dentonmer on 88-71-3239Bepncrgxzsg [Mass/Vol]188 mg/hIBmfjjt938-507 [facility] HospitalComment on above:Chol less than 200 mg/dl low riskChol 201-239 mg/dl borderline riskChol 240 mg/dl and greater high riskOrder Comment: FASTING.JKWResult Comment: Chol less than 200 mg/dl low risk Chol 201-239 mg/dl borderline risk Chol 240 mg/dl and greater high riskPerformed By: #### CBC, CMP wRFX A1C, LIPID #### [facility] [address] [place] [address] USACholesterol in HDL [Mass/volume] in Serum or PlasmaOrdered By: Jordon Dentonmer on 22-28-2406Weylrmfnagc in HDL [Mass/Vol]53 mg/dLNormal 23-92[facility]itan HospitalComment on above:HDL CHOL ATP-III CLASSIFICATION Cardiovascular RiskHDL > or equal to 60 mg/dL LOWHDL < 40 mg/dL HIGHOrder Comment: FASTING.JKWResult Comment: HDL CHOL ATP-III CLASSIFICATION Cardiovascular Risk HDL > or equal to 60 mg/dL LOW HDL < 40 mg/dL HIGHPerformed By: #### CBC, CMP wRFX A1C, LIPID #### [facility] [address] [place] [address] USACholesterol in LDL Calc [Mass/Vol]Ordered By: Jordon Jean on 58-48-2288Pcwpsyripff in LDL [Mass/Vol]100 mg/dL0-100[facility] HospitalComment on above:LDL ATP III CLASSIFICATIONLDL less than 100 mg/dL OptimalLDL 100-129 mg/dL Near or above luqvcxyPOC602-343 mg/dL Borderline highLDL 160-189 mg/dL HighLDL greater than 189 mg/dL Very high Cholesterol in VLDL Calc [Mass/Vol]Ordered By: Jordon Jean on 07-08-2025 Cholesterol in VLDL [Mass/Vol]34 mg/dLGood Samaritan HospitalComplete Blood Count Auto Diffon 70-37-8800Wavz Corpuscular HGB Conc34.3 g/dLNormal 32.0-35.0The [facility] Physician GroupComment on above:Performed By: #### CBC, CMP wRFX A1C, LIPID #### [facility] [address] [place] [address] USANRBC%0.1 /100{WBC}Normal0-0.5The [facility] Comment on above:Performed By: #### CBC, CMP wRFX A1C, LIPID #### [facility] [address] [place] [address] USAWhite Blood Count5.5 [CFU]/mLNormal3.8-11.6The [facility] Physician [facility]ch Regional Medical CenterComment on above:Performed By: #### CBC, CMP wRFX A1C, LIPID #### [facility] [address] [place] [address] USACreatinine [Mass/volume] in Serum or PlasmaOrdered By: Jordon Miranda on 90-38-1465Kerexhafld [Mass/Vol]0.82 mg/dLNormal0.60-1.20 [facility] HospitalComment on above:Order Comment: FASTING.JKW Performed By: #### CBC, CMP wRFX A1C, LIPID #### [facility] [address] [place] [address] USAEosinophils [#/volume] in Blood by Automated countOrdered By: Jordon Miranda on 52-47-5987Hkzwlkrchup (Bld) [#/Vol]0.1 10*3/uLNormal 0.0-0.45[facility] HospitalComment on above:Performed By: #### CBC, CMP wRFX A1C, LIPID #### [facility] [address] [id number] USAEosinophils/100 leukocytes in Blood by Automated count Ordered By: Jordon Jean on 88-52-2511Zvkyzgzofyv/100 WBC (Bld)2.5 %Normal. [facility] HospitalComment on above:Performed By: #### CBC, CMP wRFX A1C, LIPID #### [facility] [address] [place] [address] USAErythrocyte distribution width [Ratio] by Automated count Ordered By: Jordon Jean on 03-50-7756Rttbqwmelto distribution width (RBC) [Ratio]13.2 %Cqndba65.9-15.3FSelect Medical TriHealth Rehabilitation HospitalComment on above: Performed By: #### CBC, CMP wRFX A1C, LIPID #### [place] [address] USAErythrocytes [#/volume] in Blood by Automated countOrdered By: Jordon eJan on 12-97-6481YGS (Bld) [#/Vol]4.83 10*6/uLNormal3.60-5.00 [facility] HospitalComment on above:Performed By: #### CBC, CMP wRFX A1C, LIPID #### [place] [address] USAGlomerular filtration rate [Volume Rate/Area] in Serum, Plasma or Blood by CreatinineOrdered By: Jordon Jean on 62-25-5034Ekjwbfejxh filtration rate [Volume Rate/Area] in Serum, Plasma or Blood by Creatinine> 60.0 mL/MinGood Samaritan HospitalGlucose [Mass/volume] in Serum or Plasma Ordered By: Jordon Jean on 97-50-2552Qpgutao [Mass/Vol]87 mg/oEAjmhjm45-763 [facility] HospitalComment on above:Order Comment: FASTING.JKW Performed By: #### CBC, CMP wRFX A1C, LIPID #### [place] [address] USAHematocrit [Volume Fraction] of Blood by Automated count Ordered By: Jordon Jean on 94-43-6185Srcifhbhfb (Bld) [Volume fraction]42.8 % Hohncl66.0-46.4FSelect Medical TriHealth Rehabilitation HospitalComment on above:Performed By: #### CBC, CMP wRFX A1C, LIPID #### [facility] [address] [place] [address] USAHemoglobin [Mass/volume] in BloodOrdered By: Jordon Dentonmer on 79-42-4995Evcyghetnp (Bld) [Mass/Vol]14.7 g/cAHnhkty44.8-15.4FSelect Medical TriHealth Rehabilitation HospitalComment on above:Performed By: #### CBC, CMP wRFX A1C, LIPID #### [facility] [address] [place] [address] USALeukocytes [#/volume] corrected for nucleated erythrocytes in Blood by Automated counOrdered By: Jordon Dentonmer on 45-69-4270XYM corrected for nucl RBC Auto (Bld) [#/Vol]5.5 10*3/uL3.8-11.6FSelect Medical TriHealth Rehabilitation HospitalLeukocytes [#/volume] in Blood by Automated countOrdered By: Jordon Dentonmer on 28-10-9503MGJ (Bld) [#/Vol]5.5 10*3/uLNormal3.8-11.6FSelect Medical TriHealth Rehabilitation HospitalComment on above:Performed By: #### CBC, CMP wRFX A1C, LIPID #### [facility] [address] [place] [address] USALipid Panelon 00-46-5284GED Cholesterol,Glhtepmlxv084 mg/dLNormal0-100The [facility] Physician GroupComment on above:Order Comment: FASTING.AndieKJose Comment: LDL ATP III CLASSIFICATION LDL less than 100 mg/dL Optimal LDL 100-129 mg/dL Near or above optimal LDL 130-159 mg/dL Borderline high LDL 160-189 mg/dL High LDL greater than 189 mg/dL Very highPerformed By: #### CBC, CMP wRFX A1C, LIPID #### [facility] [address] [place] [address] USATriglyceride w/Wsitwb301 mg/dLHigh0-149The [facility] Physician GroupComment on above:Order Comment: FASTING.AndieKJose Comment: TRIG ATP III CLASSIFICATION TRIG less than 150 mg/dL Normal TRIG 150-199 mg/dL Borderline high TRIG 200-500 mg/dL High TRIG greater than 500 mg/dL Very high Standard traceable to the Center for Disease Conrtrol and Prevention (CDC) test method.Performed By: #### CBC, CMP wRFX A1C, LIPID #### [facility] [address] [id number] USAVLDL PUWOBKDKSKN26 mg/dLNormalThe Formerly [facility] Physician GroupComment on above:Order Comment: FASTING.AndieKWPerformed By: #### CBC, CMP wRFX A1C, LIPID #### [place] [address] USALymphocytes [#/volume] in Blood by Automated countOrdered By: Jordon Jean on 91-47-2983Nxwopiiebxd (Bld) [#/Vol]1.4 10*3/uLNormal 1.00-4.8[facility] HospitalComment on above:Performed By: #### CBC, CMP wRFX A1C, LIPID #### [place] [id number] USALymphocytes/100 leukocytes in Blood by Automated count Ordered By: Jordon Jean on 86-24-6630Xmjmhtguhcj/100 WBC (Bld)25.3 %Normal. [facility] HospitalComment on above:Performed By: #### CBC, CMP wRFX A1C, LIPID #### [place] [id number] [facility] [Entitic mass] by Automated countOrdered By: Jordon Jean on 64-93-8591JSZ (RBC) [Entitic mass]30.4 meUnglrx65.7-34.3FSelect Medical TriHealth Rehabilitation HospitalComment on above:Performed By: #### CBC, CMP wRFX A1C, LIPID #### [address] [place] [id number] [facility] Auto (RBC) [Mass/Vol]Ordered By: Jordon Jean on 15-96-8082QQRA (RBC) [Mass/Vol]34.3 g/dL32.0-35.0[facility]itan HospitalMCV [Entitic volume] by Automated countOrdered By: Jordon Jean on 08-36-2672IAQ (RBC) [Entitic vol]88.7 iQGuwuto38-055MxvdhtqvtGood Samaritan HospitalComment on above:Performed By: #### CBC, CMP wRFX A1C, LIPID #### [facility] [address] [place], [place] [id number] USAMonocytes [#/volume] in Blood by Automated countOrdered By: Jordon Jean on 34-44-8864Afrpduuen (Bld) [#/Vol]0.2 10*3/uLNormal0.0-0.8 [facility] HospitalComment on above:Performed By: #### CBC, CMP wRFX A1C, LIPID #### [facility] [address] [place] [address] USAMonocytes/100 leukocytes in Blood by Automated count Ordered By: Jordon Dentonmer on 61-32-0799Bpqcoylnp/100 WBC (Bld)4.0 %Normal. [facility] HospitalComment on above:Performed By: #### CBC, CMP wRFX A1C, LIPID #### [facility] [address] [place] [address] USANeutrophils [#/volume] in Blood by Automated countOrdered By: Jordon Dentonmer on 48-48-4983Lubfipqujhc (Bld) [#/Vol]3.7 10*3/uLNormal 1.8-7.7FSelect Medical TriHealth Rehabilitation HospitalComment on above:Performed By: #### CBC, CMP wRFX A1C, LIPID #### [facility] [address] [place] [address] USANeutrophils/100 leukocytes in Blood by Automated count Ordered By: Jordon Dentonmer on 60-43-1532Jdewbnkewid/100 WBC (Bld)67.6 %Normal. [facility] HospitalComment on above:Performed By: #### CBC, CMP wRFX A1C, LIPID #### [facility] [address] [id number] USANo Panel InformationOrdered By: Jordon Dentonmer on 20-93-3819Mxkmvxeg Creatinine Clearance (ChemN/AFSelect Medical TriHealth Rehabilitation HospitalNucleated erythrocytes [Presence] in Blood by Automated countOrdered By: Jordon Dentonmer on 00-44-6283Yavhaqaiz RBC Auto Ql (Bld)0.1 /100{WBC}0-0.5 [facility]itan HospitalPlatelet mean volume [Entitic volume] in Blood by Automated countOrdered By: Jordon Dentonmer on 75-75-0030Vyqdxcik mean volume (Bld) [Entitic vol]8.3 fLNormal6.3-10.7FSelect Medical TriHealth Rehabilitation HospitalComment on above:Performed By: #### CBC, CMP wRFX A1C, LIPID #### [facility] [address] [place] [address] USAPlatelets [#/volume] in Blood by Automated countOrdered By: Jordon Jean on 75-37-7387Qgslqvxkk (Bld) [#/Vol]240 10*3/jHKsiacg923-778 [facility] HospitalComment on above:Performed By: #### CBC, CMP wRFX A1C, LIPID #### [facility] [address] [id number] USAPotassium [Moles/volume] in Serum or PlasmaOrdered By: Jordon Jean on 80-71-2868Uaunicoht [Moles/Vol]4.5 mmol/LNormal3.5-5.1 [facility] HospitalComment on above:Hemolysis is present at a level that could interfere with the result.Contact lab if redraw is required Order Comment: FASTING.AndieKWRambrose Comment: Hemolysis is present at a level that could interfere with the result. Contact lab if redraw is requiredPerformed By: #### CBC, CMP wRFX A1C, LIPID #### [facility] [address] [id number] USAProtein [Mass/volume] in Serum or PlasmaOrdered By: Jordon Jean on 35-72-9435Ujvpyfi [Mass/Vol]6.9 g/dLNormal6.4-8.9[facility] HospitalComment on above:Order Comment: FASTING.JKWPerformed By: #### CBC, CMP wRFX A1C, LIPID #### [facility] [address] [id number] USASerum globulin measurement by calculation (mass/volume) Ordered By: Jordon Jean on 20-94-8935Hxkzayzm (S) [Mass/Vol]2.7 g/dLNormal [facility] HospitalComment on above:Order Comment: FASTING.JKW Performed By: #### CBC, CMP wRFX A1C, LIPID #### [facility] [address] [place] [address] USASerum or plasma albumin/globulin mass ratioOrdered By: Jordon Jean on 51-41-6666Apqvfsx/Globulin [Mass ratio]1.6 {ratio}Normal [facility] HospitalComment on above:Order Comment: FASTING.JKW Performed By: #### CBC, CMP wRFX A1C, LIPID #### [place] [address] USASerum or plasma anion gap determinationOrdered By: Jordon Jean on 37-31-5471Fblak gap [Moles/Vol]9.2 mmol/LNormal6.0-15.0[facility] HospitalComment on above:Order Comment: FASTING.JKWPerformed By: #### CBC, CMP wRFX A1C, LIPID #### [facility] [address] [place] [address] USASerum or plasma total cholesterol/high density lipoprotein (HDL) cholesterol mass ratOrdered By: Jordon Jean on 07-08-2025 Cholesterol.total/Cholesterol in HDL [Mass ratio]3.5 {ratio}Normal<5.0[facility] HospitalComment on above:Order Comment: FASTING.JKWResult Comment: PERFORMED BY: [place] [address] PATHOLOGIST CLINICAL DIETETIC TECHNICIAN VIC PRADHAN M.D.Performed By: #### CBC, CMP wRFX A1C, LIPID #### [facility] [address] [place] [address] USASodium [Moles/volume] in Serum or PlasmaOrdered By: Jordon Jean on 57-20-7763Alhfxj [Moles/Vol]137 mmol/WAxptgd180-212QzjqvgqvjGood Samaritan HospitalComment on above:Order Comment: FASTING.JKWPerformed By: #### CBC, CMP wRFX A1C, LIPID #### [facility] [address] [place] [address] USATriglyceride [Mass/volume] in Serum or PlasmaOrdered By: Jordon Jean on 07-04-7692Tyzvypkvqsqn [Mass/Vol]174 mg/dLHigh0-149Good Samaritan HospitalComment on above:TRIG ATP III CLASSIFICATIONTRIG less than 150 mg/dL NormalTRIG 150-199 mg/dL Borderline highTRIG 200-500 mg/dL High TRIG greater than 500 mg/dL Very highStandard traceable to the Center for Disease Conrtrol and Prevention (CDC) test method.Urea nitrogen [Mass/volume] in Serum or PlasmaOrdered By: Jordon Jean on 95-03-3296Qwsl nitrogen [Mass/Vol] 9 mg/dLNormal7-25Good Samaritan HospitalComment on above:Order Comment: FASTING.JKWPerformed By: #### CBC, CMP wRFX A1C, LIPID #### [facility] [address] [place] [address] USABasophils [#/volume] in Blood by Automated countOrdered By: Luke Stone on 23-03-9137Zeheimmbo (Bld) [#/Vol]0.1 10*3/uLNormal0.0-0.2 [facility]itan HospitalComment on above:Performed By: #### CBC, CMP wRFX A1C, LIPID #### [facility] [address] [place] [address] USABasophils/100 leukocytes in Blood by Automated count Ordered By: Luke Stone on 06-59-3710Tfddtzdiz/100 WBC (Bld)1.2 %Normal. [facility] Samaritan HospitalComment on above:Performed By: #### CBC, CMP wRFX A1C, LIPID #### [facility] [address] [place] [address] USAC reactive protein [Mass/volume] in Serum or PlasmaOrdered By: Luke Stone on 21-59-1975OBM [Mass/Vol]0.5 mg/dL0.0-0.5FSelect Medical TriHealth Rehabilitation HospitalC-Reactive Proteinon 34-52-7749R-Reactive Protein0.5 mg/dLNormal 0.0-0.5The [facility] Physician GroupComment on above:Performed By: #### CBC, CMP wRFX A1C, LIPID #### [facility] [address] [place] [address] USAComplete Blood Count Auto Diffon 90-85-6527Nerm Corpuscular HGB Conc34.0 g/yQJtbpmu17.0-35.0The [facility] Physician [facility] Regional Medical CenterComment on above:Performed By: #### CBC, CMP wRFX A1C, LIPID #### [facility] [address] [place] [address] USANRBC%0.1 /100{WBC}Normal0-0.5The [facility] Comment on above:Performed By: #### CBC, CMP wRFX A1C, LIPID #### [place] [address] USAWhite Blood Count6.1 [CFU]/mLNormal3.8-11.6The [facility] Physician [facility] Regional Medical CenterComment on above:Performed By: #### CBC, CMP wRFX A1C, LIPID #### [facility] [address] [place] [address] USAEosinophils [#/volume] in Blood by Automated countOrdered By: Luke Stone on 87-63-7763Slrsoybrlss (Bld) [#/Vol]0.2 10*3/uLNormal 0.0-0.45[facility] Samaritan HospitalComment on above:Performed By: #### CBC, CMP wRFX A1C, LIPID #### [place] [address] USAEosinophils/100 leukocytes in Blood by Automated count Ordered By: Luke Stone on 16-07-8579Kpgckoisvuy/100 WBC (Bld)3.8 %Normal. [facility]aritan HospitalComment on above:Performed By: #### CBC, CMP wRFX A1C, LIPID #### [facility] [address] [place] [address] USAErythrocyte Sedimentation Rateon 18-85-5876TPT (Bld) [Velocity]18 mm/hNormal0-19The [facility] Physician GroupComment on above:Result Comment: PERFORMED BY: [place] [address] PATHOLOGIST CLINICAL DIETETIC TECHNICIAN VIC PRADHAN M.D.Performed By: #### CBC, CMP wRFX A1C, LIPID #### [place] [address] USAErythrocyte distribution width [Ratio] by Automated count Ordered By: Luke Stone on 72-04-2969Rszmofkngah distribution width (RBC) [Ratio]14.0 %Zcagyl89.9-15.3FSelect Medical TriHealth Rehabilitation HospitalComment on above: Performed By: #### CBC, CMP wRFX A1C, LIPID #### [place] [address] USAErythrocyte sedimentation rate by Photometric method Ordered By: Luke Stone on 04-17-6701BRK Photometric method (Bld) [Velocity]18 mm/hr0-19Good Samaritan HospitalErythrocytes [#/volume] in Blood by Automated countOrdered By: Luke Stone on 65-14-9649HHX (Bld) [#/Vol]5.23 10*6/uLHigh3.60-5.00[facility]aritan HospitalComment on above:Performed By: #### CBC, CMP wRFX A1C, LIPID #### [facility] [address] [place] [address] USAHematocrit [Volume Fraction] of Blood by Automated count Ordered By: Luke Stone on 63-25-5020Dvmhsmzwyv (Bld) [Volume fraction]46.1 % Yuundk35.0-46.4FSelect Medical TriHealth Rehabilitation HospitalComment on above:Performed By: #### CBC, CMP wRFX A1C, LIPID #### [facility] [address] [place] [address] USAHemoglobin [Mass/volume] in BloodOrdered By: Luke Stone on 44-10-1159Orkleyakni (Bld) [Mass/Vol]15.7 g/oQRqiw96.8-15.4FSelect Medical TriHealth Rehabilitation HospitalComment on above:Performed By: #### CBC, CMP wRFX A1C, LIPID #### [facility] [address] [place] [id number] USALeukocytes [#/volume] corrected for nucleated erythrocytes in Blood by Automated counOrdered By: Luke Stone on 39-54-9558HHK corrected for nucl RBC Auto (Bld) [#/Vol]6.1 10*3/uL3.8-11.6FSelect Medical TriHealth Rehabilitation HospitalLeukocytes [#/volume] in Blood by Automated countOrdered By: Luke Stone on 73-42-7866VWV (Bld) [#/Vol]6.1 10*3/uLNormal3.8-11.6FSelect Medical TriHealth Rehabilitation HospitalComment on above:Performed By: #### CBC, CMP wRFX A1C, LIPID #### [facility] [address] [place] [id number] USALymphocytes [#/volume] in Blood by Automated countOrdered By: Luke Stone on 53-29-6174Kncfdiogkjb (Bld) [#/Vol]1.3 10*3/uLNormal 1.00-4.8[facility]aritan HospitalComment on above:Performed By: #### CBC, CMP wRFX A1C, LIPID #### [facility] [address] [place] [id number] USALymphocytes/100 leukocytes in Blood by Automated count Ordered By: Luke Stone on 61-29-5522Wmiscxqfvpk/100 WBC (Bld)21.9 %Normal. [facility]itan HospitalComment on above:Performed By: #### CBC, CMP wRFX A1C, LIPID #### [facility] [address] [place] [address] USAMCH [Entitic mass] by Automated countOrdered By: Luke Stone on 94-01-1901AFX (RBC) [Entitic mass]30.0 jmGbngwh19.7-34.3FSelect Medical TriHealth Rehabilitation HospitalComment on above:Performed By: #### CBC, CMP wRFX A1C, LIPID #### [facility] [address] [place] [id number] USAHC Auto (RBC) [Mass/Vol]Ordered By: Luke Bertha on 31-79-3863HRFX (RBC) [Mass/Vol]34.0 g/dL32.0-35.0Good Samaritan HospitalMCV [Entitic volume] by Automated countOrdered By: Ulke Bertha on 07-23-7773LUV (RBC) [Entitic vol]88.3 dTBnipxu09-455HkgbbqflbGood Samaritan HospitalComment on above:Performed By: #### CBC, CMP wRFX A1C, LIPID #### [facility] [address] [place] [address] USAMonocytes [#/volume] in Blood by Automated countOrdered By: Luke Stone on 52-83-5938Nnivrhbvm (Bld) [#/Vol]0.4 10*3/uLNormal0.0-0.8 [facility] HospitalComment on above:Performed By: #### CBC, CMP wRFX A1C, LIPID #### [facility] [address] [place] [id number] USAMonocytes/100 leukocytes in Blood by Automated count Ordered By: Luke Stone on 98-46-5308Zvlclfyns/100 WBC (Bld)5.8 %Normal. [facility]itan HospitalComment on above:Performed By: #### CBC, CMP wRFX A1C, LIPID #### [facility] [address] [place] [id number] USANeutrophils [#/volume] in Blood by Automated countOrdered By: Luke Stone on 24-28-8006Dyntzwurxgo (Bld) [#/Vol]4.1 10*3/uLNormal1.8-7.7 [facility]itan HospitalComment on above:Performed By: #### CBC, CMP wRFX A1C, LIPID #### [facility] [address] [place] [id number] USANeutrophils/100 leukocytes in Blood by Automated count Ordered By: Luke Stone on 43-09-6246Kxxzifjaqcq/100 WBC (Bld)67.3 %Normal. [facility]itan HospitalComment on above:Performed By: #### CBC, CMP wRFX A1C, LIPID #### [facility] [address] [place] [address] USANucleated erythrocytes [Presence] in Blood by Automated countOrdered By: Luke Stone on 94-21-6014Axczpqoiw RBC Auto Ql (Bld)0.1 /100{WBC}0-0.5FSelect Medical TriHealth Rehabilitation HospitalPlatelet mean volume [Entitic volume] in Blood by Automated countOrdered By: Luke Stone on 03-09-2025 Platelet mean volume (Bld) [Entitic vol]8.5 fLNormal6.3-10.7FSelect Medical TriHealth Rehabilitation HospitalComment on above:Performed By: #### CBC, CMP wRFX A1C, LIPID #### [facility] [address] [place] [address] USAPlatelets [#/volume] in Blood by Automated countOrdered By: Luke Stone on 52-39-7585Molpwvitw (Bld) [#/Vol]282 10*3/fDMpyvpw944-663 [facility] HospitalComment on above:Performed By: #### CBC, CMP wRFX A1C, LIPID #### [facility] [address] [place] [address] USAThyroid Stim Hormone w/Rflxon 74-95-3411Ucuyvqb Stim Hormone w/Rflx1.37 u[iU]/mLNormal0.45-5.33The [facility] Physician GroupComment on above:Result Comment: PERFORMED BY: [place] [address] PATHOLOGIST CLINICAL DIETETIC TECHNICIAN VIC PRADHAN M.D.Performed By: #### CBC, CMP wRFX A1C, LIPID #### [place] [address] USAThyrotropin [Units/volume] in Serum or PlasmaOrdered By: Luke Stone on 60-97-5334JYG Qn1.37 m[IU]/L0.45-5.33Good Samaritan HospitalANA Antinuclear Antibodieson 10-96-1190Fphpspxkyib Abs, IFANegativeNormal .The [facility] Physician GroupComment on above:Result Comment: Negative <1:80 Borderline 1:80 Positive >1:80 ICAP nomenclature: AC-0 For more information about Hep-2 cell patterns use ANApatterns.org, the official website for the International Consensus on Antinuclear Antibody (JEANNETTE) Patterns (ICAP). Performed at: - [facility] [address] [id number] Chief Meteorologist: Doron Redding PhD, Phone: [phone] By: #### RA, LEAD,ADULT, JEANNETTE #### [facility] , #### ADDONUAPLUS, CRP, ESR, CBC, CMP wRFX A1C #### [facility] [address]Alanine aminotransferase [Enzymatic activity/volume] in Serum or PlasmaOrdered By: Nicho Mayen on 42-35-4128IBW [Catalytic activity/Vol] Alanine aminotransferase [Enzymatic activity/volume] in Serum or Plasma7-52 [facility] HospitalAlbumin [Mass/volume] in Serum or Plasma by Bromocresol green (BCG) dye binding methoOrdered By: Nicho Mayen on 11-19-2024 Albumin BCG dye [Mass/Vol]Albumin [Mass/volume] in Serum or Plasma by Bromocresol green (BCG) dye binding metho3.5-5.7FSelect Medical TriHealth Rehabilitation HospitalAlkaline phosphatase [Enzymatic activity/volume] in Serum or PlasmaOrdered By: Nicho Mayen on 86-84-5015DIF [Catalytic activity/Vol]Alkaline phosphatase [Enzymatic activity/volume] in Serum or Otppdt52-904PyslnqtpeGood Samaritan HospitalAppearance of UrineOrdered By: Nicho Mayen on 34-71-8594Pxdtfbkzne (U)Urine appearanceClearFSelect Medical TriHealth Rehabilitation HospitalAspartate aminotransferase [Enzymatic activity/volume] in Serum or PlasmaOrdered By: Nicho Mayen on 72-81-6704PKD [Catalytic activity/Vol]Aspartate aminotransferase [Enzymatic activity/volume] in Serum or WckilqOtz20-42ZcecpmmqeGood Samaritan Hospital Bacteria [Presence] in Urine by AutomatedOrdered By: [facility] on 11-19-2024 Bacteria Auto Ql (U)Bacteria [Presence] in Urine by AutomatedNone SeenGood Samaritan HospitalBasophils Auto (Bld) [#/Vol]Ordered By: [facility] on 36-49-7115Ljxkqnrsa (Bld) [#/Vol]Automated basophil count0.0-0.2FSelect Medical TriHealth Rehabilitation HospitalBasophils/100 WBC Auto (Bld)Ordered By: [facility] on 06-00-2165Imlbwtelh/100 WBC (Bld)Automated basophil %.Good Samaritan HospitalBilirubin Test strip Ql (U)Ordered By: [facility] on 42-41-6181Byrshxzzu Ql (U)Bilirubin.total [Presence] in Urine by Test stripNegativeGood Samaritan HospitalBilirubin.total [Mass/volume] in Serum or PlasmaOrdered By: [facility] on 02-32-2892Swdmltjyy [Mass/Vol]Bilirubin.total [Mass/volume] in Serum or Plasma0.3-1.0Good Samaritan HospitalC reactive protein [Mass/volume] in Serum or PlasmaOrdered By: [facility] on 41-39-2495AVC [Mass/Vol]C reactive protein [Mass/volume] in Serum or PlasmaHigh0.0-0.5 [facility] HospitalC-Reactive Proteinon 00-51-2154P-Reactive Protein0.7 mg/dLHigh0.0-0.5The Former[facility] Physician GroupComment on above:Order Comment: FASTING.JKWResult Comment: PERFORMED BY: [facility] [address] [place] [address] PATHOLOGIST CLINICAL DIETETIC TECHNICIAN ENEDELIA LAGUNAS M.D.Performed By: #### RA, LEAD,ADULT, JEANNETTE #### [facility] , #### ADDONUAPLUS, CRP, ESR, CBC, CMP wRFX A1C #### [facility] [address] [place] [address] USACMP with reflex to A1Con 89-65-7144Gzgyobq [Mass/Vol]4.4 g/dLNormal3.5-5.7The [facility] Physician GroupComment on above:Order Comment: FASTING.JKWPerformed By: #### RA, LEAD,ADULT, JEANNETTE #### [facility] , #### ADDONUAPLUS, CRP, ESR, CBC, CMP wRFX A1C #### [facility] [address] [place] [address] USAAlbumin/Globulin [Mass ratio]1.8 {ratio}NormalThe Formerly [facility] Hospital Physician GroupComment on above:Order Comment: FASTING.JKWPerformed By: #### RA, LEAD,ADULT, JEANNETTE #### [facility] , #### ADDONUAPLUS, CRP, ESR, CBC, CMP wRFX A1C #### [facility] [address] [place] [address] USAALP [Catalytic activity/Vol]70 U/LGpqalb76-620Hfc [facility] Physician GroupComment on above:Order Comment: FASTING.JKWPerformed By: #### RA, LEAD,ADULT, JEANNETTE #### [facility] , #### ADDONUAPLUS, CRP, ESR, CBC, CMP wRFX A1C #### [facility] [address] [place] [address] USAALT [Catalytic activity/Vol]17 U/LNormal7-52The [facility] Physician [facility] Regional Medical CenterComment on above:Order Comment: FASTING.JKWPerformed By: #### RA, LEAD,ADULT, JEANNETTE #### [facility] , #### ADDONUAPLUS, CRP, ESR, CBC, CMP wRFX A1C #### [facility] [address] [place] [address] USAAnion gap [Moles/Vol]8.4 mmol/LNormal6.0-15.0The [facility] Physician [facility] Regional Medical CenterComment on above:Order Comment: FASTING.JKWPerformed By: #### RA, LEAD,ADULT, JEANNETTE #### [facility] , #### ADDONUAPLUS, CRP, ESR, CBC, CMP wRFX A1C #### [place] [address] USAAST [Catalytic activity/Vol]12 U/GAfv38-07Nrf [facility] Physician GroupComment on above:Order Comment: FASTING.JKWPerformed By: #### RA, LEAD,ADULT, JEANNETTE #### [facility] , #### ADDONUAPLUS, CRP, ESR, CBC, CMP wRFX A1C #### [place] [address] USABilirubin [Mass/Vol]0.5 mg/dLNormal0.3-1.0The [facility] Physician GroupComment on above:Order Comment: FASTING.JKWPerformed By: #### RA, LEAD,ADULT, JEANNETTE #### [facility] , #### ADDONUAPLUS, CRP, ESR, CBC, CMP wRFX A1C #### [place] [address] USACalcium [Mass/Vol]10.7 mg/dLHigh8.6-10.3The [facility] Physician GroupComment on above:Order Comment: FASTING.JKWPerformed By: #### RA, LEAD,ADULT, JEANNETTE #### [facility] , #### ADDONUAPLUS, CRP, ESR, CBC, CMP wRFX A1C #### [place] [address] USAChloride [Moles/Vol]106 mmol/DNrmjon65-275Ksl [facility] Physician GroupComment on above:Order Comment: FASTING.JKWPerformed By: #### RA, LEAD,ADULT, JEANNETTE #### [facility] , #### ADDONUAPLUS, CRP, ESR, CBC, CMP wRFX A1C #### [place] [address] USACO2 [Moles/Vol]28.8 mmol/XRmlvsb95.0-31.0The [facility] Physician GroupComment on above:Order Comment: FASTING.JKWPerformed By: #### RA, LEAD,ADULT, JEANNETTE #### [facility] , #### ADDONUAPLUS, CRP, ESR, CBC, CMP wRFX A1C #### [place] [address] USACreatinine [Mass/Vol]0.80 mg/dLNormal0.60-1.20The Former[facility] Physician GroupComment on above:Order Comment: FASTING.JKWPerformed By: #### RA, LEAD,ADULT, JEANNETTE #### [facility] , #### ADDONUAPLUS, CRP, ESR, CBC, CMP wRFX A1C #### [place] [address] USAGFR/1.73 sq M.predicted MDRD (S/P/Bld) [Vol rate/Area] mL/min/{1.73_m2}NormalThe Formerly [facility] Hospital Physician GroupComment on above:Order Comment: FASTING.JKWPerformed By: #### RA, LEAD,ADULT, JEANNETTE #### [facility] , #### ADDONUAPLUS, CRP, ESR, CBC, CMP wRFX A1C #### [place] [address] USAGlobulin (S) [Mass/Vol]2.4 g/dLNormalThe [facility] Physician GroupComment on above:Order Comment: FASTING.JKWPerformed By: #### RA, LEAD,ADULT, JEANNETTE #### [facility] , #### ADDONUAPLUS, CRP, ESR, CBC, CMP wRFX A1C #### [place] [address] USAGlucose [Mass/Vol]92 mg/dNUbevis42-768Sjy [facility] Physician GroupComment on above:Order Comment: FASTING.JKWPerformed By: #### RA, LEAD,ADULT, JEANNETTE #### [facility] , #### ADDONUAPLUS, CRP, ESR, CBC, CMP wRFX A1C #### [address] [place] [address] USAPotassium [Moles/Vol]4.2 mmol/LNormal3.5-5.1The [facility] Physician GroupComment on above:Order Comment: FASTING.JKWPerformed By: #### RA, LEAD,ADULT, JEANNETTE #### [facility] , #### ADDONUAPLUS, CRP, ESR, CBC, CMP wRFX A1C #### [place] [address] USAProtein [Mass/Vol]6.8 g/dLNormal6.4-8.9The [facility] Physician GroupComment on above:Order Comment: FASTING.JKWPerformed By: #### RA, LEAD,ADULT, JEANNETTE #### [facility] , #### ADDONUAPLUS, CRP, ESR, CBC, CMP wRFX A1C #### [place] [address] USASodium [Moles/Vol]139 mmol/YOtvims943-518Tuj [facility] Physician GroupComment on above:Order Comment: FASTING.JKWPerformed By: #### RA, LEAD,ADULT, JEANNETTE #### [facility] , #### ADDONUAPLUS, CRP, ESR, CBC, CMP wRFX A1C #### [place] [id number] USAUrea nitrogen [Mass/Vol]15 mg/dLNormal7-25The [facility] Physician GroupComment on above:Order Comment: FASTING.JKWPerformed By: #### RA, LEAD,ADULT, JEANNETTE #### [facility] , #### ADDONUAPLUS, CRP, ESR, CBC, CMP wRFX A1C #### [place] [address] USACalcium [Mass/volume] in Serum or PlasmaOrdered By: Nicho Mayne on 95-96-2997Fvetrnc [Mass/Vol]Calcium [Mass/volume] in Serum or PlasmaHigh 8.6-10.3FSelect Medical TriHealth Rehabilitation HospitalCarbon dioxide, total [Moles/volume] in Serum or PlasmaOrdered By: Nicho Mast on 21-75-9329CY2 [Moles/Vol]Carbon dioxide, total [Moles/volume] in Serum or Vayjqp94.0-31.0[facility]itan HospitalChloride [Moles/volume] in Serum or PlasmaOrdered By: Nicho Mast on 23-40-5913Mleptnjn [Moles/Vol]Chloride [Moles/volume] in Serum or Phyhuk93-550 [facility]itan HospitalColor Auto (U)Ordered By: Nicho Mast on 32-23-8141Palex (U)Color of Urine by AutoYellowGood Samaritan Hospital Complete Blood Count Auto Diffon 54-16-5563Jgkphujid (Bld) [#/Vol]0.0 10*3/uL Normal0.0-0.2The Former[facility] Physician GroupComment on above:Performed By: #### RA, LEAD,ADULT, JEANNETTE #### [facility] , #### ADDONUAPLUS, CRP, ESR, CBC, CMP wRFX A1C #### [facility] [address] [place] [id number] USABasophils/100 WBC (Bld)0.3 %Normal.The Former[facility] Physician GroupComment on above:Performed By: #### RA, LEAD,ADULT, JEANNETTE #### [facility] , #### ADDONUAPLUS, CRP, ESR, CBC, CMP wRFX A1C #### [facility] [address] [place] [id number] USAEosinophils (Bld) [#/Vol]0.2 10*3/uLNormal0.0-0.45The Formerly [facility] Physician GroupComment on above:Performed By: #### RA, LEAD,ADULT, JEANNETTE #### [facility] , #### ADDONUAPLUS, CRP, ESR, CBC, CMP wRFX A1C #### [facility] [address] [place] [address] USAEosinophils/100 WBC (Bld)2.9 %Normal.The Former[facility] Physician GroupComment on above:Performed By: #### RA, LEAD,ADULT, JEANNETTE #### [facility] , #### ADDONUAPLUS, CRP, ESR, CBC, CMP wRFX A1C #### [facility] [address] [place] [address] USAErythrocyte distribution width (RBC) [Ratio]12.8 %Normal 11.9-15.3The Former[facility] Physician GroupComment on above:Performed By: #### RA, LEAD,ADULT, JEANNETTE #### [facility] , #### ADDONUAPLUS, CRP, ESR, CBC, CMP wRFX A1C #### [facility] [address] [place] [address] USAHematocrit (Bld) [Volume fraction]46.5 %High34.0-46.4The Former[facility] Physician GroupComment on above:Performed By: #### RA, LEAD,ADULT, JEANNETTE #### [facility] , #### ADDONUAPLUS, CRP, ESR, CBC, CMP wRFX A1C #### [facility] [address] [place] [address] USAHemoglobin (Bld) [Mass/Vol]15.5 g/rIRevn31.8-15.4The [facility] Physician GroupComment on above:Performed By: #### RA, LEAD,ADULT, JEANNETTE #### [facility] , #### ADDONUAPLUS, CRP, ESR, CBC, CMP wRFX A1C #### [facility] [address] [place] [address] USALymphocytes (Bld) [#/Vol]1.2 10*3/uLNormal1.00-4.8The Former[facility] Physician GroupComment on above:Performed By: #### RA, LEAD,ADULT, JEANNETTE #### [facility] , #### ADDONUAPLUS, CRP, ESR, CBC, CMP wRFX A1C #### [facility] [address] [place] [address] USALymphocytes/100 WBC (Bld)20.4 %Normal.The [facility] Physician GroupComment on above:Performed By: #### RA, LEAD,ADULT, JEANNETTE #### [facility] , #### ADDONUAPLUS, CRP, ESR, CBC, CMP wRFX A1C #### [facility] [address] (RBC) [Entitic mass]29.4 pkRxeqri47.7-34.3The Former[facility] Physician GroupComment on above:Performed By: #### RA, LEAD,ADULT, JEANNETTE #### [facility] , #### ADDONUAPLUS, CRP, ESR, CBC, CMP wRFX A1C #### [address] (RBC) [Entitic vol]88.4 eSTniviw32-945Kyz [facility] Physician GroupComment on above:Performed By: #### RA, LEAD,ADULT, JEANNETTE #### [facility] , #### ADDONUAPLUS, CRP, ESR, CBC, CMP wRFX A1C #### [place] [address] USAMean Corpuscular HGB Conc33.3 g/oLVwjsww00.0-35.0The [facility] Physician GroupComment on above:Performed By: #### RA, LEAD,ADULT, JEANNETTE #### [facility] , #### ADDONUAPLUS, CRP, ESR, CBC, CMP wRFX A1C #### [place] [address] USAMonocytes (Bld) [#/Vol]0.3 10*3/uLNormal0.0-0.8The [facility] Physician GroupComment on above:Performed By: #### RA, LEAD,ADULT, JEANNETTE #### [facility] , #### ADDONUAPLUS, CRP, ESR, CBC, CMP wRFX A1C #### [place] [address] USAMonocytes/100 WBC (Bld)5.0 %Normal.The Former[facility] Physician GroupComment on above:Performed By: #### RA, LEAD,ADULT, JEANNETTE #### [facility] , #### ADDONUAPLUS, CRP, ESR, CBC, CMP wRFX A1C #### [place] [address] USANeutrophils (Bld) [#/Vol]4.0 10*3/uLNormal1.8-7.7The [facility] Physician GroupComment on above:Performed By: #### RA, LEAD,ADULT, JEANNETTE #### [facility] , #### ADDONUAPLUS, CRP, ESR, CBC, CMP wRFX A1C #### [place] [address] USANeutrophils/100 WBC (Bld)71.4 %Normal.The [facility] Physician GroupComment on above:Performed By: #### RA, LEAD,ADULT, JEANNETTE #### [facility] , #### ADDONUAPLUS, CRP, ESR, CBC, CMP wRFX A1C #### [place] [address] USANRBC%0.2 /100{WBC}Normal0-0.5The [facility] Comment on above:Performed By: #### RA, LEAD,ADULT, JEANNETTE #### [facility] , #### ADDONUAPLUS, CRP, ESR, CBC, CMP wRFX A1C #### [place] [address] USAPlatelet mean volume (Bld) [Entitic vol]8.9 fLNormal 6.3-10.7The [facility] Physician GroupComment on above:Performed By: #### RA, LEAD,ADULT, JEANNETTE #### [facility] , #### ADDONUAPLUS, CRP, ESR, CBC, CMP wRFX A1C #### [place] [address] USAPlatelets (Bld) [#/Vol]245 10*3/wDElguja816-201Pfq [facility] Physician GroupComment on above:Performed By: #### RA, LEAD,ADULT, JEANNETTE #### [facility] , #### ADDONUAPLUS, CRP, ESR, CBC, CMP wRFX A1C #### [facility] [address] [place] [address] USARBC (Bld) [#/Vol]5.26 10*6/uLHigh3.60-5.00[facility] Physician GroupComment on above:Performed By: #### RA, LEAD,ADULT, JEANNETTE #### [facility] , #### ADDONUAPLUS, CRP, ESR, CBC, CMP wRFX A1C #### [place] [address] USAWBC (Bld) [#/Vol]5.6 10*3/uLNormal3.8-11.6The [facility] Physician GroupComment on above:Performed By: #### RA, LEAD,ADULT, JEANNETTE #### [facility] , #### ADDONUAPLUS, CRP, ESR, CBC, CMP wRFX A1C #### [place] [address] USACreatinine [Mass/volume] in Serum or PlasmaOrdered By: Nicho Mayen on 44-55-0081Emqnzlazms [Mass/Vol]Creatinine [Mass/volume] in Serum or Plasma0.60-1.20[facility]aritan HospitalDipstick and Microscopicon 20-81-7311Aczulrrbpt (U)ClearNormalClearThe Formerly [facility] Physician GroupComment on above:Order Comment: Name Collection Type:: Clean-Voided MidstreamPerformed By: #### RA, LEAD,ADULT, JEANNETTE #### [facility] , #### ADDONUAPLUS, CRP, ESR, CBC, CMP wRFX A1C #### [place] [address] USABacteria,UrineRareNormalNone SeenThe Formerly [facility] Physician GroupComment on above:Order Comment: Name Collection Type:: Clean-Voided MidstreamPerformed By: #### RA, LEAD,ADULT, JEANNETTE #### [facility] , #### ADDONUAPLUS, CRP, ESR, CBC, CMP wRFX A1C #### [facility] [address] [place] [address] USABilirubin,UrineNegativeNormalNegativeHendry Regional Medical Center Physician GroupComment on above:Order Comment: Name Collection Type:: Clean- Voided MidstreamPerformed By: #### RA, LEAD,ADULT, JEANNETTE #### [facility] , #### ADDONUAPLUS, CRP, ESR, CBC, CMP wRFX A1C #### [place] [address] USAColor (U)YellowNormalYellowHendry Regional Medical Center Physician Group Comment on above:Order Comment: Name Collection Type:: Clean-Voided Midstream Performed By: #### RA, LEAD,ADULT, JEANNETTE #### [facility] , #### ADDONUAPLUS, CRP, ESR, CBC, CMP wRFX A1C #### [facility] [address] [place] [address] USAGlucose Ql (U)NormalNormalNormalThCaribou Memorial Hospital Physician GroupComment on above:Order Comment: Name Collection Type:: Clean-Voided MidstreamPerformed By: #### RA, LEAD,ADULT, JEANNETTE #### [facility] , #### ADDONUAPLUS, CRP, ESR, CBC, CMP wRFX A1C #### [place] [address] USAHyaline Casts,UrineNoneNormal0-8The [facility] Physician GroupComment on above:Order Comment: Name Collection Type:: Clean-Voided MidstreamPerformed By: #### RA, LEAD,ADULT, JEANNETTE #### [facility] , #### ADDONUAPLUS, CRP, ESR, CBC, CMP wRFX A1C #### [place] [address] USAKetones Ql (U)1+HighNegativeThe [facility] Comment on above:Order Comment: Name Collection Type:: Clean-Voided Midstream Performed By: #### RA, LEAD,ADULT, JEANNETTE #### [facility] , #### ADDONUAPLUS, CRP, ESR, CBC, CMP wRFX A1C #### [place] [address] USALeukocyte esterase Test strip Ql (U)NegativeNormalNegative The [facility] Physician GroupComment on above:Order Comment: Name Collection Type:: Clean-Voided MidstreamPerformed By: #### RA, LEAD,ADULT, JEANNETTE #### [facility] , #### ADDONUAPLUS, CRP, ESR, CBC, CMP wRFX A1C #### [place] [address] USAMucus,Urine1+Critically abnormalThe Formerly [facility] Physician GroupComment on above:Order Comment: Name Collection Type:: Clean-Voided MidstreamResult Comment: PERFORMED BY: [place] [address] PATHOLOGIST CLINICAL DIETETIC TECHNICIAN ENEDELIA LAGUNAS M.D.Performed By: #### RA, LEAD,ADULT, JEANNETTE #### [facility] , #### ADDONUAPLUS, CRP, ESR, CBC, CMP wRFX A1C #### [place] [address] USANitrite,UrineNegativeNormalNegativeThe Formerly [facility] Physician GroupComment on above:Order Comment: Name Collection Type:: Clean-Voided MidstreamPerformed By: #### RA, LEAD,ADULT, JEANNETTE #### [facility] , #### ADDONUAPLUS, CRP, ESR, CBC, CMP wRFX A1C #### [place] [address] USAOccult Blood,UrineNegativeNormalNegativeThe Formerly [facility] Physician GroupComment on above:Order Comment: Name Collection Type:: Clean- Voided MidstreamResult Comment: PERFORMED BY: [place] [address] PATHOLOGIST CLINICAL DIETETIC TECHNICIAN ENEDELIA LAGUNAS M.D.Performed By: #### RA, LEAD,ADULT, JEANNETTE #### [facility] , #### ADDONUAPLUS, CRP, ESR, CBC, CMP wRFX A1C #### [place] [address] USApH (U)8.0 [pH]Normal5.0-9.0The [facility] Comment on above:Order Comment: Name Collection Type:: Clean-Voided Midstream Performed By: #### RA, LEAD,ADULT, JEANNETTE #### [facility] , #### ADDONUAPLUS, CRP, ESR, CBC, CMP wRFX A1C #### [place] [address] USAProtein (U) [Mass/Vol]30 mg/dLHighNegativeThe Formerly [facility] Physician GroupComment on above:Order Comment: Name Collection Type:: Clean- Voided MidstreamPerformed By: #### RA, LEAD,ADULT, JEANNETTE #### [facility] , #### ADDONUAPLUS, CRP, ESR, CBC, CMP wRFX A1C #### [place] [address] USARBC,Abbtn7-8Cxyloz3-3Kro [facility] Physician GroupComment on above:Order Comment: Name Collection Type:: Clean-Voided MidstreamPerformed By: #### RA, LEAD,ADULT, JEANNETTE #### [facility] , #### ADDONUAPLUS, CRP, ESR, CBC, CMP wRFX A1C #### [place] [address] USASpecificy Yulee,Urine1.421Iaosib2.001-1.030The [facility] Physician GroupComment on above:Order Comment: Name Collection Type:: Clean- Voided MidstreamPerformed By: #### RA, LEAD,ADULT, JEANNETTE #### [facility] , #### ADDONUAPLUS, CRP, ESR, CBC, CMP wRFX A1C #### [facility] [address] [place] [address] USASquamous Epithelial Cell,Jaxdh34-05Bygh5-1Jkc Former[facility] Physician GroupComment on above:Order Comment: Name Collection Type:: Clean- Voided MidstreamPerformed By: #### RA, LEAD,ADULT, JEANNETTE #### [facility] , #### ADDONUAPLUS, CRP, ESR, CBC, CMP wRFX A1C #### [facility] [address] [place] [address] USAUrobilinogen,Urine2 mg/dLPleasant Valley HospitalNoCritical access hospital Physician GroupComment on above:Order Comment: Name Collection Type:: Clean-Voided MidstreamPerformed By: #### RA, LEAD,ADULT, JEANNETTE #### [facility] , #### ADDONUAPLUS, CRP, ESR, CBC, CMP wRFX A1C #### [facility] [address] [place] [address] USAWBC,Xnyll5-2Zndm2-5Cpm [facility] Physician GroupComment on above:Order Comment: Name Collection Type:: Clean-Voided MidstreamPerformed By: #### RA, LEAD,ADULT, JEANNETTE #### [facility] , #### ADDONUAPLUS, CRP, ESR, CBC, CMP wRFX A1C #### [facility] [address] [place] [address] USAEosinophils Auto (Bld) [#/Vol]Ordered By: Nicho Mast on 19-22-8248Agkqsquxzuw (Bld) [#/Vol]Automated eosinophil count0.0-0.45[facility] HospitalEosinophils/100 WBC Auto (Bld)Ordered By: Nicho Mast on 93-04-2837Fssnjuhprtj/100 WBC (Bld)Automated eosinophil %.[facility]itan HospitalEpithelial cells.squamous [#/area] in Urine sediment by Automated countOrdered By: Nicho Mayen on 74-59-8531Grnmwrrmjp cells.squamous Auto (Urine sed) [#/Area]Epithelial cells.squamous [#/area] in Urine sediment by Automated countHigh0-2FSelect Medical TriHealth Rehabilitation HospitalErythrocyte Sedimentation Rateon 09-34-3822SOG (Bld) [Velocity]14 mm/hNormal0-19The [facility] Comment on above:Result Comment: PERFORMED BY: [place] [address] PATHOLOGIST CLINICAL DIETETIC TECHNICIAN ENEDELIA LAGUNAS M.D.Performed By: #### RA, LEAD,ADULT, JEANNETTE #### [facility] , #### ADDONUAPLUS, CRP, ESR, CBC, CMP wRFX A1C #### [address] StreetErythrocyte distribution width Auto (RBC) [Ratio]Ordered By: Nicho Mayen on 68-53-9104Gagihhekwzj distribution width (RBC) [Ratio] Erythrocyte distribution width [Ratio] by Automated count11.9-15.3FSelect Medical TriHealth Rehabilitation HospitalErythrocyte sedimentation rate by Photometric method Ordered By: Nicho Mayen on 69-16-7765ZWH Photometric method (Bld) [Velocity] Erythrocyte sedimentation rate by Photometric method0[facility]itan HospitalErythrocytes [#/area] in Urine sediment by Automated countOrdered By: Nicho Mayen on 36-74-4401NPD Auto (Urine sed) [#/Area]Erythrocytes [#/area] in Urine sediment by Automated count0-[facility] Tri[facility] Rehabilitation HospitalGlobulin Calc (S) [Mass/Vol]Ordered By: Nicho Mayen on 92-82-0209Gognjbrh (S) [Mass/Vol] Serum globulin measurement by calculation (mass/volume)[facility] HospitalGlucose [Mass/volume] in Serum or PlasmaOrdered By: Nicho Faheem on 53-53-9249Hdycpnq [Mass/Vol]Glucose [Mass/volume] in Serum or Rqdeoo61-967 [facility] HospitalGlucose [Mass/volume] in Urine by Test strip Ordered By: Nicho Mayen on 99-55-2220Yqkwfhm Test strip (U) [Mass/Vol]Glucose [Mass/volume] in Urine by Test stripNormSelect Medical Specialty Hospital [facility], Inc Hematocrit Auto (Bld) [Volume fraction]Ordered By: [facility] on 11-19-2024 Hematocrit (Bld) [Volume fraction]Hematocrit [Volume Fraction] of Blood by Automated qpeadCqlm28.0-46.4FSelect Medical TriHealth Rehabilitation HospitalHemoglobin Test strip Ql (U)Ordered By: [facility] on 08-70-8046Dnjlgtmszk Ql (U)Hemoglobin [Presence] in Urine by Test stripNegCleveland Clinic Akron General Hemoglobin [Mass/volume] in BloodOrdered By: [facility] on 97-84-2609Jhqrqfjrrj (Bld) [Mass/Vol]Hemoglobin [Mass/volume] in BavjuJtpl58.8-15.4FSelect Medical TriHealth Rehabilitation HospitalHyaline casts [#/area] in Urine sediment by Automated count Ordered By: [facility] on 56-60-5613Hekmckk casts Auto (Urine sed) [#/Area] Hyaline casts [#/area] in Urine sediment by Automated count0-8[facility] HospitalKetones Test strip Ql (U)Ordered By: [facility] on 11-19-2024 Ketones Ql (U)Ketones [Presence] in Urine by Test stripPleasant Valley HospitalNegCleveland Clinic Akron GeneralLead, Adulton 60-67-0572Mfeu-Adult Blood<1.8Kuetwb5.0-3.4 The [facility] Physician GroupComment on above:Result Comment: Testing performed by Inductively coupled plasma/Mass Spectrometry. Analysis by inductively coupled plasma/mass spectrometry (ICP/MS) This test was developed and its performance characteristics determined by [employer]. It has not been cleared or approved by the Food and Drug Administration. Environmental Exposure: WHO Recommendation <5.0 Occupational Exposure: OSHA Lead Std 40.0 GI 30.0 Detection Limit = 1.0 Performed at: [address] [id number] Chief Meteorologist: Doron Redding PhD, Phone: [phone] PERFORMED BY: [address] [place] [address] PATHOLOGIST CLINICAL DIETETIC TECHNICIAN ENEDELIA LAGUNAS M.D.Performed By: #### CBC, CMP wRFX A1C, LIPID #### [facility] [address] [place] [address] USALeukocyte esterase [Presence] in Urine by Test strip Ordered By: Nichomell Mayen on 02-06-2173Wycbqxsae esterase Test strip Ql (U)Leukocyte esterase [Presence] in Urine by Test stripNegativeGood Samaritan HospitalLeukocytes [#/area] in Urine sediment by Automated countOrdered By: Nicho Mast on 63-33-9702SVQ Auto (Urine sed) [#/Area]Leukocytes [#/area] in Urine sediment by Automated countHigh0-4FSelect Medical TriHealth Rehabilitation HospitalLeukocytes [#/volume] corrected for nucleated erythrocytes in Blood by Automated coun Ordered By: Nicho Mast on 56-10-1001GHV corrected for nucl RBC Auto (Bld) [#/Vol] Leukocytes [#/volume] corrected for nucleated erythrocytes in Blood by Automated coun3.8-11.6FSelect Medical TriHealth Rehabilitation HospitalLymphocytes Auto (Bld) [#/Vol] Ordered By: Nicho Mast on 64-30-3580Umwqujbbrkh (Bld) [#/Vol]Lymphocytes [#/volume] in Blood by Automated count1.00-4.8[facility] Lymphocytes/100 WBC Auto (Bld)Ordered By: Nicho Mast on 42-58-5604Lvlzrzelxye/100 WBC (Bld)Lymphocytes/100 leukocytes in Blood by Automated count.[facility] HospitalH Auto (RBC) [Entitic mass]Ordered By: Nicho Mast on 78-75-5916XPZ (RBC) [Entitic mass]MCH [Entitic mass] by Automated count24.7-34.3 [facility] HospitalMCHC Auto (RBC) [Mass/Vol]Ordered By: Nicho Mast on 29-47-3161NCFG (RBC) [Mass/Vol]MCHC [Mass/volume] by Automated count 32.0-35.0[facility] HospitalMCV Auto (RBC) [Entitic vol]Ordered By: Nicho Mast on 72-92-4929AVJ (RBC) [Entitic vol]MCV [Entitic volume] by Automated jkola51-914TqesabtgqGood Samaritan HospitalMonocytes Auto (Bld) [#/Vol]Ordered By: Nicho Mayen on 28-82-8603Wgnemkdaw (Bld) [#/Vol]Automated blood monocyte count0.0-0.8[facility] HospitalMonocytes/100 WBC Auto (Bld)Ordered By: Nicho Mayen on 79-06-5325Qdafqlsez/100 WBC (Bld)Automated monocyte %.[facility] HospitalMucus [Presence] in Urine by AutomatedOrdered By: Nicho Mayen on 30-80-9740Npenk Auto Ql (U)Mucus [Presence] in Urine by AutomatedAbnormalGood Samaritan HospitalNeutrophils Auto (Bld) [#/Vol]Ordered By: Nicho Mayen on 78-67-6184Zexkdfnntoe (Bld) [#/Vol] Neutrophils [#/volume] in Blood by Automated count1.8-7.7FSelect Medical TriHealth Rehabilitation HospitalNeutrophils/100 WBC Auto (Bld)Ordered By: Nicho Mayen on 11-19-2024 Neutrophils/100 WBC (Bld)Automated neutrophil %.[facility]itan HospitalNitrite Test strip Ql (U)Ordered By: Nicho Mayen on 75-70-6414Sffpcjh Ql (U) Nitrite [Presence] in Urine by Test stripNegativeGood Samaritan HospitalNo Panel InformationOrdered By: Nicho Mayen on 51-79-2181Fappxpdxl GFR (CKD-EPI)> 60.0 mL/MinGood Samaritan HospitalPharmacy Creatinine Clearance (ChemN/AFSelect Medical TriHealth Rehabilitation HospitalNucleated erythrocytes [Presence] in Blood by Automated countOrdered By: Nicho Mayen on 11-19-2024 Nucleated RBC Auto Ql (Bld)Nucleated erythrocytes [Presence] in Blood by Automated count0-0.5FSelect Medical TriHealth Rehabilitation HospitalPlatelet mean volume Auto (Bld) [Entitic vol]Ordered By: Nicho Mast on 20-62-2984Vxncuxut mean volume (Bld) [Entitic vol]Platelet mean volume [Entitic volume] in Blood by Automated count 6.3-10.7FSelect Medical TriHealth Rehabilitation HospitalPlatelets Auto (Bld) [#/Vol]Ordered By: Nicho Mast on 01-62-5826Sumomyssz (Bld) [#/Vol]Platelets [#/volume] in Blood by Automated nnmib154-114NqukhxjvaGood Samaritan HospitalPotassium [Moles/volume] in Serum or PlasmaOrdered By: Nicho Mast on 29-57-7643Lbsbfqknv [Moles/Vol] Potassium [Moles/volume] in Serum or Plasma3.5-5.1FSelect Medical TriHealth Rehabilitation HospitalProtein Test strip (U) [Mass/Vol]Ordered By: Nicho Mast on 11-19-2024 Protein (U) [Mass/Vol]Protein [Mass/volume] in Urine by Test stripHighNegative [facility] HospitalProtein [Mass/volume] in Serum or PlasmaOrdered By: Nicho Mast on 07-15-4209Azzncgh [Mass/Vol]Protein [Mass/volume] in Serum or Plasma6.4-8.9[facility] HospitalRBC Auto (Bld) [#/Vol]Ordered By: Nicho Mast on 95-61-5508HNR (Bld) [#/Vol]Erythrocytes [#/volume] in Blood by Automated countHigh3.60-5.00[facility] HospitalRheumatoid Factoron 55-35-8757Wdtbfztrmo Factor<10.0Normal<14.0The [facility] Physician GroupComment on above:Result Comment: Performed at: - [facility] [id number] Chief Meteorologist: Doron Redding PhD, Phone: [phone] By: #### RA, LEAD,ADULT, JEANNETTE #### [facility] , #### ADDONUAPLUS, CRP, ESR, CBC, CMP wRFX A1C #### [facility] [address] [place] [address] USASerum or plasma albumin/globulin mass ratioOrdered By: Nicho Mast on 35-98-9538Lmvbjnw/Globulin [Mass ratio]Serum or plasma albumin/globulin mass ratioDayton Children's Hospitalerum or plasma anion gap determinationOrdered By: Nicho Mast on 52-58-5590Aopdf gap [Moles/Vol] Serum or plasma anion gap determination6.0-15.0[facility] Sodium [Moles/volume] in Serum or PlasmaOrdered By: Nicho Mast on 11-19-2024 Sodium [Moles/Vol]Sodium [Moles/volume] in Serum or Ylltar094-506UbmnvynhmDayton Children's Hospitalpecific gravity Test strip (U) [Rel density]Ordered By: Nicho Mast on 10-68-5480Ixsaimba gravity (U) [Rel density]Specific gravity of Urine by Test strip1.001-1.030[facility] HospitalUrea nitrogen [Mass/volume] in Serum or PlasmaOrdered By: Nicho Mast on 88-49-9342Kpzw nitrogen [Mass/Vol]Urea nitrogen [Mass/volume] in Serum or Plasma7-25[facility]itan HospitalUrobilinogen Test strip (U) [Mass/Vol]Ordered By: Nicho Mast on 00-29-6594Hewskxhankeb (U) [Mass/Vol]Urobilinogen [Mass/volume] in Urine by Test stripHighNormalGood Samaritan HospitalWBC Auto (Bld) [#/Vol]Ordered By: Nicho Faheem on 09-24-5325EWD (Bld) [#/Vol]Leukocytes [#/volume] in Blood by Automated count3.8-11.6FSelect Medical TriHealth Rehabilitation HospitalpH Test strip (U)Ordered By: Nicho Mayen on 53-75-2808sR (U)pH of Urine by Test strip5.0-9.0[facility] HospitalIGP,APTIMA HPV,AGE GDLNon 83-25-4163QMG GDLN ACOG TESTING Note.NOMS HealthcareComment on above:TESTS RESULT FLAG UNITS REF RANGE LAB Clinician Provided Cytology Information Source.............Vagina No. of containers..01 ThinPrep Vial Age Algo ACOG Keiko... FLAG LEGEND: L-Low Normal,H-High Normal,LL-Alert Low,HH-Alert High <-Panic Low,>-Panic High,A-Abnormal,AA-Critical Abnormal Performed at: 01 =[address] [address] Renée Brothers MD, HPV APTIMANegativeNegativeNOMS HealthcareComment on above:This nucleic acid amplification test detects fourteen high- risk HPV types (16,18,31,33,35,39,45,51,52,56,58,59,66,68) without differentiation. Performed at: =[address] [id number] Chief Meteorologist: Renée Brothers MD, Phone: [phone] Performed at: [address] [id number] Chief Meteorologist: Renée Brothers MD, Phone: [phone] IGP, APTIMA HPV, RFX 16/18,45Note.NOMS HealthcareComment on above:TESTS RESULT FLAG UNITS REF RANGE LAB DIAGNOSIS: 02 NEGATIVE FOR INTRAEPITHELIAL LESION OR MALIGNANCY. Specimen adequacy: 02 Satisfactory for evaluation. Performed by: 02 June Reid, Litigator (ASC) . 02 Note: Note 02 The [...] High,A-Abnormal,AA-Critical Abnormal Performed at: 02 [address] [facility] [address] [address] Renée Brothers MD, SPATULA-[facility] TOMOSYNTHESIS SCREENING BIon 65-55-3580[place], [place] [address] Mammography Report Signed Patient: DARA CONCEPCION MR#: [id number] : 1980 Acct:[id number] Age/Sex: 43 / F ADM Date: 07/09/24 Loc: MAMMO Attending Dr: Nahun Argueta D.O. Ordering Physician: Nahun Argueta D.O. Results: Date of Service: 07/09/24 Follow Up: Procedure(s): MM tomosynthesis screening BI Accession Number(s): [id number] cc: Nahun Argueta D.O.; Nicho Mayen D.O. Patient Name: DARA CONCEPCION MR#: [id number] : 1980 Exam Date: 07/09/2024 Ordering Doctor: DR Nahun Argueta . RADIOLOGY REPORT PROCEDURE: MM TOMOSYNTHESIS SCREENING BI COMPARISON: MG MAMM SCREEN 3D JOE CAD, 12/18/2022. INDICATIONS: Screening Calculator Name NCI Breast Cancer Risk Assessment Tool 5 Year Breast Cancer Risk 0.60% Lifetime Breast Cancer Risk 8.80% Personal Breast Cancer No Personal Ovarian Cancer No Treatments None Family Cancers None LOCATION: [facility] BREAST COMPOSITION: The breasts are [...] Signed By: 07/09/24 0753 DD/ 075 TD/TT: Batteryman:TBHRadiology, Radiologist, - 07/09/2024 [place] [address] Mammography Report Signed Patient: DARA CONCEPCION MR#: [id number] : 1980 Acct:[id number] Age/Sex: 43 / F ADM Date: 07/09/24 Loc: MAMMO Attending Dr: Nahun Argueta D.O. Ordering Physician: Nahun Argueta D.O. Results: Date of Service: 07/09/24 Follow Up: Procedure(s): MM tomosynthesis screening BI Accession Number(s): [id number] cc: Nahun Argueta D.O.; Nicho Mayen D.O. Patient Name: DARA CONCEPCION MR#: [id number] : 1980 Exam Date: 07/09/2024 Ordering Doctor: DR Nahun Argueta . RADIOLOGY REPORT PROCEDURE: MM TOMOSYNTHESIS SCREENING BI COMPARISON: MG MAMM SCREEN 3D JOE CAD, 12/18/2022. INDICATIONS: Screening Calculator Name NCI Breast Cancer Risk Assessment Tool 5 Year Breast Cancer Risk 0.60% Lifetime Breast Cancer Risk 8.80% Personal Breast Cancer No Personal Ovarian Cancer No Treatments None Family Cancers None LOCATION: [facility] BREAST COMPOSITION: The breasts are [...] Signed By: 07/09/24 0753 DD/ 075 TD/TT: Batteryman: [facility] HospitalRadiology Study observation (narrative)[facility] TOMOSYNTHESIS SCREENING BIOrdered By: Radiologist Radiology on 16-50-7108IDLR [employer] Work Phone: cbc AUTO DIFFon 01-39-9491ATXX #0.0 103/ulNormal 0.0-0.1[facility] HospitalComment on above:Performed By: #### CBC #### [facility] [address] [address] [address] Christopher ArzolaBasophils/100 WBC (Bld)0.4 %Normal0.2-2.0[facility] Comment on above:Performed By: #### CBC #### [facility] [address] [address] [address] Christopher Foster #0.1 103/ulNormal0.0-0.7[facility] CenterComment on above: Performed By: #### CBC #### [facility] [address] [address] [address] Christopher Cardonaosinophils/100 WBC (Bld)2.3 %Normal0.9-7.0[facility] Comment on above:Performed By: #### CBC #### [facility] [address] [address] [address] Christopher Cardonarythrocyte distribution width (RBC) [Ratio]12.8 %Nxdlxr87.0-15.0 [facility] CenterComment on above:Performed By: #### CBC #### [facility] [address] [place] [address] Dr. Christopher ArzolaHematocrit (Bld) [Volume fraction]40.8 %Spoplg91.0-48.0[facility] CenterComment on above:Performed By: #### CBC #### [facility] [address] [place] [address] Dr. Christopher ArzolaHemoglobin (Bld) [Mass/Vol]13.8 g/lVHaczww53.0-16.0[facility] CenterComment on above:Performed By: #### CBC #### [facility] [address] [place] [address] Dr. Christopher Taveras #0.02 10e3/ulNormal0.00-0.03[facility] CenterComment on above:Performed By: #### CBC #### [facility] [address] [place] [address] Dr. Christopher Taveras %0.4 %Normal0.0-0.5The [facility] CenterComment on above: Performed By: #### CBC #### [facility] [address] [place] [address] Dr. Christopher RaoH #1.1 103/ulCritically low1.2-3.8[facility] Comment on above:Performed By: #### CBC #### [facility] [address] [place] [address] Dr. Christopher Buenrostromphocytes/100 WBC (Bld)20.9 %Dtfqxf36.5-60.0[facility] CenterComment on above:Performed By: #### CBC #### [facility] [address] [place] [address] Dr. Christopher GrayUAL DIFF REQNONormalThe [facility] CenterComment on above: Performed By: #### CBC #### [facility] [address] [address] [address] Christopher Au (RBC) [Entitic mass]29.6 ekBxnlei75.7-34.0[facility] CenterComment on above:Performed By: #### CBC #### [facility] [address] [place] [address] Dr. Christopher Au (RBC) [Mass/Vol]33.8 g/gCRewbkj91.9-35.2The [facility] HospitalComment on above:Performed By: #### CBC #### [facility] [address] [place] [address] Dr. Christopher Au (RBC) [Entitic vol]87.6 qUVeepge99.0-99.0[facility] CenterComment on above:Performed By: #### CBC #### [facility] [address] [place] [address] Dr. Christopher Gaviria #0.4 103/ulNormal0.3-0.8[facility] CenterComment on above:Performed By: #### CBC #### [facility] [address] [place] [address] Dr. Christopher Pepperocytes/100 WBC (Bld)6.9 %Normal1.7-12.0[facility] Comment on above:Performed By: #### CBC #### [facility] [address] [place] [address] Dr. Christopher Keene #3.6 103/ulNormal1.4-6.5The [facility] CenterComment on above:Performed By: #### CBC #### [facility] [address] [place] [address] Dr. Christopher Raoutrophils/100 WBC (Bld)69.1 %Fegxhu49.0-75.0[facility] CenterComment on above:Performed By: #### CBC #### [facility] [address] [place] [address] Dr. Christopher Mccarthy mean volume (Bld) [Entitic vol]9.5 fLNormal9.5-13.5[facility] on above:Performed By: #### CBC #### [facility] [address] [place] [address] Dr. Christopher ArzolaPLT230 103/trKaqgsm697-052Gfk [facility] on above: Performed By: #### CBC #### [facility] [address] [place] [address] Dr. Christopher ArzolaRBC4.66 106/ulNormal4.20-5.40[facility] CenterComaleda e. l[facility] on above:Performed By: #### CBC #### [facility] [address] [place] [address] Dr. Christopher ArzolaWBC5.2 103/ulNormal4.0-11.0[facility] on above: Performed By: #### CBC #### [facility] [address] [place] [address] Dr. Christopher ArzolaFREE T4on 36-61-4994Pzgp T4 [Mass/Vol]1.06 ng/dLNormal0.76-1.46 [facility] on above:Performed By: #### FT4 #### [facility] [address] [place] [address] Dr. Christopher ArzolaGLYCOHEMOGLOBIN A1Con 43-17-0888SCJ RECOMMENDATIONSEE BELOWNormal [facility] on above:Result Comment: ADA RECOMMENDED LIMIT 4.0 - 6.0 ADA THERAPEUTIC TARGET < 7.0 ACTION SUGGESTED > 7.0Performed By: #### A1C #### [facility] [address] [place] [address] Dr. Christopher ArzolaGlucose [Mass/Vol]97 mg/dLNormalThSelect Medical Specialty Hospital [facility] on above:Performed By: #### A1C #### [facility] [address] [place] [address] Dr. Christopher ArzolaHbA1c (Bld) [Mass fraction]5.0 %Normal4.5-6.2[facility] on above:Performed By: #### A1C #### [facility] [address] [place] [address] Dr. Christopher ArzolaMG MAMM SCREEN 3D JOE CADon 27-53-2942TL MAMM SCREEN 3D JOE CAD Patient: DARA CONCEPCION Exam Date: 12/18/2022 : 1980 Gender:F Ordering : REINA CHÁVEZ . Admission #: [id number] Family : Order #: [id number] CLICK HERE TO VIEW EXAM RADIOLOGY REPORT PROCEDURE: MAMMOGRAM SCREENING 3D BILATERAL CAD COMPARISON: None. INDICATIONS: Screening mammography Calculator Name NCI Breast Cancer Risk Assessment Tool 5 Year Breast Cancer Risk 0.60% Lifetime Breast Cancer Risk 8.90% Personal Breast Cancer No Personal Ovarian Cancer No Treatments None Family Cancers None LOCATION: [facility] BREAST COMPOSITION: Heterogeneously dense,which may [...] by: Bryon Eugene M.D. on 12/18/2022 at 13:15NormalMercy Health Allen HospitalPREG QUANT HCGon 60-99-5722ILH QUANT<1NMartin Memorial HospitalComment on above:Performed By: #### TSH, PREGQNT #### [facility] [address] [place] [address] Dr. Christopher ArzolaHCG [facility] HospitalComment on above: Result Comment: 5-50 0.2-1 WEEK 50-500 1-2 WEEKS 100-5,000 2-3 WEEKS 500-10,000 3-4 WEEKS 1,000-50,000 4-5 WEEKS 10,000-100,000 5-6 WEEKS 15,000-200,000 6-8 WEEKS 10,000-100,000 2-3 MONTHSPerformed By: #### TSH, PREGQNT #### [facility] [address] [place] [address] Dr. Christopher ArzolaPROTIMEon 10-13-7523YPN Coag (PPP) [Relative time]{INR}NormalThe [facility] CenterComment on above:Performed By: #### PT, PTT #### [facility] [address] [place] [address] Dr. Christopher Sweet [facility] CenterComment on above:Result Comment: DESIRED INR: 2.0 - 3.0 CONDITIONS NOT LISTED BELOW 2.5 - 3.5 FOR PROSTHETIC HEART VALVE REPLACEMENT 2.5 - 3.5 RECURRENT THROMBOSIS Performed By: #### PT, PTT #### [facility] [address] [place] [address] Dr. Christopher Corley Coag (PPP) [Time]9.6 sNormal9.0-11.6[facility] Comment on above:Performed By: #### PT, PTT #### [facility] [address] [place] [address] Dr. Christopher Matos 96-17-3465dBJH Coag (Bld) [Time]30.1 aBswavz98.3-36.2Mer[facility] Allen HospitalComment on above:Performed By: #### PT, PTT #### [facility] [address] [place] [address] Dr. Christopher Montgomery 63-00-2453JPM4.159 uIU/mLNormal0.358-3.740[facility] CenterComaleda [facility] on above:Performed By: #### TSH, PREGQNT #### [facility] [address] [place] [address] Dr. Christopher ArzolaUS PELVIS AND TRANSVAGon 08-19-5923DG PELVIS AND TRANSVAGEXAM: Pelvic ultrasound HISTORY: . [...] Electronically authenticated by: ANAY PEACOCK Date: 2022-12-18 08:14[facility] HospitalOG PANEL 2: 30 to 65on 12-13-2022..NormalThe [facility] CenterComment on above:Result Comment: Performed at: WBPerformed By: #### [id number] #### [facility] [address] [place] [address] Dr. Christopher Montemayor Gdln ACOG Ozfshzn24-90IcnwzmIfzMorrow County HospitalComment on above:Performed By: #### [id number] #### [facility] [address] [address] [address] Christopher ArzolaDIAGNOSIS:CommentNoMorrow County HospitalComaleda e. lutz veterans affairs medical center on above: Result Comment: NEGATIVE FOR INTRAEPITHELIAL LESION OR MALIGNANCY. Performed at: WBPerformed By: #### [id number] #### [facility] [address] [place] [address] Dr. Christopher Rivas AptimaNegativeNormalNegativeMercy Health Allen HospitalComment on above:Result Comment: This nucleic acid amplification test detects fourteen high-risk HPV types (16,18,31,33,35,39,45,51,52,56,58,59,66,68) without differentiation. Performed at: =GPerformed By: #### [id number] #### [facility] [address] [place] [address] Dr. Christopher Rivas Genotype ReflexCommentNoMorrow County HospitalComment on above:Result Comment: Criteria not met, HPV Genotype not performed. Performed at: WBPerformed By: #### [id number] #### [facility] [address] [place] [address] Dr. Christopher ArzolaMethodology:CTIMRegency Hospital Cleveland East on above: Result Comment: The Thin Prep(R) Patternmaker Grader was unable to read this specimen. Therefore a manual review was performed. Performed at: WBPerformed By: #### [id number] #### [facility] [address] [place] [address] Dr. Christopher ArzolaNote:CommentRegency Hospital Cleveland East on above:Result Comment: The Pap smear is a screening test designed to aid in the detection of premalignant and malignant conditions of the uterine cervix. It is not a diagnostic procedure and should not be used as the sole means of detecting cervical cancer. Both false-positive and false-negative reports do occur. . Performed at: WBPerformed By: #### [id number] #### [address] [address] Dr[address] Christopher ArzolaPerformed by:CommentRegency Hospital Cleveland East on above: Result Comment: [place], Litigator (ASCP) Performed at: Performed By: #### [id number] #### [address] [place] [address] Dr[address] Christopher ArzolaSpecimen adequacy:CommentRegency Hospital Cleveland East on above:Result Comment: Satisfactory for evaluation. Endocervical and/or squamous metaplastic cells (endocervical component) are present. Performed at: WBPerformed By: #### [id number] #### [facility] [address] [place] [address] Dr. Christopher ArzolaCOVID + FLU Quick Testingon 84-98-9130XVZR-CoV-2 (COVID-19) RNA BREANNA+probe Ql (Unsp spec)NegativePond Creek [employer] Other COVID + FLU Quick TestingNegativePond Creek [employer] Other Vital Signs Date TimeVital SignValuePerforming OpdvxjqfjHzbkjvpb37-90-3138 08:41-0400Body aglylq897.1 cmMatthew Miranda DO Work Phone: [phone] [place], [place] 7708510-16-2025 08:41-0400 Body mass index (BMI) [Ratio]37.8 kg/r8Wdebejx Miranda DO Work Phone: 1(865)[address] [place], [place] 7708510-16-2025 08:41-0400 Body .96 kgMatthew Miranda DO Work Phone: 1(925)[address] [place], [place] 7708510-16-2025 08:41-0400 Diastolic blood mm[Hg]Jordon Jean DO Work Phone: 1(684)[address] [place], [place] 7708510-16-2025 08:41-0400 Heart rate91 /minMatthew Miranda DO Work Phone: 1(740)[address] [place], [place] 7708510-16-2025 08:41-0400 SaO2% (BldA) [Mass fraction]97 %Jordon Jean DO Work Phone: 1(130)[address] [place], [place] 7708510-16-2025 08:41-0400 Systolic blood oxjnbqgt881 mm[Hg]Jordon Jean DO Work Phone: 1(706)[address] [place], [place] 7708507-02-2025 11:25-0400 Body .1 cmEric Mast DO Work Phone: 1(549)[address] [place], [place] 1573607-02-2025 11:25-0400 Body mass index (BMI) [Ratio]35.4 kg/m2Eric Mast DO Work Phone: 1([phone] [place], [place] 1573607-02-2025 11:25-0400 Body yebogb17.61 kgEric Mast DO Work Phone: 1(924)7-[address] [place], [place] 3066907-02-2025 11:25-0400 Diastolic blood cbblvsit92 mm[Hg]Nicho Mast DO Work Phone: 1(555)4-[address] [place], [place] 3066907-02-2025 11:25-0400 Heart rate90 /minEric Mast DO Work Phone: 1(865)[address] [place], [place] 3066907-02-2025 11:25-0400 SaO2% (BldA) [Mass fraction]97 %Nicho Mast DO Work Phone: 1(475)[facility] [place], [place] 3066907-02-2025 11:25-0400 Systolic blood mm[Hg]Nicho Mast DO Work Phone: 1(795)[address] [place], [place] 1573603-13-2025 15:30-0400 Body xznmwcsxmoc80.8 [degF]Nicho Mast DO Work Phone: 1(877)[address] [place], [place] 7708503-13-2025 15:30-0400 Body cisxzk04.51 kgEric Mast DO Work Phone: 1(949)[address] [place], [place] 7708503-13-2025 15:30-0400 Diastolic blood fupumqdw45 mm[Hg]Nicho Mast DO Work Phone: 1(992)[address] [place], [place] 7708503-13-2025 15:30-0400 Systolic blood jekzoejd834 mm[Hg]Nicho Mast DO Work Phone: 1(780)[address] [place], [place] 7708501-27-2025 14:19-0500 Body ymziid441.1 cmEric Mast DO Work Phone: 1(000)[address] [place], [place] 7708501-27-2025 14:19-0500 Body mass index (BMI) [Ratio]36.1 kg/m2Eric Mast DO Work Phone: 1(309)[address] [place], [place] 7708501-27-2025 14:19-0500 Body ojfmhwibvjx88.5 [degF]Nicho Mast DO Work Phone: 1(094)[address] [place], [place] 7708501-27-2025 14:19-0500 Body lfchne85.54 kgEric Mast DO Work Phone: 1(412)[address] [place], [place] 7708501-27-2025 14:19-0500 Diastolic blood ycoonwlc55 mm[Hg]Nicho Mast DO Work Phone: 1(699)[address] [place], [place] 7708501-27-2025 14:19-0500 Heart oyss841 /minEric Mast DO Work Phone: [facility]01-27-2025 14:19-0500 SaO2% (BldA) [Mass fraction]96 %Nicho Mast DO Work Phone: [facility]01-27-2025 14:19-0500 Systolic blood mm[Hg]Nicho Mast DO Work Phone: [facility]12-02-2024 09:29-0500 Body yfvjff696.1 cmAlakhwinder Crowley PA Work Phone: [facility] HospitalKijouucwmu18-80-1407 09:29-0500Body mass index (BMI) [Ratio]37.44 kg/m2Amy Crowley PA Work Phone: [facility] HospitalOhzmgcnwzm63-89-0518 09:29-0500Body aitkws708.06 kgAmy Crowley PA Work Phone: [facility] HospitalTdzvsvcytl15-47-6289 09:29-0500Diastolic blood iwmzhlqw22 mm[Hg]Zainab Crowley PA Work Phone: no[place] Yacgvujsrp36-51-5039 09:29-0500Systolic blood xxstawrv990 mm[Hg]Zainab Saira PA Work Phone: [facility] HospitalGepamebkpk68-17-1728 08:00-0500Body dptocc814.37 cmEric Mast Other [employer] Other 01-29-2024 08:00-0500Body mass index (BMI) [Ratio] 36.29 kg/m2Eric Mast Other [employer] Other 01-29-2024 08:00-0500Body ujlpkjmdvng28.5 [degF]Nicho Mast Other [employer] Other 01-29-2024 08:00-0500Body oteebi317.47 kgEric Mast Other [employer] Other 01-29-2024 08:00-0500Diastolic blood ktoujseo68 mm[Hg] Nicho Mast Other [employer] Other 01-29-2024 08:00-0500Respiratory rate18 /minEric Mast Other [employer] Other 01-29-2024 08:00-6586VaM2% (BldA) [Mass fraction]98 % Nicho Mast Other [employer] Other 01-29-2024 08:00-0500Systolic blood yunjuebl026 mm[Hg] Nicho Mast Other [employer] Other 01-05-2022 16:30-0500Body qrmkau564.37 cmEric Mast Other [employer] Other 01-05-2022 16:30-0500Body mass index (BMI) [Ratio] 37.46 kg/m2Eric Mast Other [employer] Other 01-05-2022 16:30-0500Body fzaluyigpxp84 [degF]Nicho Mast Other [employer] Other 01-05-2022 16:30-0500Body .69 kgEric Mast Other [employer] Other 01-05-2022 16:30-0500Diastolic blood uprkxbsy96 mm[Hg] Nicho Mast Other [employer] Other 01-05-2022 16:30-0500Respiratory rate18 /minEric Mast Other [employer] Other 01-05-2022 16:30-8035HhG0% (BldA) [Mass fraction]99 % Nicho Mast Other [employer] Other 01-05-2022 16:30-0500Systolic blood mm[Hg] Nicho Mast Other [employer] Other Encounters Encounter DateEncounter TypeCare ProviderFacilityStart: 07-08-2025 End: 49-56-3705Gcjkmfo encounter procedureMadevante Jean DO-[facility]: 07-08-2025 End: 85-34-5687arjuyudfdcLfzkedi N Widmer DO Work Phone: -[facility]: 07-08-2025 Encounter for general adult medical examination without abnormal findingsMadevante JeanHendry Regional [facility] Center Physician GroupStart: 06-23-2025 End: 61-11-1097stfllfxsrhZevriyi N Widmer DO Work Phone: [facility] Work Phone: Start: 06-23-2025 End: 86-17-4315Frnxgoe encounter procedureMadevante Jean DO-[facility] Work Phone: Start: 06-23-2025 End: 28-57-8007Ubwncvaw examinationMadevante Jean [facility] Hospitalt[facility]: 03-09-2025 End: 40-61-3422zxctzvqfhnYohh Mast DO Work Phone: [facility] Work Phone: Start: 03-09-2025 End: 34-98-8622Klnwhqb encounter procedureLuke Stone MANUAL TESTER-[facility] Work Phone: Start: 11-19-2024 End: 08-94-5216Xgsmkda encounter procedureEric Mast DO Work Phone: [facility] Districttart: 11-19-2024 End: 88-05-6457bzhbohwgeeJlwf Mast DO Work Phone: [facility] Work Phone: Start: 11-18-2024 End: 55-24-8886Publlni encounter procedureEric Mast DO Work Phone: [facility] Work Phone: Start: 10-04-2024 End: 53-83-4408Drvdtkg encounter procedureEric Mast DO Work Phone: [facility] Work Phone: Start: 08-09-2024 End: 54-71-9767Lzekht flowsheetZainab HUANG Work Phone: [facility] OBStart: 08-09-2024 End: 32-16-3202Ugyvbc flowsheetZainab HUANG Work Phone: [facility] OBStart: 08-09-2024 End: 71-69-8491Ujsuyspdi Result EncounterZainab HUANG Work Phone: [facility] External Department UnsolicitedStart: 08-09-2024 End: 09-65-3140Rxzqlct encounter procedureZainab HUANG Work Phone: [facility] Work Phone: Start: 08-09-2024 End: 68-86-3540Wndtczkn preventive med est patient 40-64yrsAmy Saira HUANG Work Phone: [facility] OBComment on above:Well woman exam with routine gynecological exam; Breast cancer screening by mammogramStart: 08-09-2024 End: 30-38-9106rvnynzsawxLXE RAMEYNot AvailableStart: 07-09-2024 End: 57-05-3904Gvetxnzdx Result EncounterCorey Kendall DO Work Phone: [facility] External Department UnsolicitedStart: 07-09-2024 End: 64-24-4533Jufvforrs Result EncounterCorey Kendall DO Work Phone: [facility] External Department UnsolicitedStart: 06-10-2024 Patient encounter statusEric Mast DO Work Phone: [facility]: 10-06-2023 End: 08-28-5073gwbelpjlhhUvtw Mast Other [employer] Other Start: 73-61-2692Igyhnu outpatient visit 15 minutes Nicho MastFPG [facility] [place]kyStart: 09-11-2023 End: 37-56-4582sdvjguiijxBzpl Mast Other [employer] Other Start: 43-23-1459Idufydtmq encounterEric MastFPG [facility] CareStart: 08-25-2023 End: 75-37-4787illgodnkzyHxdj Mast Other [employer] Other Start: 23-75-4168Jqxtlctez encounterEric MastFPG [facility] SandclearwateryStart: 12-18-2022 End: 41-14-8159zjbiiidcjsOZZ SAIRA .Facility:B7Lpbkh: 12-09-2022 End: 73-49-4613zoawqwseewYBA SAIRA .Facility:O4Uppon: 08-19-2022 End: 21-52-6822hhwrjaaighGshw Mast Other [employer] Other Start: 41-97-6520Ckwwzquuk encounterEric MastFPG [facility] SandclearwateryStart: 09-17-2021 End: 45-52-5493jizqhtzddoOpeh Mast Other [employer] Other Start: 14-06-8381Mpqwnu outpatient visit 10 minutes Nicho MastFPG [facility] [place]kyStart: 09-12-2021 End: 70-01-0572oankgyfbrzQsid Mast Other [place] [employer] Other Start: 09-83-5597Ozigpu outpatient visit 15 minutes Nicho MastFP[facility] Joseluis Procedures DateProcedureProcedure DetailPerforming ClinicianStart: 77-69-6806SXX,APTIMA HPV,AGE GDLNZainab HUANG Work Phone: Start: 61-05-7872HU TOMOSYNTHESIS SCREENING BICorey Kendall DO Work Phone: Start: 90-13-7652ZnvgvzkpzojEbs Ramey PA Work Phone: Start: 04-34-9285Uvzsibntjju observation [Identifier] in Cervix by Cyto Kizzy HUANG Work Phone: Plan of Treatment DateCare ActivityDetailAuthorStart: 20-55-8042Zjqkvxuoc for malignant neoplasm of cervixNONY HealthcareStart: 08-15-2025 End: 65-42-2939Vaeiolq encounter procedureNOMS BCP OBStart: 64-83-5775Vgqrrzozb for malignant neoplasm of breastMammogramNOMS HealthcareStart: 11-19-2024 Rheumatoid factor [Units/volume] in Serum or PlasmaDayton Children's Hospitaltart: 11-19-2024 End: 49-58-3978ZremecupxDayton Children's Hospitaltart: 08-09-2024 End: 40-15-7197UW Breast - bilateral ScreeningBilateral screening mammogram Imaging Routine Breast cancer screening by mammogram Expected: 08/09/2024 (Approximate), Expires: 10/10/2025[facility] Work Phone: comment on above:Expected: 08/09/2024 (Approximate), Expires: 10/10/2025Start: 08-09-2024 End: 49-23-8362Ufngnaa encounter gtyvgrtup36/02/2024 9:00 AM EST Office Visit [facility] [address] [address] Zainab Chávez PA [address] [place] [address] ArrivedKAISER MANTECA [facility] OBComment on above:ArrivedStart: 05-09-2024 Influenza vaccinationInfluenza Vaccine (#1)[facility] HealthcareHomogenous nuclear Ab pattern [Titer] in [facility] CenterLead [Presence] in [facility] Health SystemNuclear Ab [Titer] in [facility] Medical CenterTHIN PREP TIS PAP AND HR HPV DNATHIN PREP TIS PAP AND HR HPV DNA Pathology and Cytology Routine Well woman exam with routine gynecol ogical exam Ordered: 08/09/2024[facility] HealthcareComment on above:Ordered: 08/09/2024[facility] Immunizations Immunization DateImmunizationNotesCare EvflkgagRmlosgvq65-28-5778ISCED-62 Vaccine Pfizer - Documentation Purposes OnlyEric Mast Other [address] [place], [place] 1903104-16-2021COVID-19 Vaccine Pfizer - Documentation Purposes OnlyEric Mast Other [address] [place], [place] 1903110-01-2020influenza, injectable, quadrivalent, preservative freeEric Mast Other [address] [place], [place] 5596510-01-2020influenza virus vaccine, unspecified formulationZainab HUANG Work Phone: [facility] HospitalBlezrhfydn23-18-3487wvxgfnhjj, seasonal, injectableEric Mast Other [address] [place] [address] Payers DatePayer CategoryPayerPolicy [id number] Health InsuranceGENERIC COMMERCIAL Member Subscriber Plan / Payer (Effective 2024-Present) Name: Jamey Dara Fiona Relation to Subscriber: Self Name: Dara Concepcion Payer ID: Not on file Group ID: [id number] Type: Not on file Address: [address] [place] [id number] Health System Ontario HospitalBC Member Subscriber Plan / Payer (Effective 2021-Present) Name: Dara Concepcion Relation to Subscriber: Self Name: Dara Concepcion PayerID: Not on file Type: Not on file Address: [address] [place] [id number] North [id number] Health Insurance [id number] [id number] [id number] Social History DateTypeDetailFacilityUnknown if ever smokedNoboone hospital center [employer] Other Start: 07-30-2023 End: 96-27-6193Lte Assigned At [facility] HealthcareStart: 05-10-2023 End: 80-98-5231Tgwtrwo smoking status NHISNever smoked tobaccoNONY Healthcare Start: 59-20-4406Fnemlkf use and exposureSmokeless tobacco non-userNONY HealthcareStart: 08-04-2023 End: 83-44-6656Jhfdcsksh beverage intakeCurrent drinker of alcohol (finding)[facility] HealthcareStart: 07-30-2023 End: 32-55-6891Haaeyzo of Social functionNOMS HealthcareHow often to you have a drink containing alcohol?2-4 times a monthNONY HealthcareHow many standard drinks containing alcohol do you have on a typical day?1 or 2NOMS HealthcareHow often do you have 6 or more drinks on 1 occasion?NeverNONY HealthcareStart: 43-92-5074Iqkniwh CommentAlcohol: 1 or 2 drinks on a typical day / 2 to 4 times a month. Caffeine: more than 4 cups per dayMOUNTAIN POINT MEDICAL [facility]ENTER HealthcareStart: 93-05-3244Fod assigned at birthNot on fileMOUNTAIN POINT MEDICAL CENTER HealthcareStart: 95-43-1531XquHwcuhw (finding) [facility] Hospitaltart: 80-75-5305Nbc Assigned At [facility] Hospitaltart: 56-12-0146TrjXybnzvCRDH Healthcare Clinical Notes 09-12-2021 to 06-23-2025 Note Date & PyjuCdzfZtwifwbt58-36-6863 Evaluation note* Diagnosis Onset Date Resolution Status Admit Date Primary hypertension chronicOctober 2024 8:29amImpaired concentrationnoneactiveOctober 2024 8:29amEncounter for routine history and physical examination of adult noneactiveOctober 2024 8:29am [facility] Work Phone: 1(474) 780-407707-02-2025 Evaluation note* Diagnosis Onset Date Resolution Status Admit Date Urticaria acuteJuly 2nd, 2025 11:14amRash of necknoneactiveJuly 2024 11:14am [facility] Work Phone: 1(900) 315-846501-27-2025 Evaluation note* Diagnosis Onset Date Resolution Status Admit Date Irritation of both eyes acuteJanuary 2024 2:13pmEpiscleritisacuteMarch 2024 3:22pmPrimary hypertensionacuteMarch 2024 3:22pmUrticariaacuteMarch 2024 3:22pm [facility] Work Phone: 1(509) 370-780512-02-2024 History of Present illness Narrative* REINA Mcclendon - 08/09/2024 9:00 AM EST Reason for Appointment: Patient ID: Dara Concepcoin is a 43 y.o. female who presents [...] Date History of medical problems 2006 Hypertension ([facility]) HISTORY PAST MEDICAL HISTORY SOCIAL HISTORY Past Medical History: Diagnosis Date History of medical problems 2006 Toxemia Hypertension ([facility]) Social History Tobacco Use Smoking status: Never [...] nursing note reviewed. Exam conducted with a desolderer present. Vitals: Estimated body mass index is [...] behalf of: REINA Mcclendon documented in this encounterPershing Memorial HospitalHumxpvgdqp66-85-1773 Evaluation note* Encounter Date Diagnosis Assessment Notes Treatment Notes Treatment Clinical Notes Sep, Hypertension, essential (ICD-10 - I10) BP controlled, continue Rx. We will review her preoperative labs from [facility]. Work on weight loss. Recheck in a year, sooner if problems [employer] Other 10-12-2023 History general Narrative - Reported* Type Description Date Medical History Hypertension Surgical Historyessure sterilization tgxhiudqv12/13Surgical HistoryHysterectomy 06/19/23Hospitalization HistoryNo Hospitalization history information [employer] Other 01-10-2022 Evaluation note* Encounter Date Diagnosis Assessment Notes Treatment Notes Treatment Clinical Notes Sep, Exposure to COVID-19 virus (ICD- 10 - Z20.822) COVID test is negative. Continue supportive care, warning signs reviewed. She is fully vaccinated so she was advised that she may return to work as long as she wears a mask. Call if problems arise. [employer] Other 01-05-2022 Evaluation note* Encounter Date Diagnosis [...] in the next few days,call with problems. [employer] Other Evaluation noteNo InformationNort [employer] Other Evaluation note* Diagnosis Well woman exam with routine gynecological exam Routine gynecological examination Breast cancer screening by mammogram documented in this encounter [facility] HealthcareEvaluation note* Diagnosis Onset Date Resolution Status Admit Date Urticaria acuteJuly 2024 11:14am [facility] Work Phone: Evaluation note* Diagnosis Onset Date Resolution Status Admit Date Primary hypertension chronicOctober 2024 8:29amImpaired concentrationnoneactiveOctober 2024 8:29amEncounter for routine history and physical examination of adult noneactiveOctober 2024 8:29am [facility] Work Phone: History general Narrative - Reported* Type Description Date Medical History Hypertension Surgical Historyessure sterilization [id number] HistoryNo Hospitalization history information [place] [employer] Other Reason for referral (narrative)No reason for referral information availableTrumbull [facility] Work Phone: Summary Purpose Family [...] and content) DATE CREATED AUTHOR 12/23/2022 [facility] DATE CREATED AUTHOR AUTHOR'S ORGANIZ ATION 08/09/2024 [facility] EPIC DATE CREATED AUTHOR AUTHOR'S ORGANIZ ATION 07/09/2025 [facility] Care Teams (unrecognized sec tion and content) Team MemberRelationshipSpecialtyStart DateEnd Date Nicho Mayen MD [address] [place] [address] PCP - General02/05/23Team MemberRelationshipSpecialtyStart DateEnd Date Nicho Mayen MD [address] [facility] [place] [address] PCP - General02/05/23 Team Status: Active Member [...] 2025Team MemberRelationshipSpecialtyStart DateEnd Date Nicho Mayen DO [facility]02/05/23 Team Status: Active Member Role/Relationship Status Dates Jordon Jean , Primary Care Provider Active Team Status: [...] BE BASED ON THE PRIMARY CLINICAL RECORDS. [email or web address] [facility]. provides no warranty or guarantee of the accuracy or completeness of information in this document.
[2025-08-17 20:08] LABS: Age Gdln ACOG Testing Note (.); IGP, Aptima HPV, rfx 16/18,45 Note (.)
== END 2025-08-15 15:07 | disposition home or self-care (01) ==
LOC: LAB 15:06
PROVIDERS: Visit Provider Physician Assistant
DX: Z01.419 Encounter for gynecological examination (general) (routine) without abnormal findings (principal)
CPT/HCPCS: 87624; 88175